=== PATIENT | male | born 1965 | race Caucasian/White ===

== ENCOUNTER 2018-09-28 21:33 | Emergency (ER) | payer SELFPAY ==
[~2018-09-28] VITALS: Ht 175.3 cm; Wt 65.9 kg
[~2018-09-28 21:33] MED LIST: ASPIRIN CHEWABL81 MG PO; ATORVASTATIN CA40 MG PO; BACTRIM DS1 TAB PO; FISH OIL1000 MG PO; GLIPIZIDE10 MG PO; LANTUS SC; LEVEMIR FLEXPEN SC; LISINOPRIL20 M1 PO; LOPID600 MG PO; LOVASTATIN20 MG PO; LOVASTATIN40 M1 PO; LYRICA50 MG PO; LYRICA75 MG PO; METFORMIN500 MG PO; NOVOLIN R IJ; NOVOLOG MIX; NOVOLOG MIX SC; TRICOR145 MG PO; VANCOMYCIN HCL1.5GM IV; [UNRECOGNIZED DRUG - OTHER] PO
[2018-09-28 22:40] LABS: IMMATURE GRANULOCYTES 0.4 % (0.0-5.0); MEAN CELL VOLUME 106.6 fL CALC (80.0-100.0); MEAN CORPUSCULAR HGB 34.6 pG CALC (26.0-32.0); MEAN CORPUSCULAR HGB CONC 32.5 g/L CALC (32.0-36.0); NEUT# 6.95 thou/uL (1.82-7.42); RED BLOOD COUNT 1.82 mill/uL (4.70-6.10); RED CELL DISTRI WIDTH 12.9 % (11.5-15.5)
[2018-09-28 22:47] LABS: HEMATOCRIT 19.4 % (39.0-50.0); HEMOGLOBIN 6.3 g/dl (14.0-18.0)
[2018-09-28 23:08] LABS: ALKALINE PHOSPHATASE 121 u/l (38-126); BUN 7 mg/dL (9-20); CHLORIDE 104 mmol/l (95-108); LIPASE 147 u/l (23-300); SGOT/AST 92 u/l (17-59)
[2018-09-28 23:18] LABS: ALBUMIN 2.6 g/dL (3.2-5.0); AMYLASE < 30 u/l (30-110); ANION GAP 16 (6-22 (CALC)); BILIRUBIN, TOTAL 0.3 mg/dL (0.0-1.4); BUN/CREATININE RATIO 6 (12-20 (CALC)); CARBON DIOXIDE 17 mmol/l (22-30); CREATININE 1.1 mg/dL (0.7-1.3); GFR > 60 ML/MIN (>=60 (CALC)); GFR FOR AFR.AMER. > 60 ML/MIN (>=60 (CALC)); POTASSIUM 3.3 mmol/l (3.5-5.1); SODIUM 134 mmol/l (137-146); TOTAL PROTEIN 5.3 g/dL (6.3-8.2)
[2018-09-28 23:21] LABS: MYOGLOBIN 67 ng/mL (0 - 121)
[2018-09-28 23:29] LABS: INTERNATIONAL NORMALIZED RATIO 1.1 RATIO (0.7-1.3); PROTHROMBIN TIME 11.6 SECONDS (9.0-12.5)
[2018-09-29 01:10] VITALS: BP 135/76
[2018-09-29 01:35] VITALS: BP 133/75
== END 2018-09-29 01:50 | disposition short-term general hospital (02) | DRG 379 ==
LOC: ED 21:33
PROVIDERS: Emergency Medicine
PROC: 30233N1 Transfusion of Nonautologous Red Blood Cells into Peripheral Vein, Percutaneous Approach (ICD-10-PCS; principal; 2018-09-29)
DX: K92.2 Gastrointestinal hemorrhage, unspecified (principal); R55 Syncope and collapse; R07.9 Chest pain, unspecified; D64.9 Anemia, unspecified; E87.6 Hypokalemia; F10.20 Alcohol dependence, uncomplicated; Y90.8 Blood alcohol level of 240 mg/100 ml or more; R51 Headache; Y92.009 Unspecified place in unspecified non-institutional (private) residence as the place of occurrence of the external cause
CPT/HCPCS: P9016; S0164

== ENCOUNTER 2019-03-11 09:10 | Emergency (ER) | payer MEDICAID ==
[~2019-03-11] VITALS: Ht 175.3 cm; Wt 80.0 kg
[2019-03-11] MEDS ORDERED: PAROXETINE10 MG PO (10:15)
[2019-03-11] MEDS ORDERED: TRESIBA100 UNIT/M SC (10:16)
[2019-03-11] MEDS ORDERED: ATORVASTATIN CA20 MG PO (10:16)
[2019-03-11 10:20] LABS: HEMATOCRIT 28.8 % (39.0-50.0); HEMOGLOBIN 9.6 g/dl (14.0-18.0); IMMATURE GRANULOCYTES 0.4 % (0.0-5.0); MEAN CELL VOLUME 95.4 fL CALC (80.0-100.0); MEAN CORPUSCULAR HGB 31.8 pG CALC (26.0-32.0); MEAN CORPUSCULAR HGB CONC 33.3 g/L CALC (32.0-36.0); NEUT# 5.84 thou/uL (1.82-7.42); RED BLOOD COUNT 3.02 mill/uL (4.70-6.10); RED CELL DISTRI WIDTH 13.9 % (11.5-15.5)
[2019-03-11 10:33] LABS: ALBUMIN 3.7 g/dL (3.2-5.0); BILIRUBIN, TOTAL 0.4 mg/dL (0.0-1.4); CREATININE 1.6 mg/dL (0.7-1.3); TOTAL PROTEIN 6.6 g/dL (6.3-8.2)
[2019-03-11] MEDS ORDERED: [UNRECOGNIZED DRUG - OTHER] PO (10:34)
[2019-03-11] MEDS ORDERED: NOVOLIN 70/30 SC (10:41)
[2019-03-11 10:42] LABS: POTASSIUM 5.4 mmol/l (3.5-5.1)
[2019-03-11] MEDS ORDERED: METOPROL TAR25 MG PO (10:46)
[2019-03-11] MEDS ORDERED: NIFEDIPINE ER60 M1 PO (10:48)
[2019-03-11] MEDS ORDERED: OMEGA 31000 MG PO (10:50)
[2019-03-11] MEDS ORDERED: VENLAFAXINE HCL75 M1 PO (10:52)
[2019-03-11] MEDS ORDERED: FERRAPLUS 90 PO (10:53)
[2019-03-11] MEDS ORDERED: GABAPENTIN100 MG PO (10:54)
[2019-03-11] MEDS ORDERED: FUROSEMIDE20 MG PO (10:54)
[2019-03-11] MEDS ORDERED: AUGMENTIN500TAB PO (10:55)
[2019-03-11] MEDS ORDERED: SANTYL250 UNIT/G TOP (10:56)
[2019-03-11] MEDS ORDERED: AMOXICILLIN/CL875 MG PO (11:25)
[2019-03-11 12:43] VITALS: BP 142/68
== END 2019-03-11 12:45 | disposition home or self-care (01) ==
LOC: ED 09:10
PROVIDERS: Family Medicine
DX: E11.65 Type 2 diabetes mellitus with hyperglycemia (principal); I10 Essential (primary) hypertension; F17.200 Nicotine dependence, unspecified, uncomplicated; T38.3X6A Underdosing of insulin and oral hypoglycemic [antidiabetic] drugs, initial encounter; Z79.4 Long term (current) use of insulin; Z91.128 Patient's intentional underdosing of medication regimen for other reason

== ENCOUNTER 2019-03-18 11:48 | Inpatient (IN) | payer MEDICAID ==
[~2019-03-18] VITALS: Ht 175.3 cm; Wt 85.0 kg
[2019-03-18] VITALS (7 sets, daily range): BP systolic 157–195; BP diastolic 73–94
[~2019-03-18 11:48] MED LIST changes: +AMOXICILLIN/CL875 MG PO; +ATORVASTATIN CA20 MG PO; +AUGMENTIN500TAB PO; +FERRAPLUS 90 PO; +FUROSEMIDE20 MG PO; +GABAPENTIN100 MG PO; +METOPROL TAR25 MG PO; +NIFEDIPINE ER60 M1 PO; +NOVOLIN 70/30 SC; +OMEGA 31000 MG PO; +PAROXETINE10 MG PO; +SANTYL250 UNIT/G TOP; +TRESIBA100 UNIT/M SC; +VENLAFAXINE HCL75 M1 PO; +[UNRECOGNIZED DRUG - OTHER] PO
--- NOTE | 2019-03-18 12:08 | NUR ---
PATIENT TO ROOM VIA WHEELCHAIR AND PHYSICIAN AT BEDSIDE FOR EVAL
--- NOTE | 2019-03-18 12:15 | NUR ---
EKG COMPLETED AND LABS COLLECTED. PT RESTING ON STRETCHER IN NAD. SA02 90% ON 3L NC AT THIS TIME. CALL FREEMAN WITHIN REACH.
[2019-03-18 12:31] LABS: HEMATOCRIT 29.7 % (39.0-50.0); HEMOGLOBIN 9.7 g/dl (14.0-18.0); IMMATURE GRANULOCYTES 0.6 % (0.0-5.0); MEAN CELL VOLUME 96.1 fL CALC (80.0-100.0); MEAN CORPUSCULAR HGB 31.4 pG CALC (26.0-32.0); MEAN CORPUSCULAR HGB CONC 32.7 g/L CALC (32.0-36.0); NEUT# 6.27 thou/uL (1.82-7.42); RED BLOOD COUNT 3.09 mill/uL (4.70-6.10)
[2019-03-18 12:44] LABS: ALBUMIN 3.9 g/dL (3.2-5.0); BILIRUBIN, TOTAL 0.3 mg/dL (0.0-1.4); CREATININE 1.8 mg/dL (0.7-1.3); TOTAL PROTEIN 7.6 g/dL (6.3-8.2)
--- NOTE | 2019-03-18 13:00 | NUR ---
PT RESTING IN STRETCHER IN NAD. PT REQUESTING SOMETHING TO EAT AND DRINK. SPO2 92% ON 3L, NC. PT AWARE OF NPO STATUS AND WAIT TIME. CALL FREEMAN WITHIN REACH.
--- NOTE | 2019-03-18 13:45 | NUR ---
IV FLUIDS INFUSING AT THIS TIME. PT AGGITATED STATING "NOTHING EVER GOES RIGHT IN MY LIFE" PT RESTING ON RIGHT SIDE IN STRETCHER AND WAS UPDATED ON PLAN OF CARE AND WAIT TIME. CALL FREEMAN WITHIN REACH.
--- NOTE | 2019-03-18 14:06 | NUR ---
PT YELLING OUT "I AM DONE WITH THIS, I AM OUT OF PATIENCE, I NEED TO LEAVE NOW". MD AT BEDSIDE TO TALK TO PT.
--- NOTE | 2019-03-18 14:10 | NUR ---
PER MD TO SIGN PT OUT AGAINST MEDICAL ADVISE. PT NOT COOPORATIVE AND IS REFUSING TO STAY.
--- NOTE | 2019-03-18 14:17 | NUR ---
DISCONNECTING PATIENTS EQUIPMENT BECAUSE HE WANTS TO GO AMA AND PT IS TALKING ON PHONOE WITH SCHEDULING AND STARTS TALKING ABOUT HOW HE CANNOT TAKE THIS ANYMORE GO HERE GO THERE, GO TO [place] GO TO BK, I CANNOT TAKE THIS ANYMORE I'M JUST GONNA PUT A BULLET IN MY HEAD TONIGHT. NURSE Deena MASSEY R.N. ALSO HEARD PT SAY THIS, WHEN I STATED YOU DON'T WANNA DO THAT PT STATES "WELL THATS WHATS GONNA HAPPEN, I CAN'T TAKE THIS ANYMORE" AND LEAVES UNIT, CHARGE NURSE, ENGINEERING CLERK AND MD NOTIFIED. POLICE DEPARTMENT NOTIFIED WELL.
--- NOTE | 2019-03-18 14:20 | NUR ---
MD AND WICK TENDER FOLLOWED PATIENT [facility] KEEPING CLOSE EYE ON PATIENT WHILE POLICE CONTACTED. CONTACT MADE WITH PATIENT BY MERLYN MURILLO AND PATIENT BROUGHT BACK TO THE ED. PATIENT STATED THAT HE WAS NOT GOING TO COOPERATE AND WOULD LEAVE THE FIRST CHANCE HE GOT. MD NOTIFIED AND POLICE AT BEDSIDE
--- NOTE | 2019-03-18 15:08 | NUR ---
MD AT BEDSIDE TO DISCUSS RESULTS AND PLAN OF CARE.
--- NOTE | 2019-03-18 15:17 | NUR ---
SBAR PRINTED TO FLOOR
--- NOTE | 2019-03-18 15:20 | NUR ---
PT YELLING FROM THE ROOM "I NEED TO SHIT AND YOU BETTER BRING ME SOMETHING OR I WILL SHIT ON THE FLOOR". BSC TO ROOM.
--- NOTE | 2019-03-18 15:34 | NUR ---
PATEINT REFUSING ALL MEDICAL CARE AT THIS TIME
--- NOTE | 2019-03-18 15:45 | NUR ---
TSQRD CONSULT PLACED FOR INFECTOUS DISEASE PATIENT REST QUIETLY STILL REFUSING ANY CARE AT THIS TIME
--- NOTE | 2019-03-18 16:40 | NUR ---
REPORT CALLED TO ICU FARHAN AWAITNG ADMISSION ORDERS
--- NOTE | 2019-03-18 16:55 | NUR ---
PT ARRIVED FROM ER VIA STRETCHER WITH SITTER AT BEDSIDE. AMBULATED TO THE BED. IV SITE INTACT.
--- NOTE | 2019-03-18 17:30 | NUR ---
ASSESSMENT IS COMPLTED: IV SITE IS FREE FROM REDNESS OR EDEMA. PT IS ALERT AND ORIENTED. BREATH SOUNDS ARE CLEAR,BILATERALLY, HR IS REG, PULSES ARE STRONG X4, ABD IS SOFT WITH ACTIVE BS,. CONTINUE TO OBSERVE AND MONITOR. DRESSING ON BILATERAL FEET CDI. PT WAS AT HYPERBARIC CHAMBER AND WAS SOB AND BROUGHT TO ER PER PT.
--- NOTE | 2019-03-18 18:00 | NUR ---
CALLED AND INQUIRED ABOUT PT. INFORMED OF THE BILAT FEET INFECTION THAT ARE BEING TAKEN CARE OF WITH WOUND CARE AND HYPERBARIC CHAMBER. IV VANCO BEING USED DAILY. THE MACHINE WOULD NOT CONNECT IN ICU.
--- NOTE | 2019-03-18 18:42 | NUR ---
BP MEDS PENDING BRACELET FROM REGISTRATION.
--- NOTE | 2019-03-18 19:22 | NUR ---
REPORT GIVEN BY FARHAN CARDONA. PATIENT ALERT AND ORIENTED. LAYING IN BED WITH SITTER PRESENT AT BEDSIDE. RESP EVEN AND UNLABORED. NO S/S OF DISTESS NOTED. PICC-VERA DRESSING INTACT. BILATERAL DRESSING ON FEET CDI. PLAN OF CARE DISCUSSED. PATIENT INFORMED TO CALL WITH ANY QUESTIONS OR CONCERNS. ASSESMENT COMPLETE AT THIS TIME.
--- NOTE | 2019-03-18 20:08 | NUR ---
PATIENT STATES THAT THE DRESSING ON BOTH FEET WERE CHANGED 03/18 IN THE MORNING BEFORE HE WAS ADMITTED. HE HAS DRESSING CHANGES PERFORMED THU-THU AT [facility]. HE HAS ALSO ASKED IF I COULD REMOVE THE BP CUFF AND PULSE OX. I TOLD HIM THAT I WILL STILL NEED TO GET HIS BP AND O2 SAT EVERY TWO HOURS, HE STATES THAT IT WAS FINE TO DUE SO. HE STATES THAT WTH BOTH ON HE FEEL TIED TO THE BED.
[2019-03-18] MEDS ORDERED: ASPIRIN81 MG PO (20:26)
[2019-03-18] MEDS ORDERED: GLIPIZIDE10 MG PO (20:26)
[2019-03-18] MEDS ORDERED: PAROXETINE10 MG PO (20:27)
[2019-03-18] MEDS ORDERED: TRESIBA100 UNIT/M SC (20:28)
[2019-03-18] MEDS ORDERED: [UNRECOGNIZED DRUG - OTHER] PO (20:29)
[2019-03-18] MEDS ORDERED: NOVOLIN 70/30 SC (20:30)
[2019-03-18] MEDS ORDERED: METOPROL TAR25 MG PO (20:31)
[2019-03-18] MEDS ORDERED: NIFEDIPINE60 MG PO (20:32)
[2019-03-18] MEDS ORDERED: OMEGA 31000 MG PO (20:32)
[2019-03-18] MEDS ORDERED: VENLAFAXINE HCL75 M1 PO (20:33)
[2019-03-18] MEDS ORDERED: FERRAPLUS 90 PO (20:34)
[2019-03-18] MEDS ORDERED: FUROSEMIDE20 MG PO (20:34)
[2019-03-18] MEDS ORDERED: GABAPENTIN100 MG PO (20:35)
--- NOTE | 2019-03-18 21:30 | NUR ---
PATIENT MED REC PERFORMED. DOCTOR INFORMED. SOME MEDICATION REORDERD PER MD ORDERS.
--- NOTE | 2019-03-18 22:50 | NUR ---
PATIENT IS EXPERIENCING SOB AND O2 SAT 80-85%. PATIENT WAS PLACED ON 2L VIA NC. O2 SAT IS NOW 92-96%.
--- NOTE | 2019-03-18 23:36 | NUR ---
PATIENT BP IS ELEVATED. PATIENT MEDICATED PER MD ORDER.
[2019-03-19] VITALS (10 sets, daily range): BP systolic 145–190; BP diastolic 70–99
--- NOTE | 2019-03-19 02:00 | NUR ---
PATIENT REFUSED 0200 VITALS
--- NOTE | 2019-03-19 04:10 | NUR ---
PATIENT AWAKE AND USING URINAL. RESP EVEN AND UNLABORED. NO S/S OF DISTRESS NOTED.
--- NOTE | 2019-03-19 04:49 | NUR ---
PATIENT MEDICATED FOR ELEVATED BP PER MD ORDERS
--- NOTE | 2019-03-19 06:13 | NUR ---
PATIENT RESTING WITH EYES CLOSED. RESP EVEN AND UNLABORED. NO S/S OF DISTRESS NOTED.
--- NOTE | 2019-03-19 07:30 | NUR ---
pt resting in bed with eyes closed; no apparent distress noted; easily aroused; pt offers complaints of "splitting headache" and left foot pain; will medicate; no n/v noted; no sob; resp even and unlabored; lungs clear; skin color wnl; ra at this time; hr reg; doppler pedal pulses; no edema noted; sr-st on monitor; abd soft with bs present; no bm noted per comic book writer; pt voiding without complication; bsc/ urinal; VERA picc intact with no redness or edema noted at site; dressing cdi to bilat feet; pt with sitter at bedside/ gracia act; plan of care/ am meds explained; call light within reach; will continue to monitor
--- NOTE | 2019-03-19 08:19 | NUR ---
restless in bed; no apparent distress noted; sr on monitor; sitter at bedside; iv intact; call light within reach; will continue to monitor
--- NOTE | 2019-03-19 09:00 | NUR ---
CISCO Terrell present at bedside to assess pt and discuss plan of care
--- NOTE | 2019-03-19 09:08 | NUR ---
am meds explained and administered; picc flushed with good blood aspirate noted; abt infusing without complication; will continue to monitor
--- NOTE | 2019-03-19 10:15 | NUR ---
awake in bed; pt offers no complaints at this time; iv patent; vanco infusing without complication; sr on monitor; sitter present at bedside; call light within reach; will continue to monitor
--- NOTE | 2019-03-19 12:06 | NUR ---
awake in bed; no apparent distress noted; pt offers no complaints; self bathe/ linen changed per staff; sr on monitor; iv intact; sitter present at bedside; call light within reach; will continue to monitor
--- NOTE | 2019-03-19 13:00 | NUR ---
Dr Rodriguez and CISCO Terrell present at bedside to assess pt and discuss plan of care; dressings removed per MD; serosang drainage noted to bilat feet wounds; photo obtained; orders received to apply simple dressing; wounds conver with nonadhesive pad and gauze; secured with kerlix and tape; bp reassessed; call light within reach; will continue to monitor
--- NOTE | 2019-03-19 14:07 | NUR ---
resting in bed with eye closed; no apparent distress noted; resp even and unlabored; sr on monitor; iv intact; sitter present at bedside; call light within reach; will continue to monitor
--- NOTE | 2019-03-19 15:25 | NUR ---
returned to unit in stable condition; hair washed as per request
--- NOTE | 2019-03-19 16:20 | NUR ---
resting on left side with eyes closed; frequent shaking of legs noted; no apparent distress noted; iv intact; dressing cdi to bilat feet; ra; no sob; sr on monitor; call light within reach; will continue to monitor
--- NOTE | 2019-03-19 17:26 | NUR ---
accucheck obtained; pt sitting on side of bed for dinner
--- NOTE | 2019-03-19 18:06 | NUR ---
pt awake in bed; no apparent distress noted; pt offers no complaints; iv intact; ra; calm and cooperative; sitter remains at pt bedside; call light within reach
--- NOTE | 2019-03-19 19:15 | NUR ---
PATIENT LAYS WITH HOB 30 DEGREES. NO COMPLAINTS OF SOB OR NO SOB OBSERVED. ON ROOM AIR. WATCHES TV. ALERT AND ORIENTED X4. HEAD TO TOE NURSING ASSESSMENT COMPLETED, SEE CHARTING. POC FOR TONIGHT DISCUSSED. VERA 1 LUMEN PICC FLUSHES AND RETURNS BLOOD PROPERLY. DRESSING ON BILATERAL FEET ARE CDI. DENIES PAIN. PATIENT IS ABLE TO SIT UP ON SIDE OF BED TO EAT AND DRINK. HE REQUESTED COFFEE AND SALTINE CRACKERS. SR ON TELEMETRY. AFEBRILE. WILL CONTINUE TO MONITOR. CALL LIGHT WITHIN REACH.
--- NOTE | 2019-03-19 20:40 | NUR ---
BLOOD WITHDRAWN FROM VERA PICC FOR VANCO TROUGH. VERA PICC FLUSHES AND RETURNS BLOOD PROPERLY, DRESSING CDI.
--- NOTE | 2019-03-19 20:58 | NUR ---
PATIENT REQUESTED CUPS OF COFFEE AND SNACKS. I OFFERED HIM LOW SUGAR PUDDING. HE AGREES, I ALSO INSTRUCTED HIM THAT I WILL BE CHECKING HIS BLOOD SUGAR FIRST.
--- NOTE | 2019-03-19 21:35 | NUR ---
ANTIBIOTIC INFUSING NOW AFTER VANCO TROUGH RESULT. THE IV MACHINE STARTED TO BEEP AND THE PATIENT EXCLAIMED, "I AIN'T GONNA BE PUTTING UP WITH THIS." I INSTRCTED HIM THAT THE ANTIBIOTIC TIME TO BE INFUSED IS TWO HOURS AND HE CONTINUED TO EXCLAIM, "I AIN'T GONNA PUT UP WITH THAT." I UNSTRUCTED HIM THAT THE IV MACHINES STARTS TO BEEP IF IT HAS AIR IN THE LINE OR WHEN IT IS FINISHED INFUSING, AND AIR IN THE LINE WAS THE REASON IT WAS BEEPING AT THAT MOMENT, WHICH I FIXED RIGHT AWAY. NO MORE COMPLAINTS RECEIVED.
--- NOTE | 2019-03-19 22:25 | NUR ---
PATIENT ABLE TO SAFELY TRANSFER TO AND BSC, HAD MODERATE SIZED FORMED BROWN STOOL. NOW LAYS WITH HOB 30 DEGREES. BP 190/99 RIGHT AFTER LAYING BACK IN BED. INSTRUCTED PATIENT I WILL RECHECK AGAIN AFTER HE HAS NOT DONE ANY ACTIVITY.
--- NOTE | 2019-03-19 22:35 | NUR ---
PATIENT C/O MONITOR MACHINE BEEPING, I HAVE EXPLAINED TO HIM IT IS BECAUSE HIS BLOOD PRESSURE IS RENZO HIGH WHICH I HAD ALREADY INFORMED HIM OF HIS HIGH BP, HE STATES, "WHEN MY BLOOD PRESSURE IS HIGH THEY GIVE ME A SHOT OF MEDICINE." I HAVE EDUCATED ON PARAMETERS FOR MEDICATION. BP WAS RECHECKED AND NOW READS 159/83.
[2019-03-20] VITALS (10 sets, daily range): BP systolic 134–189; BP diastolic 70–87
--- NOTE | 2019-03-20 00:15 | NUR ---
PATIENT LAYS ON HIS R-SIDE, COOPERATES TO HAVE BLOOD PRESSURE, PULSE OX, AND TEMP DONE. NO COMPLAINTS OF PAIN. WATCHES TV. SITTER PRESENT. CALL LIGHT WITHIN REACH. WILL CONTINUE TO MONITOR. HAS ALSO HAD A CUP OF COFFEE AND SALTINE CRACKERS.
--- NOTE | 2019-03-20 02:50 | NUR ---
PATIENT AWAKE AND ALERT, REQUESTED CRACKERS AND COFFEE. SITS UP ON SIDE OF BED. NO ACUTE DISTRES SHOWN. CALL LIGHT WITHIN REACH.
--- NOTE | 2019-03-20 04:20 | NUR ---
PATIENT LAYS ON HID RIGHT SIDE, AROUSES WITH PAINFUL STIMULI. NO COMPLAINTS. NO NEEDS AT THIS TIME. CALL LIGHT WITHIN REACH. WILL CONTINUE TO MONITOR.
[2019-03-20 04:39] LABS: HEMATOCRIT 27.4 % (39.0-50.0); HEMOGLOBIN 9.1 g/dl (14.0-18.0); MEAN CELL VOLUME 94.5 fL CALC (80.0-100.0); MEAN CORPUSCULAR HGB 31.4 pG CALC (26.0-32.0); MEAN CORPUSCULAR HGB CONC 33.2 g/L CALC (32.0-36.0); RED BLOOD COUNT 2.9 mill/uL (4.70-6.10); RED CELL DISTRI WIDTH 13.8 % (11.5-15.5)
[2019-03-20 05:01] LABS: ANION GAP 10 (6-22 (CALC)); BUN 22 mg/dL (9-20); BUN/CREATININE RATIO 16 (12-20 (CALC)); CARBON DIOXIDE 25 mmol/l (22-30); CHLORIDE 105 mmol/l (95-108); CREATININE 1.3 mg/dL (0.7-1.3); GFR 58 ML/MIN (>=60 (CALC)); GFR FOR AFR.AMER. > 60 ML/MIN (>=60 (CALC)); POTASSIUM 4.9 mmol/l (3.5-5.1); SODIUM 135 mmol/l (137-146)
--- NOTE | 2019-03-20 06:01 | NUR ---
PATIENT AWAKENS AND COMPLAINS OF HEADACHE, TYLENOL OFFERED AND GIVEN. AFEBRILE. REQUESTS A CUP OF COFFEE. SR ON TELEMETRY. SITTER PRESENT. CALL LIGHT WITHIN REACH. BSC WAS ALSO EMPTIED.
--- NOTE | 2019-03-20 07:15 | NUR ---
pt resting in bed with eyes closed; easily aroused; offers complaints of headache; prev medicated; no n/v/ noted; assessment completed at thist jessica; pt alert and oriented; resp even and unlabored; lungs clear; skin color wnl; ra; hr reg; doppler pedal pulses; no edema noted; sr on monitor; abd soft with bs present; pt reports bm last pm; no urine to inspect at this time; urinal/ bsc present; SL picc intact to maurice; no redness or edema noted at site; dressings cdi to bilat feet; pt remains under Avelar Act; sitter present at bedside; call light within reach; will continue to monitor; calm and cooperative with care at present
--- NOTE | 2019-03-20 08:05 | NUR ---
resting with eyes closed; no apparent distress noted; sr on monitor; sitter at bedside; will continue to monitor
--- NOTE | 2019-03-20 09:00 | NUR ---
am meds explained and administered; CISCO Terrell present at bedside; will continue to monitor
--- NOTE | 2019-03-20 10:12 | NUR ---
resting with eyes closed; occasional restlessness noted; sr on monitor; sitter present at bedside; call light within reach; will continue to monitor
--- NOTE | 2019-03-20 11:30 | NUR ---
accucheck of 346; freq snacks/diabetic diet explained; pt admtis to being a prev smoker and wanting a cigarette; nicotine patch to be ordered; dressings to bilat feet changed as per orders; sr on monitor; pt requesting pitcher of coffee; decaf provided; picc flushed and patent with good blood aspirate; will continue to monitor
--- NOTE | 2019-03-20 12:05 | NUR ---
awake in bed; offers no complaints; no apparent distress noted; sr on monitor; iv intact; call light within reach; will continue to monitor
--- NOTE | 2019-03-20 13:27 | NUR ---
Dr Rodriguez and CISCO Terrell present at bedside to assess pt and discuss plan of care
--- NOTE | 2019-03-20 14:10 | NUR ---
pt awake in bed; pt requesting to use phone to call mom; [place] protocol explained; pt provided portable phone to call mother and now declines; sr on monitor; iv intact; pt offers no complaints; sitter present at bedside; will continue to monitor
--- NOTE | 2019-03-20 16:13 | NUR ---
resting in bed on left side with eyes closed; no apparent distress noted; iv intact; sr on monitor; sitter at bedside; call light within reach; will continue to monitor
--- NOTE | 2019-03-20 17:49 | NUR ---
awake in bed; no apparent distress noted; pt offers no complaints; iv intact; sr on monitor; pt requesting coffee/ provided; calm and cooperative; sitter at bedside; call light within reach
--- NOTE | 2019-03-20 19:39 | NUR ---
PT AWAKE RESTING IN BED WATCHING T.V. TEMP 98.1. MONITOR SR HR 80'S. PT IS ALERT AND ORIENTED X3. PLEASANT AND COOPERATIVE. RESP EVEN AND UNLABORED. LUNGS CLEAR BILAT. ABD SOFT AND NONDISTENDED WITH BOWEL SOUNDS PRESENT. RT UPPER ARM SINGLE LUMEN PICC IS PATENT WITH DRESSING CLEAN AND DRY. NO LOWER EXT EDEMA NOTED. PEDAL PULSES PALPATED BILAT. BILAT FOOT DRESSINGS CLEAN AND DRY WITH NO DRAINAGE PRESENT. PER SHIFT REPORT BILAT LOWER EXT DRESSINGS CHANGED TODAY ON DAYSHI. PT DENIES ANY DISCOMFORT AT THIS TIME. MONITOR READING SR. SITTER AT BEDSIDE. WILL CONTINUE TO CLOSELY MONITOR. FREQUENT ROUNDS MADE. CALL FREEMAN WITHIN REACH.
--- NOTE | 2019-03-20 21:04 | NUR ---
PT EATING EVENING SNACK. VSS. B/P 145/74, HR 80. PICC PATENT. RESP EVEN AND UNLABORED. OFFERS NO COMPLAINTS. SITTER AT BEDSIDE. CALL FREEMAN WITHIN REACH.
--- NOTE | 2019-03-20 22:00 | NUR ---
RESTING IN BED WATCHING T.V. VOIDED 500CC OF CLEAR YELLOW URINE. MONITOR SR HR 80'S. OFFERS NO COMPLAINTS. SITTER AT BEDSIDE. FREQUENT ROUNDS MADE. CALL FREEMAN WITHIN REACH.
--- NOTE | 2019-03-21 00:15 | NUR ---
PT RESTING IN BED WATCHING T.V. VSS. RESP EVEN AND UNLABORED. NO DISTRESS NOTED. PT FREQUENTLY ASKING FOR SNACKS AND COFFEE. OFFERS NO COMPLAINTS. MONITOR READING SR. SITTER AT BEDSIDE. FREQUENT ROUNDS MADE. CALL FREEMAN WITHIN REACH.
--- NOTE | 2019-03-21 01:33 | NUR ---
MEDICATED WITH TYLENOL 1000MG PO FOR DISCOMFORT IN BILAT FEET. CALL FREEMAN WITHIN REACH. SITTER AT BEDSIDE.
--- NOTE | 2019-03-21 03:52 | NUR ---
PT RESTING IN BED WITH EYES CLOSED. RESP EVEN AND UNLABORED. NO DISTRESS NOTED. PICC PATENT. SITTER AT BEDSIDE. FREQUENT ROUNDS MADE. CALL FREEMAN WITHIN REACH.
--- NOTE | 2019-03-21 04:30 | NUR ---
PT AWAKE RESTING IN BED. B/P 164/82. SR HR 80'S. PICC PATENT. RESP EVEN AND UNLABORED. PT FREQUENTLY WANTING COFFEE. OFFERS NO COMPLAINTS. SITTER AT BEDSIDE. ASSESSMENT UNCHANGED. FREQUENT ROUNDS MADE. CALL FREEMAN WITHIN REACH.
[2019-03-21 04:33] VITALS: BP 164/82
--- NOTE | 2019-03-21 06:05 | NUR ---
PT REFUSES TO LEAVE B/P CUFF ON FOR HOURLY VITALS. B/P WAS TAKEN WHEN PT AGREED TO HAVE B/P TAKEN.
[2019-03-21 07:00] VITALS: BP 156/90
--- NOTE | 2019-03-21 07:07 | NUR ---
STANDING UP ON SIDE OF BED TO USE URINAL.
--- NOTE | 2019-03-21 07:19 | NUR ---
PT SITTING UP ON SIDE OF BED, EATING BREAKFAST. PT DEMANDING COFFEE PRIOR TO TRAY DELIVERY; PT ADVISED COFFEE WILL BE ON TRAY, PT STATES HE WANTED COFFEE "NOW!" PT VERBALLY SELF UP, STATING HE "WANTS TO KNOW HIS RIGHTS UNDER THIS ACT BC HE CANT EVEN TAKE A PISS OR SHIT WITHOUT SOMEONE WATCHING HIM IN THIS [facility] ROOM." SITTER AT BEDSIDE. WILL CONTINUE TO MONIOR.
--- NOTE | 2019-03-21 07:26 | NUR ---
PT RETURNED TO BED, CLINICAL MENTAL HEALTH COUNSELOR ASSISTED PT WITH COVERS TO WHICH PT REPLIED "OH COME ON, IM NOT A CHILD". WILL LIMIT INTERACTIONS WITH PT UNTIL MD ROUNDS.
--- NOTE | 2019-03-21 08:29 | NUR ---
GEREMIAS SALOMON @BEDSIDE TO ASSESS PT.
--- NOTE | 2019-03-21 08:32 | NUR ---
PT BEING VERBALLY AGRESSIVE WITH DECKHAND FISHING VESSEL, CUSSING, MAKING JERKY MOVEMENTS. SECURITY CALLED TO UNIT.
--- NOTE | 2019-03-21 08:39 | NUR ---
LAB @BEDSIDE FOR DRAW. BLOOD DRAWN FROM PICC LINE BY ICU STAFF.
[2019-03-21 08:48] LABS: HEMATOCRIT 29.5 % (39.0-50.0); HEMOGLOBIN 9.9 g/dl (14.0-18.0); IMMATURE GRANULOCYTES 0.3 % (0.0-5.0); MEAN CELL VOLUME 93.4 fL CALC (80.0-100.0); MEAN CORPUSCULAR HGB 31.3 pG CALC (26.0-32.0); MEAN CORPUSCULAR HGB CONC 33.6 g/L CALC (32.0-36.0); NEUT# 4.84 thou/uL (1.82-7.42); RED BLOOD COUNT 3.16 mill/uL (4.70-6.10); RED CELL DISTRI WIDTH 13.5 % (11.5-15.5)
[2019-03-21 09:00] VITALS: BP 178/87
--- NOTE | 2019-03-21 09:16 | NUR ---
DR GUTIERREZ @BEDSIDE FOR WOUND CONSULT. REDRESSEED BILATERAL FEET. PT CONTINUES TO BE ANGRY & VERBALLY AGGRESSIVE. PT STATES "THE LONGER HE STAYS HERE THE WORST HE'LL GET". WHEN EXPLAINING THE BEARDEN ACT, PT STATES HE "DOESNT WANT TO HURT HIMSELF BUT HE MIGHT HURT US". PT NOTIFIED IT IS A FEDERAL OFFENSE TO BE PHYSICALLY AGGRESSIVE TOWARDS MEDICAL PERSONEL. PT STATES HE "WILL TAKE THE 5TH". SITTER REMAINS AT BEDSIDE.
[2019-03-21 09:20] LABS: ANION GAP 12 (6-22 (CALC)); BUN 19 mg/dL (9-20); BUN/CREATININE RATIO 14 (12-20 (CALC)); CARBON DIOXIDE 25 mmol/l (22-30); CHLORIDE 106 mmol/l (95-108); CREATININE 1.3 mg/dL (0.7-1.3); GFR 58 ML/MIN (>=60 (CALC)); GFR FOR AFR.AMER. > 60 ML/MIN (>=60 (CALC)); POTASSIUM 5.1 mmol/l (3.5-5.1); SODIUM 138 mmol/l (137-146)
--- NOTE | 2019-03-21 09:39 | NUR ---
CONSULT FOR I&D PLACED ON TSRD FOR URGENT APPOINTMENT AT 1600. SITTER REMAINS AT BEDSIDE. WILL CONTINUE TO MONITOR.
--- NOTE | 2019-03-21 10:40 | NUR ---
PT BECOMING AGGITATED, ASKING FOR WATER. PT EDUCATED ON NPO STATUS. PT CUSSING & PULLING ON BILATERAL SOFT WRIST RESTRAINTS. PT DOES NOT HAVE AN ACCENT AT THIS TIME, STATING "THIS IS BULLSHIT, HE DIDN'T TELL THE OFFICERS ANYTHING. FUCK".
[2019-03-21 10:50] LABS: CALCULATED LDLCHOLESTEROL 74 mg/dL (62-129 (CALC)); CHOLESTEROL HDL RATIO 6.7 (<4.4 (CALC)); HDL CHOLESTEROL 24 mg/dL (>=40); MAGNESIUM 1.8 mg/dL (1.6-2.3); TOTAL TRIGLYCERIDES 309 mg/dl (30-149); VLDL CHOLESTROL 62 mg/dl (8-62 (CALC))
[2019-03-21 10:56] LABS: TOTAL CHOLESTEROL 160 mg/dl (0-199)
--- NOTE | 2019-03-21 11:28 | NUR ---
DR KIDD & GEREMIAS SALOMON @BEDSIDE FOR ASSESSMENT.
[2019-03-21 12:00] VITALS: BP 180/93
--- NOTE | 2019-03-21 12:47 | NUR ---
PT LAYING IN BED, WATCHING TV. NO S/S OF DISTRESS AT THIS TIME. SITTER REMAINS @BEDSIDE. WILL CONTINUE TO MONITOR.
--- NOTE | 2019-03-21 13:41 | NUR ---
FARHAN QUINTANA @BEDSIDE INFORMING PT THAT THERE WAS NO MEDICAL HOLD ON HIM SO HIS BEARDEN ACT WILL AT 1510 TODAY AND HE MAY SIGN OUT AMA AFTER THAT.
[2019-03-21 14:00] VITALS: BP 169/82
--- NOTE | 2019-03-21 14:38 | NUR ---
DR KIDD AWARE PT WISHES TO LEAVE AMA AT 1510. PER MD, PT SHOULD F/UP WITH WOUND CARE.
--- NOTE | 2019-03-21 15:20 | NUR ---
PT SIGNED AMA CONSENT; ADVISED TO F/UP WITH WOUND CARE. PICC CARE FLUSHED WITH HEPARIN PER PROTOCOL. PT DRESSED HIMSELF, USED UNIT PORTABLE PHONE TO CALL FOR A RIDE HOME. PT REQUESTED COPY OF AMA PAPERWORK.
--- NOTE | 2019-03-21 15:26 | NUR ---
PT AMBULATED OUT THE DOOR WITH STEADY GAIT IN STABLE CONDITION.
== END 2019-03-21 15:26 | disposition left against medical advice (07) | DRG 880 ==
LOC: ED 11:48 → ED-I 15:32 → ED 15:48 → ICU 15:49
PROVIDERS: Family Medicine; Nurse Practitioner Family; ADMIT Internal Medicine; ATTEND Internal Medicine
DX: R45.851 Suicidal ideations (principal); L97.528 Non-pressure chronic ulcer of other part of left foot with other specified severity; L97.518 Non-pressure chronic ulcer of other part of right foot with other specified severity; R09.02 Hypoxemia; E11.621 Type 2 diabetes mellitus with foot ulcer; E11.51 Type 2 diabetes mellitus with diabetic peripheral angiopathy without gangrene; I70.245 Atherosclerosis of native arteries of left leg with ulceration of other part of foot; I70.235 Atherosclerosis of native arteries of right leg with ulceration of other part of foot; E11.65 Type 2 diabetes mellitus with hyperglycemia; I10 Essential (primary) hypertension; E78.5 Hyperlipidemia, unspecified; I44.7 Left bundle-branch block, unspecified; E11.40 Type 2 diabetes mellitus with diabetic neuropathy, unspecified; F32.9 Major depressive disorder, single episode, unspecified; I25.10 Atherosclerotic heart disease of native coronary artery without angina pectoris; F17.200 Nicotine dependence, unspecified, uncomplicated; I25.2 Old myocardial infarction; Z89.412 Acquired absence of left great toe; Z79.4 Long term (current) use of insulin; Z89.422 Acquired absence of other left toe(s); T38.3X6A Underdosing of insulin and oral hypoglycemic [antidiabetic] drugs, initial encounter; Z91.128 Patient's intentional underdosing of medication regimen for other reason; Z91.11 Patient's noncompliance with dietary regimen
CPT/HCPCS: Q9967

== ENCOUNTER 2019-04-11 08:51 | Inpatient (IN) | payer MEDICAID ==
[~2019-04-11] VITALS: Ht 175.3 cm; Wt 97.8 kg
[~2019-04-11 08:51] MED LIST changes: +ASPIRIN81 MG PO; +GABAPENTIN400 M2 PO; +LASIX 40 MG TAB40 MG PO; +NIFEDIPINE60 MG PO; +TOPROL XL PO
[2019-04-11 10:00] LABS: HEMATOCRIT 24.6 % (39.0-50.0); HEMOGLOBIN 8.1 g/dl (14.0-18.0); IMMATURE GRANULOCYTES 0.4 % (0.0-5.0); MEAN CELL VOLUME 95.3 fL CALC (80.0-100.0); MEAN CORPUSCULAR HGB 31.4 pG CALC (26.0-32.0); MEAN CORPUSCULAR HGB CONC 32.9 g/L CALC (32.0-36.0); NEUT# 7.87 thou/uL (1.82-7.42); RED BLOOD COUNT 2.58 mill/uL (4.70-6.10); RED CELL DISTRI WIDTH 14.1 % (11.5-15.5)
[2019-04-11 10:26] LABS: BILIRUBIN, TOTAL 0.4 mg/dL (0.0-1.4); POTASSIUM 4.5 mmol/l (3.5-5.1); TOTAL PROTEIN 7.9 g/dL (6.3-8.2)
[2019-04-11 10:28] LABS: CREATININE 2.3 mg/dL (0.7-1.3)
[2019-04-11] MEDS ORDERED: LIPITOR20 M1 PO (10:30)
[2019-04-11] MEDS ORDERED: TRIGLIDE160 MG PO (10:32)
[2019-04-11] MEDS ORDERED: ACCOLATE10 MG PO (10:33)
[2019-04-11 13:47] VITALS: BP 139/69
[2019-04-11 16:23] VITALS: BP 134/64
[2019-04-11 20:03] VITALS: BP 156/77
[2019-04-12] VITALS (12 sets, daily range): BP systolic 135–162; BP diastolic 52–80
[2019-04-12 05:29] LABS: HEMATOCRIT 23.8 % (39.0-50.0); HEMOGLOBIN 7.7 g/dl (14.0-18.0); IMMATURE GRANULOCYTES 0.6 % (0.0-5.0); MEAN CELL VOLUME 96.7 fL CALC (80.0-100.0); MEAN CORPUSCULAR HGB 31.3 pG CALC (26.0-32.0); MEAN CORPUSCULAR HGB CONC 32.4 g/L CALC (32.0-36.0); NEUT# 6.56 thou/uL (1.82-7.42); RED BLOOD COUNT 2.46 mill/uL (4.70-6.10); RED CELL DISTRI WIDTH 14.2 % (11.5-15.5)
[2019-04-12 05:46] LABS: CREATININE 1.9 mg/dL (0.7-1.3); MAGNESIUM 2.1 mg/dL (1.6-2.3); POTASSIUM 4.6 mmol/l (3.5-5.1)
[2019-04-13] VITALS (7 sets, daily range): BP systolic 178–185; BP diastolic 85–93
[2019-04-13 06:00] LABS: URINE CLARITY CLOUDY; URINE COLOR YELLOW
[2019-04-13 06:01] LABS: URINE BILIRUBIN - DIPSTICK NEGATIVE (NEGATIVE); URINE BLOOD DIPSTICK SMALL (NEGATIVE); URINE GLUCOSE - DIPSTICK >=1000 mg/dL (NEGATIVE); URINE KETONE Negative (NEGATIVE); URINE LEUK ESTERASE NEGATIVE (Negative); URINE NITRITE - DIPSTICK NEGATIVE (Negative); URINE PH 5.5 (4.5-8.0); URINE PROTEIN - DIPSTICK 100 mg/dL (NEG-TRACE); URINE RBC 0-2 RBC/hpf (0-5); URINE SPECIFIC GRAVITY 1.025; URINE UROBILINOGEN - DIPSTICK 0.2 E.U./dL (0.2); URINE WBC 0-2 WBC/hpf (0-5)
[2019-04-13 07:51] LABS: HEMATOCRIT 27.4 % (39.0-50.0); HEMOGLOBIN 9.1 g/dl (14.0-18.0); IMMATURE GRANULOCYTES 0.5 % (0.0-5.0); MEAN CELL VOLUME 93.5 fL CALC (80.0-100.0); MEAN CORPUSCULAR HGB 31.1 pG CALC (26.0-32.0); MEAN CORPUSCULAR HGB CONC 33.2 g/L CALC (32.0-36.0); NEUT# 7.68 thou/uL (1.82-7.42); RED BLOOD COUNT 2.93 mill/uL (4.70-6.10); RED CELL DISTRI WIDTH 14.8 % (11.5-15.5)
[2019-04-13 08:15] LABS: ALBUMIN 3.4 g/dL (3.2-5.0); ALKALINE PHOSPHATASE 83 u/l (38-126); ANION GAP 17 (6-22 (CALC)); BILIRUBIN, TOTAL 0.3 mg/dL (0.0-1.4); BUN 29 mg/dL (9-20); BUN/CREATININE RATIO 20 (12-20 (CALC)); CARBON DIOXIDE 17 mmol/l (22-30); CHLORIDE 107 mmol/l (95-108); CREATININE 1.4 mg/dL (0.7-1.3); GFR 53 ML/MIN (>=60 (CALC)); GFR FOR AFR.AMER. > 60 ML/MIN (>=60 (CALC)); POTASSIUM 5.1 mmol/l (3.5-5.1); SGOT/AST 20 u/l (17-59); SODIUM 137 mmol/l (137-146); TOTAL PROTEIN 6.6 g/dL (6.3-8.2)
[2019-04-14] VITALS (7 sets, daily range): BP systolic 119–179; BP diastolic 65–88
[2019-04-14 05:00] LABS: HEMATOCRIT 27.8 % (39.0-50.0); IMMATURE GRANULOCYTES 0.5 % (0.0-5.0); MEAN CELL VOLUME 95.5 fL CALC (80.0-100.0); MEAN CORPUSCULAR HGB 30.9 pG CALC (26.0-32.0); MEAN CORPUSCULAR HGB CONC 32.4 g/L CALC (32.0-36.0); NEUT# 8.94 thou/uL (1.82-7.42); RED BLOOD COUNT 2.91 mill/uL (4.70-6.10); RED CELL DISTRI WIDTH 14.8 % (11.5-15.5)
[2019-04-14 05:28] LABS: ANION GAP 14 (6-22 (CALC)); BUN 37 mg/dL (9-20); BUN/CREATININE RATIO 25 (12-20 (CALC)); CARBON DIOXIDE 20 mmol/l (22-30); CHLORIDE 108 mmol/l (95-108); CREATININE 1.4 mg/dL (0.7-1.3); GFR 53 ML/MIN (>=60 (CALC)); GFR FOR AFR.AMER. > 60 ML/MIN (>=60 (CALC)); MAGNESIUM 2.1 mg/dL (1.6-2.3); SODIUM 137 mmol/l (137-146)
[2019-04-15] VITALS (13 sets, daily range): BP systolic 144–184; BP diastolic 56–92
[2019-04-15 05:36] LABS: HEMATOCRIT 26.8 % (39.0-50.0); HEMOGLOBIN 8.5 g/dl (14.0-18.0); IMMATURE GRANULOCYTES 0.5 % (0.0-5.0); MEAN CELL VOLUME 95.7 fL CALC (80.0-100.0); MEAN CORPUSCULAR HGB 30.4 pG CALC (26.0-32.0); MEAN CORPUSCULAR HGB CONC 31.7 g/L CALC (32.0-36.0); NEUT# 6.04 thou/uL (1.82-7.42); RED BLOOD COUNT 2.8 mill/uL (4.70-6.10); RED CELL DISTRI WIDTH 14.6 % (11.5-15.5)
[2019-04-15 06:07] LABS: ANION GAP 13 (6-22 (CALC)); BUN 34 mg/dL (9-20); BUN/CREATININE RATIO 24 (12-20 (CALC)); CARBON DIOXIDE 22 mmol/l (22-30); CHLORIDE 109 mmol/l (95-108); CREATININE 1.4 mg/dL (0.7-1.3); GFR 53 ML/MIN (>=60 (CALC)); GFR FOR AFR.AMER. > 60 ML/MIN (>=60 (CALC)); MAGNESIUM 2.1 mg/dL (1.6-2.3); POTASSIUM 4.7 mmol/l (3.5-5.1); SODIUM 138 mmol/l (137-146)
[2019-04-16 04:35] VITALS: BP 154/80
[2019-04-16 05:45] LABS: HEMATOCRIT 26.5 % (39.0-50.0); HEMOGLOBIN 8.7 g/dl (14.0-18.0); IMMATURE GRANULOCYTES 0.5 % (0.0-5.0); MEAN CELL VOLUME 96.4 fL CALC (80.0-100.0); MEAN CORPUSCULAR HGB 31.6 pG CALC (26.0-32.0); MEAN CORPUSCULAR HGB CONC 32.8 g/L CALC (32.0-36.0); NEUT# 8.54 thou/uL (1.82-7.42); RED BLOOD COUNT 2.75 mill/uL (4.70-6.10); RED CELL DISTRI WIDTH 14.5 % (11.5-15.5)
[2019-04-16 06:12] LABS: CREATININE 1.5 mg/dL (0.7-1.3)
[2019-04-16 09:00] VITALS: BP 155/77
[2019-04-16 10:52] VITALS: BP 155/77
[2019-04-16 15:05] VITALS: BP 177/85
[2019-04-16 19:36] VITALS: BP 183/85
[2019-04-16 22:10] VITALS: BP 150/72
[2019-04-17 04:52] VITALS: BP 171/84
[2019-04-17 07:50] VITALS: BP 139/64
[2019-04-17 10:00] VITALS: BP 119/78; BP 169/78
[2019-04-17 15:55] VITALS: BP 144/77
[2019-04-17 19:30] VITALS: BP 166/76
[2019-04-17 23:23] VITALS: BP 189/90
[2019-04-18 00:10] VITALS: BP 157/80
[2019-04-18 00:47] VITALS: BP 157/80
[2019-04-18 03:40] VITALS: BP 159/85
[2019-04-18 08:45] VITALS: BP 141/77
[2019-04-18 14:23] LABS: HEMATOCRIT 26.7 % (39.0-50.0); HEMOGLOBIN 8.5 g/dl (14.0-18.0); IMMATURE GRANULOCYTES 0.5 % (0.0-5.0); MEAN CORPUSCULAR HGB 30.2 pG CALC (26.0-32.0); MEAN CORPUSCULAR HGB CONC 31.8 g/L CALC (32.0-36.0); NEUT# 7.11 thou/uL (1.82-7.42); RED BLOOD COUNT 2.81 mill/uL (4.70-6.10)
[2019-04-18 15:24] VITALS: BP 188/88
[2019-04-18 19:28] VITALS: BP 194/92
[2019-04-19 04:24] VITALS: BP 156/76
[2019-04-19 05:49] LABS: CREATININE 1.6 mg/dL (0.7-1.3); HEMATOCRIT 26.2 % (39.0-50.0); HEMOGLOBIN 8.4 g/dl (14.0-18.0); IMMATURE GRANULOCYTES 0.4 % (0.0-5.0); MAGNESIUM 1.9 mg/dL (1.6-2.3); MEAN CELL VOLUME 94.9 fL CALC (80.0-100.0); MEAN CORPUSCULAR HGB 30.4 pG CALC (26.0-32.0); MEAN CORPUSCULAR HGB CONC 32.1 g/L CALC (32.0-36.0); NEUT# 7.47 thou/uL (1.82-7.42); POTASSIUM 4.8 mmol/l (3.5-5.1); RED BLOOD COUNT 2.76 mill/uL (4.70-6.10)
[2019-04-19 08:00] VITALS: BP 173/77
[2019-04-19 15:41] VITALS: BP 187/84
[2019-04-19 21:20] VITALS: BP 151/75
[2019-04-20 04:48] VITALS: BP 129/70
[2019-04-20 05:18] LABS: HEMATOCRIT 25.3 % (39.0-50.0); HEMOGLOBIN 8.2 g/dl (14.0-18.0); IMMATURE GRANULOCYTES 0.4 % (0.0-5.0); MEAN CELL VOLUME 94.1 fL CALC (80.0-100.0); MEAN CORPUSCULAR HGB 30.5 pG CALC (26.0-32.0); MEAN CORPUSCULAR HGB CONC 32.4 g/L CALC (32.0-36.0); NEUT# 6.73 thou/uL (1.82-7.42); RED BLOOD COUNT 2.69 mill/uL (4.70-6.10); RED CELL DISTRI WIDTH 14.1 % (11.5-15.5)
[2019-04-20 05:46] LABS: CREATININE 1.5 mg/dL (0.7-1.3); MAGNESIUM 1.8 mg/dL (1.6-2.3); POTASSIUM 4.9 mmol/l (3.5-5.1)
[2019-04-20 08:00] VITALS: BP 146/61
[2019-04-20] MEDS ORDERED: OXYCONTIN10 MG PO (14:21)
[2019-04-20 14:50] VITALS: BP 158/79
[2019-04-20] MEDS ORDERED: LINEZOLID600 MG PO (17:11)
[2019-06-14] MEDS ORDERED: PAROXETINE20 MG PO (12:08)
== END 2019-04-20 18:00 | disposition home or self-care (01) | DRG 616 ==
LOC: ED 08:51 → ED-I 09:37 → ED 10:59 → MS2 11:00
PROVIDERS: Family Medicine; Internal Medicine Infectious Disease; Nurse Practitioner Family; ADMIT Internal Medicine; ATTEND Internal Medicine
PROC: 02HV33Z Insertion of Infusion Device into Superior Vena Cava, Percutaneous Approach (ICD-10-PCS; principal; 2019-04-11)
PROC: B518ZZA Fluoroscopy of Superior Vena Cava, Guidance (ICD-10-PCS; 2019-04-11)
PROC: 0Y6M0ZF Detachment at Right Foot, Partial 5th Ray, Open Approach (ICD-10-PCS; 2019-04-12)
PROC: 30233N1 Transfusion of Nonautologous Red Blood Cells into Peripheral Vein, Percutaneous Approach (ICD-10-PCS; 2019-04-12)
PROC: 30233N1 Transfusion of Nonautologous Red Blood Cells into Peripheral Vein, Percutaneous Approach (ICD-10-PCS; 2019-04-13)
PROC: 0HXMXZZ Transfer Right Foot Skin, External Approach (ICD-10-PCS; 2019-04-15)
DX: E11.69 Type 2 diabetes mellitus with other specified complication (principal); J18.9 Pneumonia, unspecified organism; M86.171 Other acute osteomyelitis, right ankle and foot; L03.115 Cellulitis of right lower limb; L97.516 Non-pressure chronic ulcer of other part of right foot with bone involvement without evidence of necrosis; I13.0 Hypertensive heart and chronic kidney disease with heart failure and stage 1 through stage 4 chronic kidney disease, or unspecified chronic kidney disease; I50.32 Chronic diastolic (congestive) heart failure; N18.3 Chronic kidney disease, stage 3 (moderate); E11.22 Type 2 diabetes mellitus with diabetic chronic kidney disease; E11.621 Type 2 diabetes mellitus with foot ulcer; N17.9 Acute kidney failure, unspecified; I25.10 Atherosclerotic heart disease of native coronary artery without angina pectoris; E11.42 Type 2 diabetes mellitus with diabetic polyneuropathy; E11.51 Type 2 diabetes mellitus with diabetic peripheral angiopathy without gangrene; E11.65 Type 2 diabetes mellitus with hyperglycemia; E78.5 Hyperlipidemia, unspecified; D64.9 Anemia, unspecified; I44.7 Left bundle-branch block, unspecified; S91.331A Puncture wound without foreign body, right foot, initial encounter; F17.200 Nicotine dependence, unspecified, uncomplicated; T80.89XA Other complications following infusion, transfusion and therapeutic injection, initial encounter; Y84.8 Other medical procedures as the cause of abnormal reaction of the patient, or of later complication, without mention of misadventure at the time of the procedure; I25.2 Old myocardial infarction; B95.62 Methicillin resistant Staphylococcus aureus infection as the cause of diseases classified elsewhere; W26.9XXA Contact with unspecified sharp object(s), initial encounter; Y95 Nosocomial condition; Z79.4 Long term (current) use of insulin; Z88.2 Allergy status to sulfonamides; Z89.422 Acquired absence of other left toe(s); D50.9 Iron deficiency anemia, unspecified
CPT/HCPCS: J2060; J3370; P9016

== ENCOUNTER 2019-05-19 09:29 | Observation (INO) | payer MEDICAID ==
[~2019-05-19] VITALS: Ht 175.3 cm; Wt 97.1 kg
[~2019-05-19 09:29] MED LIST changes: +ACCOLATE10 MG PO; +LINEZOLID600 MG PO; +LIPITOR20 M1 PO; +OXYCONTIN10 MG PO; +TRIGLIDE160 MG PO
--- NOTE | 2019-05-19 09:58 | NUR ---
TO ROOM 9 VIA WHEELCHAIR FOR BEDSIDE TRIAGE
[2019-05-19] MEDS ORDERED: LEVEMIR100 UNIT/M SC (10:25)
--- NOTE | 2019-05-19 10:30 | NUR ---
PT RESTING ON STRETCHER, DENIES ANY NEEDS AT THIS MOMENT. WILL CONTINUE TO MONITOR.
[2019-05-19 10:33] LABS: HEMATOCRIT 29.3 % (39.0-50.0); HEMOGLOBIN 9.3 g/dl (14.0-18.0); IMMATURE GRANULOCYTES 0.6 % (0.0-5.0); MEAN CORPUSCULAR HGB 31.4 pG CALC (26.0-32.0); MEAN CORPUSCULAR HGB CONC 31.7 g/L CALC (32.0-36.0); NEUT# 6.96 thou/uL (1.82-7.42); RED BLOOD COUNT 2.96 mill/uL (4.70-6.10); RED CELL DISTRI WIDTH 16.4 % (11.5-15.5)
[2019-05-19 11:03] LABS: ALBUMIN 3.7 g/dL (3.2-5.0); BILIRUBIN, TOTAL 0.4 mg/dL (0.0-1.4); CREATININE 2.4 mg/dL (0.7-1.3)
[2019-05-19 11:07] LABS: POTASSIUM 5.7 mmol/l (3.5-5.1)
--- NOTE | 2019-05-19 11:30 | NUR ---
PT PRESENTS WITH A WOUND ON THE RIGHT LATERAL FOOT. THE FIFTH DIGIT WAS AMPUTATED AND THE WOUND BECAME INFECTED CREATING AN ULCER. PT STATES TUNNELING REACHED TO THE MID LATERAL FOOT AND AFTER MANY DEBRIDING THAT OCCURED SINCE THREE MONTHS AGO. THERE IS REDNESS AROUND WOUND, WOUND APPEARS DEEP, DRY AND CRUSTED. NO DRAINAGE NOTED. DARK YELLOW AND BROWN TONES. HOT TO THE TOUCH. BRISK CAP REFILL. LUNGS SOUNDS DIMINSHED BILATERALLY IN THE LOWER LOBES AND CLEAR IN THE APEX OF LUNGS. ABDOMEN NON TENDER. PT STATES A PAIN 9/10 IN RIGHT FOOT.
--- NOTE | 2019-05-19 12:20 | NUR ---
REASSESSED AFTER MORPHINE ADMINISTRATION 01/01. PT STATES SHOOTING PAIN THAT IS BEING FELT INTERM,
--- NOTE | 2019-05-19 13:30 | NUR ---
CALLED FOR REPORT TO MED SURG, NO ANSWER
--- NOTE | 2019-05-19 13:40 | NUR ---
CALL ATTEMPTED FOR MED SURG NO ANSWER
--- NOTE | 2019-05-19 14:24 | NUR ---
CALL ATTEMPTED TO MED SURG NO ANSWER
--- NOTE | 2019-05-19 14:45 | NUR ---
PT TRANSPORTED TO MED SURG. NO DISTRESS AND IN STABLE CONDITION. CARE ASSUMED TO IDRIS
[2019-05-19 14:55] VITALS: BP 143/78
--- NOTE | 2019-05-19 16:07 | NUR ---
S: GAMA VELAZCO is a 53 M who presents with foot osteomyelitis, acute worsening of stage 3 CKD, T2DM with foot ulcer. He has a history of DM, arthritis, kidney disease, HTN, PVD, CHF, depression, PA. All medications in patient's chart were reviewed. O: VS: BP 143/78, P 68, RR 20,T 97 W 97.125 kg, HT 69 in, Scr=2.4, CrCl= 40.9 ml/min A: Blood culture is pending. P: Patient is on Cefepime 2 g IV q12h. Vancomycin ordered for pharmacy to dose. Start Vancomycin 1250 mg IV Q24H. Vancomycin trough is drawn before the 4th dose on 05/22/19 at 09:30. Vancomycin goal trough is between 15-20 mcg/ml. Pharmacy will follow and or advise on antibiotics use as needed.
--- NOTE | 2019-05-19 16:35 | NUR ---
ASSESSMENT DONE. PT IS A&O X3. MEDICATED PT WITH OXYCODONE FOR PAIN IN RIGHT FOOT. PICTURES TAKEN OF CHRISTELLE FOOT WOUNDS. RESPS EVEN AND UNLABORED. PO FLUIDS PROVIDED. CALL LIGHT IN REACH.
[2019-05-19 18:30] VITALS: BP 138/85
[2019-05-20 05:04] VITALS: BP 141/79
[2019-05-20 05:14] LABS: HEMATOCRIT 30.6 % (39.0-50.0); HEMOGLOBIN 9.4 g/dl (14.0-18.0); IMMATURE GRANULOCYTES 0.5 % (0.0-5.0); MEAN CORPUSCULAR HGB CONC 30.7 g/L CALC (32.0-36.0); NEUT# 5.4 thou/uL (1.82-7.42); RED BLOOD COUNT 3.03 mill/uL (4.70-6.10); RED CELL DISTRI WIDTH 16.8 % (11.5-15.5)
[2019-05-20 05:41] LABS: CREATININE 2.3 mg/dL (0.7-1.3)
[2019-05-20 05:57] LABS: POTASSIUM 5.7 mmol/l (3.5-5.1)
[2019-05-20 08:00] VITALS: BP 142/77
--- NOTE | 2019-05-20 08:00 | NUR ---
PT IS AWAKE, ALERT, ORIENTED X 3. LUNGS CLEAR, RA. PT IS UP IN ROOM, AMBULATORY. DRESSINGS TO BILATERAL FEET. BM TODAY. NAD.
[2019-05-20 09:13] VITALS: BP 142/77
[2019-05-20] MEDS ORDERED: LINEZOLID600 MG PO (14:07)
[2019-05-20] MEDS ORDERED: VANTIN100 MG PO (14:10)
--- NOTE | 2019-05-20 15:19 | NUR ---
PT HAS BEEN DISCHARGED TO HOME. DR RODRIGUEZ CAME IN, LOOKED AT WOUND, STATED THAT IT DID NOT NEED DEBRIDEMENT. DR KIDD CAME IN LATER, WROTE DISCHARGE PAPERS. PT VERBALIZES UNDERSTANDING OF DC INSTRUCTIONS, TAKEN BY WHEELCHAIR TO LOBBY. PT LEAVES [facility] IN STABLE CONDITION.
--- NOTE | 2019-05-20 15:21 | NUR ---
WOUND CULTURE COLLECTED FROM RIGHT FOOT WOUND PRIOR TO DEPARTURE.
[2019-06-14] MEDS ORDERED: PAROXETINE20 MG PO (12:08)
== END 2019-05-20 15:10 | disposition home or self-care (01) ==
LOC: ED 09:29 → ED-I 11:18 → ED 11:53 → MS2 11:54
PROVIDERS: Family Medicine; Nurse Practitioner Family; ADMIT Internal Medicine; ATTEND Internal Medicine
DX: T87.43 Infection of amputation stump, right lower extremity (principal); T87.81 Dehiscence of amputation stump; E11.22 Type 2 diabetes mellitus with diabetic chronic kidney disease; I13.0 Hypertensive heart and chronic kidney disease with heart failure and stage 1 through stage 4 chronic kidney disease, or unspecified chronic kidney disease; N18.3 Chronic kidney disease, stage 3 (moderate); I50.32 Chronic diastolic (congestive) heart failure; E11.42 Type 2 diabetes mellitus with diabetic polyneuropathy; E11.51 Type 2 diabetes mellitus with diabetic peripheral angiopathy without gangrene; F32.9 Major depressive disorder, single episode, unspecified; I25.2 Old myocardial infarction; F17.200 Nicotine dependence, unspecified, uncomplicated; Y83.6 Removal of other organ (partial) (total) as the cause of abnormal reaction of the patient, or of later complication, without mention of misadventure at the time of the procedure; Z79.4 Long term (current) use of insulin; Z86.14 Personal history of Methicillin resistant Staphylococcus aureus infection; Z89.422 Acquired absence of other left toe(s)
CPT/HCPCS: G0378; J0692; J3370

== ENCOUNTER 2019-06-11 | Emergency (ER) | payer MEDICAID ==
[~2019-06-11] MED LIST changes: +LEVEMIR100 UNIT/M SC; +VANTIN100 MG PO
[2019-06-11 13:43] LABS: HEMATOCRIT 29.6 % (39.0-50.0); HEMOGLOBIN 9.4 g/dl (14.0-18.0); IMMATURE GRANULOCYTES 0.4 % (0.0-5.0); MEAN CELL VOLUME 97.4 fL CALC (80.0-100.0); MEAN CORPUSCULAR HGB 30.9 pG CALC (26.0-32.0); MEAN CORPUSCULAR HGB CONC 31.8 g/L CALC (32.0-36.0); NEUT# 5.24 thou/uL (1.82-7.42); RED BLOOD COUNT 3.04 mill/uL (4.70-6.10); RED CELL DISTRI WIDTH 16.4 % (11.5-15.5)
[2019-06-11] MEDS ORDERED: CLONAZEPAM1 MG PO (14:23)
[2019-06-11] MEDS ORDERED: METOLAZONE5 MG PO (14:24)
[2019-06-11 14:38] LABS: ALBUMIN 3.8 g/dL (3.2-5.0); BILIRUBIN, TOTAL 0.3 mg/dL (0.0-1.4); CREATININE 2.2 mg/dL (0.7-1.3); TOTAL PROTEIN 6.9 g/dL (6.3-8.2)
[2019-06-11 14:52] LABS: POTASSIUM 4.2 mmol/l (3.5-5.1)
[2019-06-11] MEDS ORDERED: LORTAB 1010 MG PO (16:35)
[2019-06-14] MEDS ORDERED: PAROXETINE20 MG PO (12:08)
== END 2019-06-11 16:51 | disposition home or self-care (01) ==
PROVIDERS: Emergency Medicine
DX: N50.89 Other specified disorders of the male genital organs (principal); E11.51 Type 2 diabetes mellitus with diabetic peripheral angiopathy without gangrene; E11.42 Type 2 diabetes mellitus with diabetic polyneuropathy; I11.0 Hypertensive heart disease with heart failure; I50.9 Heart failure, unspecified; F17.200 Nicotine dependence, unspecified, uncomplicated; Z79.4 Long term (current) use of insulin

== ENCOUNTER 2019-06-15 | Inpatient (IN) | payer MEDICAID ==
[2019-06-14 11:21] LABS: HEMATOCRIT 31.6 % (39.0-50.0); HEMOGLOBIN 9.7 g/dl (14.0-18.0); IMMATURE GRANULOCYTES 0.4 % (0.0-5.0); MEAN CELL VOLUME 99.7 fL CALC (80.0-100.0); MEAN CORPUSCULAR HGB 30.6 pG CALC (26.0-32.0); MEAN CORPUSCULAR HGB CONC 30.7 g/L CALC (32.0-36.0); RED BLOOD COUNT 3.17 mill/uL (4.70-6.10); RED CELL DISTRI WIDTH 16.6 % (11.5-15.5)
[2019-06-14 11:46] LABS: D-DIMER 0.7 mg/L (0.19-0.60); INTERNATIONAL NORMALIZED RATIO 1.2 RATIO (0.7-1.3); PROTHROMBIN TIME 12.2 SECONDS (9.0-12.5)
[2019-06-14 12:33] LABS: ALBUMIN 4.1 g/dL (3.2-5.0); BILIRUBIN, TOTAL 0.4 mg/dL (0.0-1.4); CREATININE 2.7 mg/dL (0.7-1.3); POTASSIUM 4.9 mmol/l (3.5-5.1); TOTAL PROTEIN 7.8 g/dL (6.3-8.2)
[2019-06-14 15:00] VITALS: BP 122/67
[2019-06-14 18:40] VITALS: BP 142/65
[2019-06-14 21:25] LABS: URINE BILIRUBIN - DIPSTICK NEGATIVE (NEGATIVE); URINE BLOOD DIPSTICK TRACE-INTACT (NEGATIVE); URINE COLOR YELLOW; URINE GLUCOSE - DIPSTICK NEGATIVE (NEGATIVE); URINE KETONE NEGATIVE (NEGATIVE); URINE LEUK ESTERASE NEGATIVE (NEGATIVE); URINE NITRITE - DIPSTICK NEGATIVE (Negative); URINE PROTEIN - DIPSTICK 100 mg/dL (NEG-TRACE); URINE SPECIFIC GRAVITY >=1.030; URINE UROBILINOGEN - DIPSTICK 0.2 E.U./dL (0.2)
[2019-06-14 21:26] LABS: URINE EPITHELIAL CELLS MODERATE EPI/hpf (0-FEW); URINE RBC 0-2 RBC/hpf (0-5)
[2019-06-14 23:45] VITALS: BP 142/67
[2019-06-15] VITALS (12 sets, daily range): BP systolic 119–186; BP diastolic 53–93
[~2019-06-15] MED LIST changes: +CLONAZEPAM1 MG PO; +LORTAB 1010 MG PO; +METOLAZONE5 MG PO; +PAROXETINE20 MG PO
[2019-06-15 05:24] LABS: HEMATOCRIT 28.4 % (39.0-50.0); HEMOGLOBIN 8.9 g/dl (14.0-18.0); MEAN CELL VOLUME 101.4 fL CALC (80.0-100.0); MEAN CORPUSCULAR HGB 31.8 pG CALC (26.0-32.0); MEAN CORPUSCULAR HGB CONC 31.3 g/L CALC (32.0-36.0); RED BLOOD COUNT 2.8 mill/uL (4.70-6.10); RED CELL DISTRI WIDTH 16.5 % (11.5-15.5)
[2019-06-15 06:02] LABS: CREATININE 2.8 mg/dL (0.7-1.3); POTASSIUM 4.7 mmol/l (3.5-5.1)
== END 2019-06-15 21:40 | DRG 291 ==
PROVIDERS: ADMIT Internal Medicine
PROC: 5A09357 Assistance with Respiratory Ventilation, Less than 24 Consecutive Hours, Continuous Positive Airway Pressure (ICD-10-PCS; principal; 2019-06-15)
DX: I13.0 Hypertensive heart and chronic kidney disease with heart failure and stage 1 through stage 4 chronic kidney disease, or unspecified chronic kidney disease (principal); J96.91 Respiratory failure, unspecified with hypoxia; N17.9 Acute kidney failure, unspecified; J44.1 Chronic obstructive pulmonary disease with (acute) exacerbation; J10.1 Influenza due to other identified influenza virus with other respiratory manifestations; I50.9 Heart failure, unspecified; E11.22 Type 2 diabetes mellitus with diabetic chronic kidney disease; N18.3 Chronic kidney disease, stage 3 (moderate); E11.51 Type 2 diabetes mellitus with diabetic peripheral angiopathy without gangrene; E11.621 Type 2 diabetes mellitus with foot ulcer; L97.529 Non-pressure chronic ulcer of other part of left foot with unspecified severity; L97.519 Non-pressure chronic ulcer of other part of right foot with unspecified severity; E11.65 Type 2 diabetes mellitus with hyperglycemia; E11.40 Type 2 diabetes mellitus with diabetic neuropathy, unspecified; E78.5 Hyperlipidemia, unspecified; E87.5 Hyperkalemia; F17.200 Nicotine dependence, unspecified, uncomplicated; I25.10 Atherosclerotic heart disease of native coronary artery without angina pectoris; I25.2 Old myocardial infarction; Z79.4 Long term (current) use of insulin; Z89.422 Acquired absence of other left toe(s)

== ENCOUNTER 2019-08-14 09:40 | Inpatient (IN) | payer MEDICAID ==
[~2019-08-14] VITALS: Ht 175.3 cm; Wt 89.4 kg
[2019-08-14 10:10] VITALS: BP 126/76
--- NOTE | 2019-08-14 10:10 | NUR ---
PT ARRIVED TO ID AMBULATORY WITH STEADY GAIT OBSERVED. PT ORIENTED TO ROOM. COPY OF MED LIST TAKEN. DRESSINGS IN PLACE BILAT, PER PT HE IS ATTENDING OUTPT WOUND CARE WITH DR. GUTIERREZ. DRESSINGS CDI, PHOTO OF WOUNDS TO BE OBTAINED. PER PT HE HAS HAD 2 TOES AMPUTATED IN THE LT FOOT AND 1 TO AMPUTATED IN THE RT FOOT. PAST HX OF MRSA. DISCUSSED POC. ASSESSMENT COMPLETED. CALL LIGHT IN REACH. CONTINUE TO MONITOR.
[2019-08-14 10:54] LABS: IMMATURE GRANULOCYTES 0.2 % (0.0-5.0); MEAN CORPUSCULAR HGB 30.1 pG CALC (26.0-32.0); MEAN CORPUSCULAR HGB CONC 32.7 g/dL CAL (32.0-36.0); NEUT# 4.75 thou/uL (1.82-7.42); RED BLOOD COUNT 3.75 mill/uL (4.70-6.10); RED CELL DISTRI WIDTH 14.4 % (11.5-15.5)
[2019-08-14 10:58] LABS: HEMATOCRIT 34.6 % (39.0-50.0); HEMOGLOBIN 11.3 g/dl (14.0-18.0); MEAN CELL VOLUME 92.3 fL CALC (80.0-100.0)
[2019-08-14 11:13] LABS: POTASSIUM 3.8 mmol/l (3.5-5.1)
[2019-08-14 11:16] LABS: CREATININE 1.8 mg/dL (0.7-1.3)
--- NOTE | 2019-08-14 13:48 | NUR ---
IV CHIKA INITIATED. PT IN BED SLEEPING. CALL LIGHT IN REACH. CONTINUE TO MONITOR.
--- NOTE | 2019-08-14 14:11 | NUR ---
S: GAMA VELAZCO is a 54 M who presents with OSTEOMYELITIS. He has a history of DM2. All medications in patient's chart were reviewed. O: VS: BP 126/76, P 82, RR 16,T 97.3 W 87kg , HT 69 IN, Scr=1.8 ,CrCl= 55ml/min A: Blood culture is pending Urine culture is pending P: Patient is on ZOSYN 3.375GM Q6H. Vancomycin ordered for pharmacy to dose. Start Vancomycin 1GM IV Q12H. Vancomycin trough is drawn before the 4th dose on .08/16/19 0100 Vancomycin goal trough is between <15-20 mcg/ml>. Pharmacy will follow and or advise on antibiotics use as needed. ANAM BRADEN PHARMD
--- NOTE | 2019-08-14 16:02 | NUR ---
PT VOICED THE NEED OF A NICOTINE PATCH. EXPLAINED TO PT THAT MD WOULD BE NOTIFIED. PT VERBALIZED UNDERSTANDING.
--- NOTE | 2019-08-14 16:05 | NUR ---
ORDERS REC FOR NICOTINE PATCH
[2019-08-14 16:41] VITALS: BP 157/74
--- NOTE | 2019-08-14 19:02 | NUR ---
REPORT FROM NEIL CARDONA. PT NOTED SITTING UP IN BED WATCHING TV. ALERT AND ORIENTED. NO APPARENT DISTRESS NOTED. PT DENIES ANY PAIN OR DISCOMFORT. IV SITE APPEARS HEALTHY. ASSISTANT PARALEGAL IN PLACE. DISCUSSED POC. PT VERBALIZED UNDERSTANDING. SNACK PROVIDED UPON REQUEST. CALL LIGHT WITHIN REACH. WILL CONTINUE TO MONITOR.
[2019-08-14 19:36] VITALS: BP 169/77
--- NOTE | 2019-08-14 21:03 | NUR ---
DRESSINGS REMOVED AND WOUND DOCUMENTATION COMPLETED. DRY DRESSING APPLIED AT THIS TIME. PT TOLERATED WELL. COFFEE PROVIDED UPON REQUEST. CALL LIGHT WITHIN REACH. WILL CONTINUE TO MONITOR.
[2019-08-15] VITALS (7 sets, daily range): BP systolic 126–153; BP diastolic 66–78
--- NOTE | 2019-08-15 00:23 | NUR ---
IV FLUSHED AT THIS TIME. IV ABT INITIATED. PT TOLERATING WELL. DENIES ANY PAIN OR DISCOMFORT. CALL LIGHT WITHIN REACH. WILL CONTINUE TO MONITOR.
--- NOTE | 2019-08-15 04:49 | NUR ---
PT RESTING IN BED WITH EYES CLOSED. NO APPARENT DISTRESS NOTED. CALL LIGHT WITHIN REACH. WILL CONTINUE TO MONITOR.
--- NOTE | 2019-08-15 07:15 | NUR ---
REPORT RECEIVED FROM BRENDAN REILLY;PT RESTING IN SEMI FOWLERS POSITION;INTRODUCED SELF TO PT AND POC DISCUSSED;RESPIRATIONS EVEN AND UNLABORED ON RA;PT DENIES ANY CURRENT PAIN OR NEEDS;TELE MONITORING IN PLACE;ACCUCHECK 71;PT DENIES ANY CURRENT ADDITIONAL NEEDS AT THIS TIME;ENCOURAGED TO CALL FOR ASSISTANCE IF NEEDED;FALL PRECAUTIONS IN PLACE WITH BED IN THE LOWEST POSITION AND CALL LIGHT IN REACH;WILL CONTINUE TO MONITOR
--- NOTE | 2019-08-15 07:50 | NUR ---
OR NOTIFIED OF POSSIBLE SX TOMORROW. SPOKE WITH ORTIZ.
[2019-08-15 08:44] LABS: HEMATOCRIT 31.4 % (39.0-50.0); HEMOGLOBIN 10.4 g/dl (14.0-18.0); MEAN CORPUSCULAR HGB 30.1 pG CALC (26.0-32.0); MEAN CORPUSCULAR HGB CONC 33.1 g/dL CAL (32.0-36.0); RED BLOOD COUNT 3.45 mill/uL (4.70-6.10); RED CELL DISTRI WIDTH 14.3 % (11.5-15.5)
--- NOTE | 2019-08-15 09:00 | NUR ---
PT RESTING AT BEDSIDE,A&O X3;VS OBTAINED AND ASSESSMENT COMPLETED;PT DENIES ANY CURRENT PAIN OR DISCOMFORTS,PAIN SCALE AND REPORTING EDUCATED;RESPIRATIONS EVEN AND UNLABORED ON RA,CLEAR LUNG SOUNDS;ABDOMEN DISTENDED/SOFT ON PALPATION AND ACTIVE IN ALL 4 QUADRANTS;STRONG PEDAL PULSES;DRY DRESSINGS CDI TO BLE;TELE MONITORING IN PLACE;#20G TO RFA FLUSHED AND PATENT,SITE APPEARS HEALTHY;ACCUCHECK 147;PT DENIES ANY ADDITIONAL NEEDS AT THIS TIME AND IS ENCOURAGED TO CALL FOR ASSISTANCE IF NEEDED;FALL PRECAUTIONS IN PLACE WITH CALL LIGHT IN REACH;WILL CONTINUE TO MONITOR
[2019-08-15 09:11] LABS: CREATININE 1.6 mg/dL (0.7-1.3); MAGNESIUM 1.8 mg/dL (1.6-2.3); POTASSIUM 4.1 mmol/l (3.5-5.1)
--- NOTE | 2019-08-15 10:15 | NUR ---
ORTIZOR NOTIFIED THIS WRITTER OF OR PICKUP AT APPROX 0800 TOMORROW 08/16/19 FOR RT FOOT I&D AND RESECTION OF 5TH METATARSAL WITH POSSIBLE WOUND VAC PLACEMENT. AWAITING MD OFFICAL ORDERS.
--- NOTE | 2019-08-15 10:22 | NUR ---
PT TRANSPORTED TO MRI IN STABLE CONDITION VIA WHEELCHAIR ACCOMPANIED BY GENESIS BEAR.
--- NOTE | 2019-08-15 11:05 | NUR ---
PT RETURNED TO MED/SURG ROOM 269 IN STABLE CONDITION VIA WHEELCHAIR ACCOMPANIED BY GENESIS BEAR
--- NOTE | 2019-08-15 11:50 | NUR ---
PT RESTING AT BEDSIDE;RESPIRATIONS REMAIN EVEN AND UNLABORED ON RA;PT DENIES ANY CURRENT PAIN OR NEEDS;TELE MONITORING IN PLACE;IV SITE PATENT AND IV ABX HUNG AT THIS TIME;ACCUCHECK 282;PT DENIES ANY ADDITIONAL NEEDS AND IS ENCOURAGED TO CALL FOR ASSISTANCE IF NEEDED;CALL LIGHT IN REACH;WILL CONTINUE TO MONITOR
--- NOTE | 2019-08-15 12:00 | NUR ---
AT BEDSIDE DISCUSSING POC.
--- NOTE | 2019-08-15 13:25 | NUR ---
PT TRANSPORTED TO [facility] IN STABLE CONDITION VIA WHEELCHAIR ACCOMPANIED BY GENESIS SIERRA
--- NOTE | 2019-08-15 13:34 | NUR ---
PT TRANSPORTED TO [facility] EMERGENCY DEPARTMENT IN STABLE CONDITION VIA WHEELCHAIR ACCOMPANIED BY GENESIS SIERRA.
--- NOTE | 2019-08-15 13:34 | NUR ---
PT RETURNED TO MED/SURG ROOM 269 IN STABLE CONDITION
--- NOTE | 2019-08-15 14:10 | NUR ---
PT RETURNED BACK TO MED/SURG ROOM 269 IN STABLE CONDITION VIA WHEELCHAIR.
--- NOTE | 2019-08-15 15:29 | NUR ---
PT APPEARS TO BE SLEEPING IN SUPINE POSITION;NO S/S OF DISTRESS NOTED;RESPIRATIONS APPEAR EVEN AND UNLABORED ON RA;IV ABX INFUSING WITH EASE PER ORDER AND TELE MONITORING IN PLACE;ALL SAFETY PRECAUTIONS REMAIN IN PLACE WITH BED IN THE LOWEST POSITION AND CALL LIGHT IN REACH;WILL CONTINUE TO MONITOR
[2019-08-15] MEDS ORDERED: FERR SULFATE325 MG PO (16:26)
[2019-08-15] MEDS ORDERED: KLONOPIN0.5 MG PO (16:29)
[2019-08-15] MEDS ORDERED: TOPROL XL50 MG PO (16:30)
[2019-08-15] MEDS ORDERED: TRESIBA FL100 UNIT/M SC (16:34)
--- NOTE | 2019-08-15 19:00 | NUR ---
RECEIEVED REPORT FROM DAY NURSE PATIENT RESTING IN BED WATCHING TV CALL LIGHT AT REACH.
--- NOTE | 2019-08-15 21:00 | NUR ---
PATIENT ALERT ORIENTED, ABLE TO MAKE NEEDS KNOWN, WITH SALINE LOCK ON RFA PATENT FLUSHES WELL, REMAINS ON TELE, LBM 08/14 REINFORCED ON NPO POST MIDNIGHT.
[2019-08-16] VITALS (13 sets, daily range): BP systolic 109–165; BP diastolic 50–79
--- NOTE | 2019-08-16 | NUR ---
REINFORCED NPO AT THIS TIME.
--- NOTE | 2019-08-16 02:14 | NUR ---
VANCO TROUGH DRAWN RESULTED 15, DUE VANCOMYCIN GIVEN AT THIS TIME.
--- NOTE | 2019-08-16 05:16 | NUR ---
DUE ANTIBIOTIC GIVEN AT THIS TIME, DENIES PAIN, CALL LIGHT AT REACH.
[2019-08-16 05:31] LABS: HEMOGLOBIN 10.5 g/dl (14.0-18.0); MEAN CELL VOLUME 92.8 fL CALC (80.0-100.0); MEAN CORPUSCULAR HGB 30.4 pG CALC (26.0-32.0); MEAN CORPUSCULAR HGB CONC 32.8 g/dL CAL (32.0-36.0); RED BLOOD COUNT 3.45 mill/uL (4.70-6.10); RED CELL DISTRI WIDTH 14.5 % (11.5-15.5)
[2019-08-16 05:48] LABS: CREATININE 1.9 mg/dL (0.7-1.3); MAGNESIUM 1.9 mg/dL (1.6-2.3); POTASSIUM 4.2 mmol/l (3.5-5.1)
--- NOTE | 2019-08-16 07:20 | NUR ---
SHIFT CHANGE REPORT, PT SLEEPING BUT AWAKENED TO VERBAL STIMULI, AMBULATED TO BR, OR STAFF HERE TO RECEIVE, TRANSPORTED OFF UNIT VIA STRETCHER TO OR.
--- NOTE | 2019-08-16 11:16 | NUR ---
RETURNED FROM PACU @ 1116 TRANSPORTED VIA STRETCHER BY STAFF AND ASSISTED TO BED, DRESSING TO RIGHT LOWER LEG CDI, DRESSING TO RIGHT FOOT CDI ALSO, NO C/O PAIN AT THIS TIME, IVF INFUSING. BEDSIDE REPORT RECEIVED FROM MAZIN HARPER BEING MONITORED AT THIS TIME.
--- NOTE | 2019-08-16 16:00 | NUR ---
RESTING IN BED, INQUIRED ABOUT MEAL AND STATED THE QUANTITY HE IS BEING GIVEN IS JUST FOR A 2YR CHILD, SNACKS OFFERED, WILL CONTINUE TO MONITOR.
--- NOTE | 2019-08-16 19:00 | NUR ---
RECEIVED REPORT FROM DAY NURSE PATIENT AWAKE AT THIS TIME, C /O PAIN ON SX SITE PS 8/ WILL MEDICATE.
--- NOTE | 2019-08-16 22:00 | NUR ---
PATIENT ALERT ORIENTE ABLE TO MAKE NEEDS KNOWN, WITH SALINE LOCK ON LFA PATENT FLUSHES WELL,REMAINS ON TELE,STATED PAIN RELIEF FROM PAIN MEDICATION GIVEN EARLIER, ON SCD, DRESSING ON BILATERAL FOOT CDI,CALLLIGHT AT REACH.
--- NOTE | 2019-08-17 00:15 | NUR ---
DUE ABX GIVEN AT THIS TIME, PRN PERCOCET GIVEN PS 8/10
[2019-08-17 04:00] VITALS: BP 123/73
--- NOTE | 2019-08-17 04:44 | NUR ---
PATIENT C/O PAIN ON SURGICAL SITE, PRN PERCOCET GIVEN WILL REEVALUATE.
[2019-08-17 05:27] LABS: HEMATOCRIT 28.4 % (39.0-50.0); HEMOGLOBIN 9.1 g/dl (14.0-18.0); MEAN CELL VOLUME 93.7 fL CALC (80.0-100.0); RED BLOOD COUNT 3.03 mill/uL (4.70-6.10); RED CELL DISTRI WIDTH 14.8 % (11.5-15.5)
[2019-08-17 05:42] LABS: CREATININE 2.1 mg/dL (0.7-1.3); MAGNESIUM 1.8 mg/dL (1.6-2.3); POTASSIUM 4.3 mmol/l (3.5-5.1)
[2019-08-17 08:03] VITALS: BP 151/80
--- NOTE | 2019-08-17 08:03 | NUR ---
PT LAYING IN BED. A&O X3. PT COMPLAINS OF SOME LEG PAIN, PER PT " IT FEELS TOO TIGHT" CIRCULATION CHECKED, CAPILLARY REFILL LESS THAN 3 SECS AND PT ABLE TO MOVE TOES WITHOUT A PROBLEM. EXPLAINED TO PT THAT I WAS NOT ABLE TO REMOVE BANDAGES BUT THAT GASTROENTEROLOGY PHYSICIAN WOULD BE NOTIFIED. SCD APPLIED TO LT LEG. PER PT "NO ONE EXPLAINED ANY POST OP THINGS THAT I WAS SUPPOSED TO DO" TOLD PT THAT HE WAS TO BE NWB WITH RT LEG, TO USE BSC, AND URINAL AT BEDSIDE. PT VERBALIZED UNDERSTANDING. NO OTHER NEEDS AT THIS TIME. ASSESSMENT COMPLETED. DISCUSSED POC. CALL LIGHT IN REACH. CONTINUE TO MONITOR.
--- NOTE | 2019-08-17 08:15 | NUR ---
CLERK TELEVISION PRODUCTION AT BEDSIDE. PT VERBALIZED CONCERN ABOUT TIGHTNESS OF DRESSING. CLERK TELEVISION PRODUCTION TO NOTIFY [employer] TO SEE IF NINI BANDAGE COULD BE LOOSENED UP. PT SHOWING SOME AGITATION BUT VERBALIZED UNDERSTANDING.
--- NOTE | 2019-08-17 08:50 | NUR ---
PER PT HE DOES NOT WANT TO REC LEVEMIR AT THIS TIME DUE TO HIM HARDLY EATING BREAKFAST THIS MORNING.
--- NOTE | 2019-08-17 10:20 | NUR ---
PER GEREMIAS PECK, [facility] APPROVED FOR NINI BANDAGE TO BE REMOVED AND LOOSENED UP BEFORE PLACING BACK ON BUT THE DRESSINGS WERE NOT TO BE REMOVED. NINI BANDAGES REMOVED AND PLACED BACK ON LOOSER. PT VERBALIZED THAT HARDLY ANY RELIEF WAS OBTAINED.
[2019-08-17 10:40] VITALS: BP 128/73
--- NOTE | 2019-08-17 12:09 | NUR ---
PT 08/17/19 The patient is provided a stationary walker for use postop. I reviewed NWB principles and he understands no weight bearing on the RLE. He does have diabetic ulcers on the LLE and I encouraged him to stand but limit ambulation as this would put undo pressure on the LLE. Otherwise he is independent with bed mobility, transfers and in room ambulation. His Am Pac score is 18 indicating he would do well going home with home health or even outpatient wound care follow up.
--- NOTE | 2019-08-17 13:26 | NUR ---
TELECONSULT WITH DR RIBEIRO IN PROGRESS
--- NOTE | 2019-08-17 15:12 | NUR ---
IS GIVEN TO PT. INSTRUCTIONS GIVEN ON ITS USED. PT DEMONSTRATED PROPER USE OF DEVICE. IS GOAL SET AT 2000. PT USED DEVICE X10. INSTRUCTIONS GIVEN TO USE DEVICE EVERY HOUR X 10. PT VERBALIZED UNDERSTANDING.
[2019-08-17 15:25] VITALS: BP 160/79
--- NOTE | 2019-08-17 16:19 | NUR ---
PT C/O OF SOB. O2 VIA NC @4L IN PLACE. O2 85% PRIOR TO APPLICATION OF O2. 91% WITH O2 IN PLACE. OPTICAL SALES ASSOCIATE NOTIFIED. PER OPTICAL SALES ASSOCIATE STAT CXR TO BE OBTAINED AND TO CONTINUE MONITORING O2. O2 NC TO STAY IN PLACE.
--- NOTE | 2019-08-17 16:34 | NUR ---
BLOOD SUGAR 81, COKE GIVEN. WILL RECHECK
--- NOTE | 2019-08-17 16:59 | NUR ---
RADIOLOGY AT BEDSIDE TO COMPLETE CXR
[2019-08-17 17:09] VITALS: BP 174/81
--- NOTE | 2019-08-17 17:43 | NUR ---
PER GEREMIAS PECK, HOLD [employer] TONIGHT AND PLACE ORDER FOR PICC LINE FOR TOMORROW DUE TO DR RIBEIRO'S RECCOMENDATIONS
[2019-08-17 18:24] VITALS: BP 141/71
--- NOTE | 2019-08-17 18:25 | NUR ---
BP : 141/71 , HR 81. O2 VIA NC DOWN TO 2L.
--- NOTE | 2019-08-17 18:52 | NUR ---
REPORT RECEIVED FROM BRENDAN TREJO. PT RESTING IN BED, ONE TO ONE SITTER AT BEDSIDE. WILL CONTINUE TO MONITOR.
--- NOTE | 2019-08-17 19:50 | NUR ---
PT RESTING IN BED, ALERT AND ORIENTED. RESPIRATIONS EVEN AND UNLABORED ON RA. LUNGS SOUND CLEAR. DRESSINGS TO LOWER EXTREMITIES CDI. PT REPORTS HAVING PAIN OF A 8/10, PT TO BE MEDICATED PER EMAR ORDERS. PT PROVIDED WITH 2 CUPS OF COFFEE PER REQUEST. SAFETY PRECAUTIONS IN PLACE. WILL CONTINUE TO MONITOR.
[2019-08-18 00:26] VITALS: BP 134/72
--- NOTE | 2019-08-18 01:05 | NUR ---
PT RESTING IN BED. RESPIRATIONS EVEN AND UNLABORED ON AR. NO S/S OF DISTRESS AT THIS TIME. WILL CONTINUE TO MONITOR.
--- NOTE | 2019-08-18 04:13 | NUR ---
PT RESTING IN BED. RESPIRATIONS EVEN AND UNLABORED ON RA. NO S/S OF DISTRESS AT THIS TIME. WILL CONTINUE TO MONITOR.
[2019-08-18 04:57] LABS: HEMOGLOBIN 9.8 g/dl (14.0-18.0); MEAN CELL VOLUME 93.2 fL CALC (80.0-100.0); MEAN CORPUSCULAR HGB 30.4 pG CALC (26.0-32.0); MEAN CORPUSCULAR HGB CONC 32.7 g/dL CAL (32.0-36.0); RED BLOOD COUNT 3.22 mill/uL (4.70-6.10); RED CELL DISTRI WIDTH 14.9 % (11.5-15.5)
[2019-08-18 05:00] VITALS: BP 137/65
[2019-08-18 05:19] LABS: CREATININE 1.9 mg/dL (0.7-1.3); MAGNESIUM 1.6 mg/dL (1.6-2.3); POTASSIUM 3.8 mmol/l (3.5-5.1)
[2019-08-18 05:56] VITALS: BP 138/69
--- NOTE | 2019-08-18 07:34 | NUR ---
SHIFT CHANGE REPORT, PT SLEEPING, DOES NOT SEEM TO BE IN ANY DISTRESS, RIGHT LEG ELEVATED, CALL FREEMAN IN REACH.
[2019-08-18 07:43] VITALS: BP 111/63
[2019-08-18 11:08] VITALS: BP 132/72
[2019-08-18] MEDS ORDERED: PERCOCET 10/31 COMBO PO (11:31)
[2019-08-18] MEDS ORDERED: CEFEPIME1 G2 IV (11:31)
[2019-08-18] MEDS ORDERED: DAPTOMYCIN500 MG IV (11:31)
--- NOTE | 2019-08-18 14:57 | NUR ---
PT WENT OFF UNIT FOR PROCEDURE VIA W/C AND RETURNED WITH PICC IN PLACE TO [facility].
--- NOTE | 2019-08-18 15:14 | NUR ---
Discharge instructions given. Patient verbalizes understanding of same. Discharged in stable condition via Wheelchair to Home with family. All belongings sent with pt.
== END 2019-08-18 15:15 | DRG 623 ==
LOC: MS2 09:40
PROVIDERS: Nurse Practitioner Family; ADMIT Internal Medicine; ATTEND Internal Medicine
PROC: 0QBN0ZZ Excision of Right Metatarsal, Open Approach (ICD-10-PCS; principal; 2019-08-16)
PROC: 0HXMXZZ Transfer Right Foot Skin, External Approach (ICD-10-PCS; 2019-08-16)
PROC: 0L8N3ZZ Division of Right Lower Leg Tendon, Percutaneous Approach (ICD-10-PCS; 2019-08-16)
PROC: 0JBQ0ZZ Excision of Right Foot Subcutaneous Tissue and Fascia, Open Approach (ICD-10-PCS; 2019-08-16)
PROC: 02HV33Z Insertion of Infusion Device into Superior Vena Cava, Percutaneous Approach (ICD-10-PCS; 2019-08-18)
PROC: B518ZZA Fluoroscopy of Superior Vena Cava, Guidance (ICD-10-PCS; 2019-08-18)
DX: E11.69 Type 2 diabetes mellitus with other specified complication (principal); M86.171 Other acute osteomyelitis, right ankle and foot; L97.419 Non-pressure chronic ulcer of right heel and midfoot with unspecified severity; L97.429 Non-pressure chronic ulcer of left heel and midfoot with unspecified severity; I13.0 Hypertensive heart and chronic kidney disease with heart failure and stage 1 through stage 4 chronic kidney disease, or unspecified chronic kidney disease; I50.32 Chronic diastolic (congestive) heart failure; L03.115 Cellulitis of right lower limb; E11.22 Type 2 diabetes mellitus with diabetic chronic kidney disease; E11.51 Type 2 diabetes mellitus with diabetic peripheral angiopathy without gangrene; N18.3 Chronic kidney disease, stage 3 (moderate); E11.621 Type 2 diabetes mellitus with foot ulcer; E11.42 Type 2 diabetes mellitus with diabetic polyneuropathy; E11.65 Type 2 diabetes mellitus with hyperglycemia; E78.5 Hyperlipidemia, unspecified; D63.8 Anemia in other chronic diseases classified elsewhere; I45.10 Unspecified right bundle-branch block; I25.2 Old myocardial infarction; F17.210 Nicotine dependence, cigarettes, uncomplicated; Z79.4 Long term (current) use of insulin; Z89.432 Acquired absence of left foot; Z86.14 Personal history of Methicillin resistant Staphylococcus aureus infection; Z95.820 Peripheral vascular angioplasty status with implants and grafts; Z89.431 Acquired absence of right foot
CPT/HCPCS: J0692; J3370; Q3014

== ENCOUNTER 2019-09-01 | Emergency (ER) | payer MEDICAID ==
[~2019-09-01] MED LIST changes: +CEFEPIME1 G2 IV; +DAPTOMYCIN500 MG IV; +FERR SULFATE325 MG PO; +KLONOPIN0.5 MG PO; +PERCOCET 10/31 COMBO PO; +TOPROL XL50 MG PO; +TRESIBA FL100 UNIT/M SC
[2019-09-01 14:13] LABS: IMMATURE GRANULOCYTES 0.4 % (0.0-5.0); MEAN CELL VOLUME 90.9 fL CALC (80.0-100.0); MEAN CORPUSCULAR HGB 30.4 pG CALC (26.0-32.0); MEAN CORPUSCULAR HGB CONC 33.4 g/dL CAL (32.0-36.0); NEUT# 5.65 thou/uL (1.82-7.42); RED BLOOD COUNT 3.39 mill/uL (4.70-6.10); RED CELL DISTRI WIDTH 15.4 % (11.5-15.5)
[2019-09-01 14:18] LABS: HEMATOCRIT 30.8 % (39.0-50.0)
[2019-09-01 14:22] LABS: HEMOGLOBIN 10.3 g/dl (14.0-18.0)
== END 2019-09-01 14:54 | disposition home or self-care (01) ==
DX: D64.9 Anemia, unspecified (principal); I25.10 Atherosclerotic heart disease of native coronary artery without angina pectoris; I11.0 Hypertensive heart disease with heart failure; I50.9 Heart failure, unspecified; E11.42 Type 2 diabetes mellitus with diabetic polyneuropathy; F17.210 Nicotine dependence, cigarettes, uncomplicated; I25.2 Old myocardial infarction; Z79.4 Long term (current) use of insulin; Z89.431 Acquired absence of right foot; M86.9 Osteomyelitis, unspecified

== ENCOUNTER 2020-02-28 08:17 | Inpatient (IN) | payer MEDICAID ==
[~2020-02-28] VITALS: Ht 175.3 cm; Wt 97.3 kg
[2020-02-28] VITALS (15 sets, daily range): BP systolic 166–209; BP diastolic 69–113
[2020-02-28 08:45] LABS: IMMATURE GRANULOCYTES 0.3 % (0.0-5.0); MEAN CORPUSCULAR HGB CONC 34.5 g/dL CAL (32.0-36.0); NEUT# 9.22 thou/uL (1.82-7.42); RED BLOOD COUNT 3.18 mill/uL (4.70-6.10); RED CELL DISTRI WIDTH 13.9 % (11.5-15.5)
[2020-02-28 08:47] LABS: HEMATOCRIT 30.4 % (39.0-50.0); HEMOGLOBIN 10.5 g/dl (14.0-18.0); MEAN CELL VOLUME 95.6 fL CALC (80.0-100.0)
[2020-02-28 08:57] LABS: ALBUMIN 4.1 g/dL (3.2-5.0); BILIRUBIN, TOTAL 0.4 mg/dL (0.0-1.4)
[2020-02-28 08:58] LABS: POTASSIUM 5.3 mmol/l (3.5-5.1)
[2020-02-28 09:06] LABS: PROTHROMBIN TIME 10.4 SECONDS (9.0-12.5)
[2020-02-28] MEDS ORDERED: LYRICA150 MG PO (09:17)
[2020-02-28] MEDS ORDERED: LASIX 80 MG TAB80 MG PO (09:20)
[2020-02-28] MEDS ORDERED: LISINOPRIL20 M1 PO (09:21)
[2020-02-28] MEDS ORDERED: ATORVASTATIN CA40 MG PO (09:24)
[2020-02-28] MEDS ORDERED: CLOPIDOGREL75 MG PO (09:25)
[2020-02-28] MEDS ORDERED: COQ1030 MG PO (09:27)
[2020-02-28 11:08] LABS: C-REACTIVE PROTEIN 2.3 mg/dL (0-0.9)
[2020-02-28 11:08] LABS: URINE BILIRUBIN - DIPSTICK NEGATIVE (NEGATIVE); URINE BLOOD DIPSTICK SMALL (NEGATIVE); URINE COLOR YELLOW; URINE GLUCOSE - DIPSTICK NEGATIVE (NEGATIVE); URINE KETONE NEGATIVE (NEGATIVE); URINE LEUK ESTERASE NEGATIVE (NEGATIVE); URINE NITRITE - DIPSTICK NEGATIVE (Negative); URINE PH 5.5 (4.5-8.0); URINE PROTEIN - DIPSTICK 100 mg/dL (NEG-TRACE); URINE UROBILINOGEN - DIPSTICK 0.2 E.U./dL (0.2)
[2020-02-28 11:10] LABS: URINE EPITHELIAL CELLS FEW EPI/hpf (0-FEW); URINE MUCUS MODERATE hpf (NONE-FEW); URINE RBC 0-2 RBC/hpf (0-5)
[2020-02-29] VITALS (17 sets, daily range): BP systolic 108–232; BP diastolic 23–103
[2020-02-29 05:09] LABS: HEMOGLOBIN 10.6 g/dl (14.0-18.0); IMMATURE GRANULOCYTES 0.5 % (0.0-5.0); MEAN CELL VOLUME 95.4 fL CALC (80.0-100.0); MEAN CORPUSCULAR HGB 32.6 pG CALC (26.0-32.0); MEAN CORPUSCULAR HGB CONC 34.2 g/dL CAL (32.0-36.0); NEUT# 14.78 thou/uL (1.82-7.42); RED BLOOD COUNT 3.25 mill/uL (4.70-6.10); RED CELL DISTRI WIDTH 14.1 % (11.5-15.5)
[2020-02-29 05:35] LABS: ALBUMIN 3.9 g/dL (3.2-5.0); BILIRUBIN, TOTAL 0.4 mg/dL (0.0-1.4); C-REACTIVE PROTEIN 6.3 mg/dL (0-0.9); CHOLESTEROL HDL RATIO 6.5 (<4.4 (CALC)); CREATININE 1.5 mg/dL (0.7-1.3); TOTAL PROTEIN 6.9 g/dL (6.3-8.2)
[2020-02-29 05:55] LABS: POTASSIUM 5.3 mmol/l (3.5-5.1)
[2020-02-29 05:56] LABS: MAGNESIUM 2.2 mg/dL (1.6-2.3)
[2020-03-01] VITALS (23 sets, daily range): BP systolic 132–205; BP diastolic 62–85
[2020-03-01 06:42] LABS: HEMATOCRIT 26.1 % (39.0-50.0); HEMOGLOBIN 8.7 g/dl (14.0-18.0); IMMATURE GRANULOCYTES 0.6 % (0.0-5.0); MEAN CELL VOLUME 99.2 fL CALC (80.0-100.0); MEAN CORPUSCULAR HGB 33.1 pG CALC (26.0-32.0); MEAN CORPUSCULAR HGB CONC 33.3 g/dL CAL (32.0-36.0); NEUT# 10.9 thou/uL (1.82-7.42); RED BLOOD COUNT 2.63 mill/uL (4.70-6.10); RED CELL DISTRI WIDTH 14.6 % (11.5-15.5)
[2020-03-01 06:53] LABS: ALBUMIN 3.2 g/dL (3.2-5.0); CREATININE 1.5 mg/dL (0.7-1.3); POTASSIUM 4.8 mmol/l (3.5-5.1); TOTAL PROTEIN 5.8 g/dL (6.3-8.2)
[2020-03-01 07:11] LABS: BILIRUBIN, TOTAL 0.7 mg/dL (0.0-1.4); C-REACTIVE PROTEIN 19.4 mg/dL (0-0.9)
[2020-03-02] VITALS (62 sets, daily range): BP systolic 107–206; BP diastolic 60–98
[2020-03-02 05:16] LABS: HEMATOCRIT 26.6 % (39.0-50.0); HEMOGLOBIN 8.8 g/dl (14.0-18.0); IMMATURE GRANULOCYTES 1.1 % (0.0-5.0); MEAN CELL VOLUME 97.8 fL CALC (80.0-100.0); MEAN CORPUSCULAR HGB 32.4 pG CALC (26.0-32.0); MEAN CORPUSCULAR HGB CONC 33.1 g/dL CAL (32.0-36.0); NEUT# 19.04 thou/uL (1.82-7.42); RED BLOOD COUNT 2.72 mill/uL (4.70-6.10); RED CELL DISTRI WIDTH 14.2 % (11.5-15.5)
[2020-03-02 05:42] LABS: ALBUMIN 3.5 g/dL (3.2-5.0); BILIRUBIN, TOTAL 0.5 mg/dL (0.0-1.4); CREATININE 1.8 mg/dL (0.7-1.3); TOTAL PROTEIN 6.3 g/dL (6.3-8.2)
[2020-03-02 06:20] LABS: C-REACTIVE PROTEIN 22.5 mg/dL (0-0.9); POTASSIUM 5.2 mmol/l (3.5-5.1)
[2020-03-03] VITALS (54 sets, daily range): BP systolic 69–202; BP diastolic 48–86
[2020-03-03 06:02] LABS: ALBUMIN 3.1 g/dL (3.2-5.0); CREATININE 1.7 mg/dL (0.7-1.3); POTASSIUM 4.6 mmol/l (3.5-5.1)
[2020-03-03 11:29] LABS: HEMATOCRIT 23.3 % (39.0-50.0); HEMOGLOBIN 7.7 g/dl (14.0-18.0); IMMATURE GRANULOCYTES 0.8 % (0.0-5.0); MEAN CELL VOLUME 98.7 fL CALC (80.0-100.0); MEAN CORPUSCULAR HGB 32.6 pG CALC (26.0-32.0); NEUT# 14.25 thou/uL (1.82-7.42); RED BLOOD COUNT 2.36 mill/uL (4.70-6.10); RED CELL DISTRI WIDTH 14.5 % (11.5-15.5)
[2020-03-03 11:58] LABS: POTASSIUM 4.6 mmol/l (3.5-5.1)
== END 2020-03-03 14:22 | disposition short-term general hospital (02) | DRG 193 ==
LOC: ED 08:17 → ED-I 10:45 → ED 10:57 → ICU 10:58
PROVIDERS: Internal Medicine; Internal Medicine Nephrology; Nurse Practitioner; Student in an Organized Health Care Education/Training Program; ADMIT Internal Medicine; ATTEND Internal Medicine
PROC: 5A09357 Assistance with Respiratory Ventilation, Less than 24 Consecutive Hours, Continuous Positive Airway Pressure (ICD-10-PCS; 2020-03-02)
PROC: 30233N1 Transfusion of Nonautologous Red Blood Cells into Peripheral Vein, Percutaneous Approach (ICD-10-PCS; principal; 2020-03-03)
PROC: 0T9B70Z Drainage of Bladder with Drainage Device, Via Natural or Artificial Opening (ICD-10-PCS; 2020-03-03)
PROC: 05H533Z Insertion of Infusion Device into Right Subclavian Vein, Percutaneous Approach (ICD-10-PCS; 2020-03-03)
DX: J15.9 Unspecified bacterial pneumonia (principal); J96.01 Acute respiratory failure with hypoxia; I13.0 Hypertensive heart and chronic kidney disease with heart failure and stage 1 through stage 4 chronic kidney disease, or unspecified chronic kidney disease; I50.32 Chronic diastolic (congestive) heart failure; N17.9 Acute kidney failure, unspecified; E87.1 Hypo-osmolality and hyponatremia; E87.2 Acidosis; E11.22 Type 2 diabetes mellitus with diabetic chronic kidney disease; N18.30 Chronic kidney disease, stage 3 unspecified; E11.42 Type 2 diabetes mellitus with diabetic polyneuropathy; E11.51 Type 2 diabetes mellitus with diabetic peripheral angiopathy without gangrene; E11.65 Type 2 diabetes mellitus with hyperglycemia; E78.5 Hyperlipidemia, unspecified; R91.1 Solitary pulmonary nodule; E86.9 Volume depletion, unspecified; D63.1 Anemia in chronic kidney disease; E87.5 Hyperkalemia; R19.5 Other fecal abnormalities; I25.2 Old myocardial infarction; F17.210 Nicotine dependence, cigarettes, uncomplicated; Z79.4 Long term (current) use of insulin; Z20.828 Contact with and (suspected) exposure to other viral communicable diseases
CPT/HCPCS: J0692; J1756; P9016

== ENCOUNTER 2020-03-19 15:51 | Inpatient (IN) | payer MEDICAID ==
[2020-03-19] VITALS (7 sets, daily range): BP systolic 129–156; BP diastolic 62–72
[~2020-03-19] VITALS: Ht 175.3 cm; Wt 97.3 kg
[~2020-03-19 15:51] MED LIST changes: +CLOPIDOGREL75 MG PO; +COQ1030 MG PO; +LASIX 80 MG TAB80 MG PO; +LYRICA150 MG PO
--- NOTE | 2020-03-19 15:51 | NUR ---
pt to room 9 via wheelchair for increased sob and swelling. bedside triage completed.
[2020-03-19 16:36] LABS: HEMATOCRIT 27.3 % (39.0-50.0); HEMOGLOBIN 8.6 g/dl (14.0-18.0); IMMATURE GRANULOCYTES 0.4 % (0.0-5.0); MEAN CELL VOLUME 101.5 fL CALC (80.0-100.0); MEAN CORPUSCULAR HGB CONC 31.5 g/dL CAL (32.0-36.0); NEUT# 7.76 thou/uL (1.82-7.42); RED BLOOD COUNT 2.69 mill/uL (4.70-6.10); RED CELL DISTRI WIDTH 16.4 % (11.5-15.5)
[2020-03-19] MEDS ORDERED: LASIX 40 MG TAB40 MG PO (16:39)
[2020-03-19] MEDS ORDERED: PANTOPRAZOLE SO40 M1 PO (16:40)
[2020-03-19] MEDS ORDERED: PAROXETINE20 MG PO (16:42)
[2020-03-19] MEDS ORDERED: NIFEDIPINE30 MG PO (16:43)
[2020-03-19 16:48] LABS: ALBUMIN 3.6 g/dL (3.2-5.0); BILIRUBIN, TOTAL 0.5 mg/dL (0.0-1.4); CREATININE 2.4 mg/dL (0.7-1.3); TOTAL PROTEIN 6.4 g/dL (6.3-8.2)
--- NOTE | 2020-03-19 17:00 | NUR ---
PT RESTING COMFORTABLY ON STRETCHER. PLACED ON O2 2L NC FOR DECREASED O2 SATS. OTHERWISE VSS. NO DISTRESS. CALL LIGHT IN REACH. WILL CONTINUE TO MONITOR.
[2020-03-19 17:03] LABS: POTASSIUM 6.3 mmol/l (3.5-5.1)
--- NOTE | 2020-03-19 17:54 | NUR ---
PT RESTING ON STRETCHER. RESP ARE EVEN AND UNLABORED. NO DISTRESS NOTED. CALL LIGHT IN REACH. WILL CONTINUE TO MONITOR.
--- NOTE | 2020-03-19 18:15 | NUR ---
O2 INCREASED TO 4L NASAL CANNULA FOR O2 SAT 89%
--- NOTE | 2020-03-19 18:40 | NUR ---
PT SATTING 85% ON 4L NASAL CANNULA. PT STATES THAT HE IS SOB. NO DISTRESS NOTED. RESP REMAIN EVEN AND UNLABORED. DR KIDD NOTIFIED ORDERS FOR PT TO TRANSFER TO ICU. DR TAM NOTIFIED ORDERS RECEIVED FOR BIPAP. RT NOTIFIED.
--- NOTE | 2020-03-19 18:58 | NUR ---
RECEIVED REPORT FROM STEFANIE CHADWICK PT BEING PLACED ON BIPAP FOR SAT LOW 84 ON 4L 02
--- NOTE | 2020-03-19 19:11 | NUR ---
DR KIDD UPDATED ON PT STATUS. AWAITING ORDERS.
--- NOTE | 2020-03-19 19:45 | NUR ---
PT TRANSPORTED TO ICU BY STEFANIE MOREIRA ROLLER LEVELER OPERATOR AND RT GERRY
--- NOTE | 2020-03-19 19:50 | NUR ---
PATIENT ARRIVES VIA STRETCHER ON 6 L.MIN NC, ACCOMPANIED BY WEB UI DESIGNER HARISH. PATIENT WAS PLACED ON 8 L/MIN HIGH FLOW NC H. PATIENT'S O2 SATS WERE BETWEEN 93%-94%. PATIENT DOES BECOME SOB WITH EXERTION. PATIENT WAS ABLE TO WALK TO BED WITHOUT DIFFICULTY. PATIENT COMPLAINS OF SOB AND PRESSURE ON HIS CHEST WHICH HE HAS HAD SINCE HE CAME IN THROUGH THE ER, PT REPORTS HE SAW HIS DOCTOR AND SHE TOLD HIM TO COME IN TO ER BECAUSE HIS LEGS WERE SWOLLEN AND HE WAS "BLOATED." NURSE ASSESSMENT PERFORMED. PT REQUESTED SOMETHING TO EAT AND DRINK, WAS PROVIDED. PT ABLE TO ANSWER ADMISSION QUESTIONS. PATIENT HAS A BAG OF MEDICATIONS WHICH WILL BE VERIFIED. AFEBRILE. SR ON TELEMETRY. REPORTS HE DOES WANT THE PNA VACCINE, REPORTS HE WAS JUST AT [facility] FOR PNA, WAS BEING SEEN BY HOME HEALTH NURSES, DOES NOT REMEMBER NAME OF AGENCY. REPORTS HE FALLS FREQUENTLY BECAUSE HE LOSES HIS BALANCE AND HAS TOE AMPUTATIONS. SMOKES 1 PACK PER DAY, REQUESTS NICOTINE PATCH. RAC IV INTACT, FLUSHES PROPERLY, SALINE LOCKED. POC DISCUSSED WITH PATIENT. ALSO NOTIFIED HIM HE NEEDS TO WATCH HIS WATER INTAKE. CALL LIGHT WITHIN REACH. SELF REPOSITIONS. WILL CONTINUE TO MONITOR.
--- NOTE | 2020-03-19 20:21 | NUR ---
PT SITS UP ON SIDE OF BED TO EAT HIS TURKEY DINNER. LAB AT BEDSIDE TO DRAW BLOOD. PT DESATS TO 88% AT TIMES WHEN HE IS EATING. OTHER JUAREZ HE IS 93%-94% ON 8 L/MIN HIGH FLOW NC.
--- NOTE | 2020-03-19 21:00 | NUR ---
PATIENT ABLE TO SWALLOW BEDTIME MEDICAIONS AND TOLERATED INSULIN INJECTIONS ON BACK OF ALESSIA. MILD SOB NOTED WITH EXERTION. PT WAS ALSO NOTIFIED I HAVE NOTIFIED DR KIDD FOR PT REQUEST FOR NICOTINE PATCH.
[2020-03-19 21:10] LABS: CREATININE 2.5 mg/dL (0.7-1.3)
[2020-03-19 21:11] LABS: POTASSIUM 5.8 mmol/l (3.5-5.1)
--- NOTE | 2020-03-19 21:41 | NUR ---
PATIENT'S 02 NOW 87%, PATIENT WAS ASKED IF HE WOULD LIKE TO BE PLACED ON BIPAP, HE STATES, "NO, I FEEL GOOD." RT WAS NOTIFIED.
--- NOTE | 2020-03-19 21:50 | NUR ---
PATIENT ON BIPAP NOW.
--- NOTE | 2020-03-19 21:54 | NUR ---
02 SAT IS 92% ON BIPAP. PT IN NO ACUTE DISTRESS.
--- NOTE | 2020-03-19 23:56 | NUR ---
PATIENT REQUESTS TO HAVE BIPAP TAKEN OFF, HE REPORTS HE NEEDS A BREAK FROM IT. PATIENT PLACED BACK ON 9 L/MIN N HIGH FLOW NC. NO SOB NOTED. PT WAS ALSO BLADDER SCANNED, SCANNER READ 568 ML OF URINE. I ASKED PATIENT IF HE COULD GET UP TO VOID, HE REPORTS HE DOES "NOT HAVE THE URGE TO PEE." I EXPLAINED ABOUT PLACING A CATHETER FOR ACCURATE URINE MEASUREMENTS ESPECIALLY IF HE IS ON LASIX IV. PATIENT AGREES.
[2020-03-20] VITALS (22 sets, daily range): BP systolic 135–193; BP diastolic 58–87
--- NOTE | 2020-03-20 00:21 | NUR ---
PT ABLE TO TOLERATE GALVEZ CATHETER INSERTION. DARK YELLOW, CLOUDY URINE NOTED.
--- NOTE | 2020-03-20 00:25 | NUR ---
PATIENT REQUESTED A SNACK AND RICHARD NAY. PROVIDED.
--- NOTE | 2020-03-20 06:50 | NUR ---
REPORT RECEIVED FROM STEFANIE PAUL. PT RESTING IN BED. NO S/S OD DISTRESS AT THIS TIME. SAFETY PRECAUTIONS IN PLACE. WILL CONTINUE TO MONITOR.
--- NOTE | 2020-03-20 08:30 | NUR ---
PT UP TO THE BSC, PT DENIES NEEDING ANY ASSISTANCE AT THIS TIME.
--- NOTE | 2020-03-20 09:10 | NUR ---
PT RESTING IN BED, ALERT AND ORIENTED. RESPIRATIONS ARE EVEN AND UNLABORED ON O2 @ 8L VIA HIGH FLOW NC. PEDAL PULSES ARE WEAK. PT DENIES ANY PAIN OR DISCOMFORT AT THIS TIME. GALVEZ IN PLACE, DRAINING TO GRAVITY. #20 RAC APPEARS HEALTHY. SAFETY PRECAUTIONS IN PLACE. WILL CONTINUE TO MONITOR.
--- NOTE | 2020-03-20 11:30 | NUR ---
DR. MCINTOSH NOTIFIED OF CONSULT.
--- NOTE | 2020-03-20 13:42 | NUR ---
URINE SPECIMEN COLLECTED PER ORDERS FROM DR. MCINTOSH AND SENT TO LAB. SPO2 100% ON 8L VIA NC; TITRATED OXYGEN DOWN TO 5L. PT AWAKE AND ALERT, BUT DOES C/O TIREDNESS; ALSO REQUETS A SNACK. VSS. WARM WASH CLOTH PROVIDED AND PT PERFORMED GALVEZ CARE INDEPENDENTLY. CALL LIGHT WITHIN REACH.
[2020-03-20 13:57] LABS: URINE BILIRUBIN - DIPSTICK NEGATIVE (NEGATIVE); URINE BLOOD DIPSTICK SMALL (NEGATIVE); URINE COLOR YELLOW; URINE GLUCOSE - DIPSTICK NEGATIVE (NEGATIVE); URINE KETONE NEGATIVE (NEGATIVE); URINE LEUK ESTERASE NEGATIVE (Negative); URINE NITRITE - DIPSTICK NEGATIVE (Negative); URINE PROTEIN - DIPSTICK 30 mg/dL (NEG-TRACE); URINE SPECIFIC GRAVITY 1.025; URINE UROBILINOGEN - DIPSTICK 0.2 E.U./dL (0.2)
[2020-03-20 14:05] LABS: URINE CLARITY SL CLOUDY; URINE EPITHELIAL CELLS FEW EPI/hpf (0-FEW); URINE RBC 0-2 RBC/hpf (0-5)
--- NOTE | 2020-03-20 14:12 | NUR ---
OXYGEN AGAIN TITRATED DOWN TO 3L AND THEN TO 2L; HIGH FLOW REPLACED WITH NORMAL NASAL CANNULA. PT BREATHING WELL; DENIES SOB; RESPIRATIONS EVEN AND UNLABORED. SPO2 97-99% ON 2L; WILL CONTINUE TO MONITOR. LUNG BASES ARE DIMINISHED IN BASES WITH RHONCHI TO UPPER LOBES; CLEAR ANTERIORLY. ABDOMEN DISTENDED AND BLOATED WIT TENDERNESS; PT HAD SMALL HARD DARK BROWN BM. LOWER EXTREMITIES REMAIN SWOLLEN; ELEVATED ON PILLOWS. MULTIPLE SCRAPES TO RLE AND RLE IS LARGER THAN LEFT WITH 4+ PITTING EDEMA; LLE ALSO WITH 4+ PITTING EDEMA WITH LESS SCRAPES AND SMALLER THAN RIGHT. HARD CALLUSED HEELS. NO OPEN AREAS TO FEET. PT REQUESTING SOMETHING TO DRINK; EDUCUATED ON FLUID RESTRICTION. SAFETY MEASURES IN PLACE. CALL LIGHT WITHIN REACH.
--- NOTE | 2020-03-20 17:00 | NUR ---
OXYGEN REMOVED AND PT NOW ON ROOM AIR AND TOLERATING WELL; SPO2 94-96%. ACCU CHECK 343 AND 4 UNITS GIVEN. UP TO BEDSIDE CHAIR AND LINENS CHANGED. GALVEZ CATHETER DRAINING YELLOW SLIGHTLY CLOUDY URINE WITH LARGE AMOUNTS. IV SITE APPEARS HEALTHY AND FLUSHES. CALL LIGHT WITHIN REACH.
--- NOTE | 2020-03-20 17:56 | NUR ---
PT REMAINS UP IN CHAIR FOR DINNER. TALKING ON PHONE TO GIRLFRIEND. ONLY REQUEST AT THIS TIME IS COFFEE WITH HIS DINNER.
--- NOTE | 2020-03-20 19:13 | NUR ---
PATIENT LAYS IN MORAN'S POSITION. NO ACUTE DISTRESS SHOWN. O2 SAT 93% ON ROOM AIR, NO SOB NOTED RESTING. CALL LIGHT WITHIN REACH.
--- NOTE | 2020-03-20 19:25 | NUR ---
NURSE ASSESSMENT PERFORMED. PATIENT SITS IN MORAN'S POSITION, NO ACUTE DISTRESS SHOWN. WHEN I WALK IN THE ROOM HE REQUESTS A SNACK. I EXPLAINED POC FOR TONIGHT, EXPLAINED WE WILL BE CHECKING HIS BLOOD SUGAR AND PROVIDING INSULIN TONIGHT, PT BECOMES UPSET AND STATES," JUST GIVE ME MY INSULIN, THE HOSPITAL INSULIN DOES NOT WORK." I NOTIFIED PATIENT IT IS A CONCERN HE CAN TALK TO THE DOCTOR ABOUT, PT REPORTS HE TALKED TO THE DOCTOR ABOUT IT TODAY ALREADY. PT DEMANDS FOR ME TO CHECK HIS BLOOD SUGAR SO HE CAN HAVE A SNACK, I EXPLAINED IT WILL BE CHECKED SOON IT IS POSSIBLE. PT IS ON RA, O2 SAT 93%, NO SOB NOTED. RAC 20 G IV INTACT, FLUSHES PROPERLY, SALINE LOCKED. GALVEZ CATHETER INTACT. SELF REPOSITIONS. CALL LIGHT WITHIN REACH.
--- NOTE | 2020-03-20 20:23 | NUR ---
PATIENT ABLE TO SWALLOW HIS BEDTIME MEDICATIONS, ABLE TO TOLERATE HIS INSULIN INJECTIONS. SNACK AND DIET DRINK PROVIDED. PATIENT ASKS WHY HE IS ONLY GETTING TWO OF HIS BEDTIME MEDICATIONS, HE ALSO EXCLAIMS THAT IS WHY HE BROUGHT HIS MEDICATIONS IN, I EXPLAINED TO PATIENT THE DOCTOR HAS STARTED SOME OF HIS MEDICATIONS AND THEY ARE ALSO WATCHING HIS KIDNEY FUNCTION WELL, SOME MEDICATIONS CAN AFFECT HIS KIDNEY FUNCTION. NO OTHER NEEDS OR COMPLAINTS AT THIS TIME. CALL LIGHT WITHIN REACH.
[2020-03-21] VITALS (14 sets, daily range): BP systolic 106–187; BP diastolic 59–85
--- NOTE | 2020-03-21 00:04 | NUR ---
PATIENT RESTS WITH EYES CLOSED. NO ACUTE DISTRESS SHOWN. CONTINUES TO BE ON RA, O2 SATS 94%. CALL LIGHT WITHIN REACH.
--- NOTE | 2020-03-21 04:50 | NUR ---
HYDRAULIC JACK OPERATOR IN ROOM FOR AM BLOOD WORK. PT IN NO ACUTE DISTRESS.
[2020-03-21 05:08] LABS: HEMATOCRIT 27.9 % (39.0-50.0); HEMOGLOBIN 8.8 g/dl (14.0-18.0); IMMATURE GRANULOCYTES 0.3 % (0.0-5.0); MEAN CELL VOLUME 101.5 fL CALC (80.0-100.0); MEAN CORPUSCULAR HGB CONC 31.5 g/dL CAL (32.0-36.0); NEUT# 4.24 thou/uL (1.82-7.42); RED BLOOD COUNT 2.75 mill/uL (4.70-6.10); RED CELL DISTRI WIDTH 15.9 % (11.5-15.5)
[2020-03-21 05:29] LABS: ALBUMIN 3.5 g/dL (3.2-5.0); CREATININE 1.6 mg/dL (0.7-1.3); MAGNESIUM 1.8 mg/dL (1.6-2.3); POTASSIUM 4.9 mmol/l (3.5-5.1)
--- NOTE | 2020-03-21 09:00 | NUR ---
PT SEEN AWAKE, ALERT, ORIENTED X 3. BILATERAL LEGS ARE 3-4+ EDEMATOUS, PALPABLE PULSES. NO COMPLAINTS OF SHORTNESS OF BREATH, NO BiPAP USE THROUGH THE NIGHT, USING RA. PT DID HAVE BM THIS MORNING. DR HAAS HAS BEEN IN TO SEE PT, NEW MEDS ADDED.
--- NOTE | 2020-03-21 13:06 | NUR ---
DR MCINTOSH IN TO SEE PT, NO CHANGES MADE. PT RESTS IN THE BED WITH EYES CLOSED.
--- NOTE | 2020-03-21 16:10 | NUR ---
PT CONTINUES BEFORE, NO CHANGE IN STATUS. PT HAS BEEN AT REST IN THE BED WITHOUT COMPLAINT OR EVIDENCE OF DISTRESS.
--- NOTE | 2020-03-21 19:30 | NUR ---
awake. denies distress. cardiac nurse specialist shows sinus rhythm ivcd hr 69. #20 rac saline lock. fluid restriction cont. good cath in place. urine clear yellow. fall precautions cont.
--- NOTE | 2020-03-21 21:00 | NUR ---
sonata 5mg po given per request for sleep.
--- NOTE | 2020-03-22 00:01 | NUR ---
eyes closed. no distress. air sampling and monitoring shows sinus rhythm hr 64.
[2020-03-22 00:13] VITALS: BP 139/64
--- NOTE | 2020-03-22 02:00 | NUR ---
resting quietly. resps een & unlabored. nad. color television console monitor shows sinus rhythm hr 64.
--- NOTE | 2020-03-22 03:30 | NUR ---
medicated for siddiqui as requested.
--- NOTE | 2020-03-22 05:05 | NUR ---
lab here. blood drawn.
[2020-03-22 05:28] LABS: HEMATOCRIT 26.4 % (39.0-50.0); HEMOGLOBIN 8.5 g/dl (14.0-18.0); IMMATURE GRANULOCYTES 0.2 % (0.0-5.0); MEAN CELL VOLUME 100.8 fL CALC (80.0-100.0); MEAN CORPUSCULAR HGB 32.4 pG CALC (26.0-32.0); MEAN CORPUSCULAR HGB CONC 32.2 g/dL CAL (32.0-36.0); NEUT# 3.92 thou/uL (1.82-7.42); RED BLOOD COUNT 2.62 mill/uL (4.70-6.10); RED CELL DISTRI WIDTH 15.8 % (11.5-15.5)
[2020-03-22 05:57] LABS: ALBUMIN 3.2 g/dL (3.2-5.0); ANION GAP 9 (6-22 (CALC)); BUN 34 mg/dL (9-20); BUN/CREATININE RATIO 27 (12-20 (CALC)); CARBON DIOXIDE 26 mmol/l (22-30); CHLORIDE 110 mmol/l (95-108); CREATININE 1.3 mg/dL (0.7-1.3); GFR 58 ML/MIN (>=60 (CALC)); GFR FOR AFR.AMER. > 60 ML/MIN (>=60 (CALC)); MAGNESIUM 1.7 mg/dL (1.6-2.3); POTASSIUM 4.6 mmol/l (3.5-5.1); SODIUM 141 mmol/l (137-146)
[2020-03-22 07:00] VITALS: BP 176/76
--- NOTE | 2020-03-22 07:10 | NUR ---
REPORT RECEIVED FROM BRENDAN MANRIQUE. PT RESTING IN BED SEMI FOWLERS WITH EYES CLOSED AND NO SIGNS OF DISTRESS. RESPIRATIONS EVEN AND UNLABORED ON ROOM AIR. AWAKENS TO VERBAL STIMULI. ACCU CHECK 80. PT REQUESTS TO LEAVE THE LIGHT OFF AND LET HIM REST. IV SITE APPERS HEALTHY AND FLUSHES. SR WITH IVCD ON SIGNAL MANAGER. SAFETY MEASURES IN PLACE. CALL LIGHT WITHIN REACH.
--- NOTE | 2020-03-22 08:15 | NUR ---
DR. HAAS AT BEDSIDE TO DISCUSS POC AND DISCHARGE PLANS.
--- NOTE | 2020-03-22 10:45 | NUR ---
IV site discontinued, cath intact. No edema , no redness, voices no discomfort. Conteh catheter removed as well; 1425 ml emptied prior to removal; pt tolerated well.
[2020-03-22 11:00] VITALS: BP 143/66
--- NOTE | 2020-03-22 11:23 | NUR ---
PT DRESSED AND SITTING UP IN CHAIR. DECLINES LUNCH AND ACCU CHECK STATING THAT HE WANTS TO GO HOME QUICKLY POSSIBLE. [facility] CALLED.
--- NOTE | 2020-03-22 11:25 | NUR ---
DR. MCINTOSH AT BEDSIDE TO SEE PT IMMEDIATELY PRIOR TO DC. INSTRUCTED PT TO FOLLOW UP WITH HIM IN THE OFFICE WITHIN ONE WEEK. PT STATES UNDERSTANDING.
--- NOTE | 2020-03-22 11:30 | NUR ---
Discharge instructions given. Patient verbalizes understanding of same. Discharged in stable condition via Taxi to Home with staff. All belongings sent with pt including meds from pharmacy.
--- NOTE | 2020-03-26 14:46 | NUR ---
pNEUMONIA POST DISCHARGE FOLLOW UP CALL COMPLETED TODAY. pT. STATES EVERYTHING IS GOING WELL. nO FEVER, CHILLS, sob, FATIGUE. pT SAW M[employer] SERVICES MANAGER TODAY, HAS APPT. WITH pcp TOMORROW, AND WILL SEE UROLOGIST ON thursday. pT. ALSO HAS A nm STRESS TEST SCHEDULED FOR NEXT WEEK. nO NEW MEDICATIONS WERE PRESCRIBED UPON DISCHARGE. nO NEEDS OR QUESTIONS BY PATIENT.
== END 2020-03-22 11:30 | disposition home or self-care (01) | DRG 291 ==
LOC: ED 15:51 → ED-I 17:30 → ED 17:55 → ICU 17:56
PROVIDERS: Family Medicine; Internal Medicine; Internal Medicine Nephrology; ADMIT Internal Medicine; ATTEND Internal Medicine
PROC: 0T9B70Z Drainage of Bladder with Drainage Device, Via Natural or Artificial Opening (ICD-10-PCS; 2020-03-20)
PROC: 3E0234Z Introduction of Serum, Toxoid and Vaccine into Muscle, Percutaneous Approach (ICD-10-PCS; principal; 2020-03-22)
DX: I13.0 Hypertensive heart and chronic kidney disease with heart failure and stage 1 through stage 4 chronic kidney disease, or unspecified chronic kidney disease (principal); I50.23 Acute on chronic systolic (congestive) heart failure; J96.01 Acute respiratory failure with hypoxia; N17.9 Acute kidney failure, unspecified; E11.22 Type 2 diabetes mellitus with diabetic chronic kidney disease; N18.30 Chronic kidney disease, stage 3 unspecified; E87.5 Hyperkalemia; E11.42 Type 2 diabetes mellitus with diabetic polyneuropathy; E11.51 Type 2 diabetes mellitus with diabetic peripheral angiopathy without gangrene; D63.1 Anemia in chronic kidney disease; E78.5 Hyperlipidemia, unspecified; I25.2 Old myocardial infarction; Z87.01 Personal history of pneumonia (recurrent); Z79.4 Long term (current) use of insulin; Z89.422 Acquired absence of other left toe(s); Z23 Encounter for immunization; Z20.828 Contact with and (suspected) exposure to other viral communicable diseases

== ENCOUNTER 2020-04-23 09:54 | Observation (INO) | payer MEDICAID ==
[~2020-04-23] VITALS: Ht 175.3 cm; Wt 110.0 kg
[~2020-04-23 09:54] MED LIST changes: +NIFEDIPINE30 MG PO; +PANTOPRAZOLE SO40 M1 PO
--- NOTE | 2020-04-23 10:02 | NUR ---
PT TO ROOM WITH A STEADY GAIT FOR BEDSIDE TRIAGE.
[2020-04-23 10:29] LABS: IMMATURE GRANULOCYTES 0.3 % (0.0-5.0); MEAN CELL VOLUME 98.2 fL CALC (80.0-100.0); MEAN CORPUSCULAR HGB 32.2 pG CALC (26.0-32.0); MEAN CORPUSCULAR HGB CONC 32.8 g/dL CAL (32.0-36.0); NEUT# 7.29 thou/uL (1.82-7.42); RED BLOOD COUNT 3.26 mill/uL (4.70-6.10); RED CELL DISTRI WIDTH 15.4 % (11.5-15.5)
[2020-04-23 10:31] LABS: HEMOGLOBIN 10.5 g/dl (14.0-18.0)
[2020-04-23 11:07] LABS: ALBUMIN 3.6 g/dL (3.2-5.0); ALKALINE PHOSPHATASE 77 u/l (38-126); BILIRUBIN, TOTAL 0.4 mg/dL (0.0-1.4); BUN 38 mg/dL (9-20); BUN/CREATININE RATIO 17 (12-20 (CALC)); CARBON DIOXIDE 23 mmol/l (22-30); CHLORIDE 109 mmol/l (95-108); CREATININE 2.2 mg/dL (0.7-1.3); GFR 31 ML/MIN (>=60 (CALC)); GFR FOR AFR.AMER. 38 ML/MIN (>=60 (CALC)); SGOT/AST 21 u/l (17-59); SODIUM 138 mmol/l (137-146); TOTAL PROTEIN 6.3 g/dL (6.3-8.2)
[2020-04-23 11:25] LABS: ANION GAP 12 (6-22 (CALC)); POTASSIUM 5.9 mmol/l (3.5-5.1)
--- NOTE | 2020-04-23 11:46 | NUR ---
MEDICATIONS ADMINSTERED PT EDUCATED ON USE AND SIDE EFFECTS-
--- NOTE | 2020-04-23 12:15 | NUR ---
GALVEZ INSERTED PT TOLERATED WELL WITHOUT DISTRESS. PRIOR TO INSERTION FRANCISCO SIGNED AND BLADDER SCAN PERFORMED WITH OVER 350 URINE IN THE BLADER. CURRENTLY 300 OF URINE FLOWING WITH MORE CONTINUING-
--- NOTE | 2020-04-23 13:23 | NUR ---
REPORT RECEIVED FROM STEFANIE MATTA.
[2020-04-23 13:40] VITALS: BP 161/75
--- NOTE | 2020-04-23 13:40 | NUR ---
PT ARRIVED TO MED/SURG ROOM 273 IN STABLE CONDITION VIA WHEELCHAIR ACCOMPANIED BY STEFANIE MATTA;PT AMBULATED TO BEDSIDE WITH A STEADY GAIT;PT A&O X3, ORIENTED TO ROOM AND CALL LIGHT SYSTEM;WT AND VS OBTAINED;PT REPORTS SWITCHING OVER DIURETICS AND THE PHARMACY BEING OUT OF LASIX AND UNABLE TO FILL HIS RX FOR 1 WEEK;PT DENIES ANY CURRENT PAIN OR DISCOMFORTS,PAIN SCALE AND REPORTING EDUCATED;RESPIRATIONS SHALLOW ON RA,CLEAR/DIMINISHED LUNG SOUNDS NOTED;ABDOMEN DISTENDED/SOFT ON PALPATION AND ACTIVE IN ALL 4 QUADRANTS,LAST BM 04/23/20;WEAK PEDAL PULSES WITH 2+ EDEMA NOTED TO BLE,ENCOURAGED ELEVATION;GALVEZ CATHETER PATENT DRAINING CLEAR/YELLOW URINE TO GRAVITY WITH EASE, STAT LOCK TO RIGHT THIGH;MULTIPLE HEALING ABRASIONS NOTED THROUGHOUT;#20G TO LAC FLUSHED AND PATENT,SITE APPEARS HEALTHY;TELE MONITORING IN PLACE;ACCUCHECK OBTAINED RESULTING IN 129;ALLERGY BAND APPLIED TO RIGHT HAND;PT DENIES ANY ADDITIONAL NEEDS AND IS ENCOURAGED TO CALL FOR ASSISTANCE IF NEEDED;FALL PRECAUTIONS IN PLACE WITH BED IN THE LOWEST POSITION AND CALL LIGHT IN REACH;WILL CONTINUE TO MONITOR
--- NOTE | 2020-04-23 13:47 | NUR ---
REPORT CALLED AND GIVEN TO CHELSEA WATTS ON [facility]. PRIOR TO TRANSFER PT STABLE WITHOUT COMPLAINTS.
[2020-04-23 14:00] VITALS: BP 153/68
--- NOTE | 2020-04-23 16:00 | NUR ---
PT RESTING IN SEMI FOWLERS POSITION;RESPIRATIONS EVEN AND UNLABORED ON RA;PT DENIES ANY CURRENT PAIN OR DISCOMFORTS;TELE MONITORING IN PLACE;IV SITE PATENT TO LAC AND NS STARTED @ 50ML/HR,SITE APPEARS HEALTHY;GALVEZ CATHETER REMAINS PATENT DRAINING CLEAR/YELLOW URINE TO GRAVITY WITH EASE;ACCUCHECK 180;NICOTINE PATCH APPLIED TO RIGHT SHOULDER;PT DENIES ANY ADDITIONAL NEEDS AND IS ENCOURAGED TO CALL FOR ASSISTANCE IF NEEDED;CALL LIGHT IN REACH;WILL CONTINUE TO MONITOR
[2020-04-23 19:00] VITALS: BP 157/72
--- NOTE | 2020-04-23 21:00 | NUR ---
PT RESTING IN BED WATCHING TV. PHYSICAL ASSESSMENT COMPLETE. SCHEDULED MEDICATIONS ADMINISTIRED, SEE E-MAR. PLAN OF CARE REVIEWED. PT VERBALIZES UNDERSTANDING AND DENIES QUESTIONS. CUP OF COFFEE PROVIDED PER PTS REQUEST. PT DENIES FURTHER NEEDS AT THIS TIME. CALL FREEMAN WITHIN REACH, AGREES TO CALL PRN.
[2020-04-24] VITALS: BP 168/74
--- NOTE | 2020-04-24 01:00 | NUR ---
PT LAYING IN BED WITH EYES CLOSED, APPEARS TO BE SLEEPING COMFORTABLY. RESPIRATIONS REGULAR AND UNLABORED. NO APPARENT DISTRESS. CALL FREEMAN REMAINS WITHIN REACH.
[2020-04-24 04:00] VITALS: BP 152/68
--- NOTE | 2020-04-24 06:11 | NUR ---
PT RESTING IN BED, DENIES NEEDS AT THIS TIME. CALL FREEMAN WITHIN REACH, AGREES TO CALL PRN.
[2020-04-24 06:36] LABS: HEMATOCRIT 32.4 % (39.0-50.0); HEMOGLOBIN 10.4 g/dl (14.0-18.0); IMMATURE GRANULOCYTES 0.4 % (0.0-5.0); MEAN CELL VOLUME 97.9 fL CALC (80.0-100.0); MEAN CORPUSCULAR HGB 31.4 pG CALC (26.0-32.0); MEAN CORPUSCULAR HGB CONC 32.1 g/dL CAL (32.0-36.0); NEUT# 5.37 thou/uL (1.82-7.42); RED BLOOD COUNT 3.31 mill/uL (4.70-6.10); RED CELL DISTRI WIDTH 15.3 % (11.5-15.5)
--- NOTE | 2020-04-24 07:00 | NUR ---
REPORT RECEIVED FROM STEFANIE GARRETT.
[2020-04-24 07:35] LABS: ALBUMIN 3.4 g/dL (3.2-5.0); BILIRUBIN, TOTAL 0.3 mg/dL (0.0-1.4); CHOLESTEROL HDL RATIO 8.2 (<4.4 (CALC)); CREATININE 1.9 mg/dL (0.7-1.3); MAGNESIUM 2.1 mg/dL (1.6-2.3); TOTAL PROTEIN 5.9 g/dL (6.3-8.2)
[2020-04-24 07:44] LABS: POTASSIUM 5.8 mmol/l (3.5-5.1)
--- NOTE | 2020-04-24 07:55 | NUR ---
PT RESTING IN SEMI FOWLERS POSITION,A&O X3;VS OBTAINED AND ASSESSMENT, PT CURRENT BP 193/78 HR 78 AND ALL MORNING MEDICATIONS GIVEN AT THIS TIME;PT DENIES ANY CURRENT PAIN OR DISCOMFORTS,PAIN SCALE AND REPORTING EDUCATED;RESPIRATIONS SHALLOW ON RA,CLEAR/DIMINISHED LUNG SOUNDS NOTED;ABDOMEN DISTENDED/SOFT ON PALPATION AND ACTIVE IN ALL 4 QUADRANTS;GALVEZ CATHETER PATENT DRAINING CLEAR/YELLOW URINE TO GRAVITY WITH EASE,STAT LOCK IN PLACE;WEAK PEDAL PULSES WITH +2 EDEMA NOTED TO BLE;GENERALIZED EDEMA NOTED THROUGHOUT;#20G TO LAC INFUSING NS WITH EASE PER ORDER;TELE MONITORING IN PLACE;ACCUCHECK 205, PT COVERED WITH SLIDING SCALE PER ORDER;PT DENIES ANY ADDITIONAL NEEDS AND IS ENCOURAGED TO CALL FOR ASSISTANCE IF NEEDED;FALL PRECAUTIONS IN PLACE WITH BED IN THE LOWEST POSITION AND CALL LIGHT IN REACH;WILL CONTINUE TO MONITOR
[2020-04-24 07:56] VITALS: BP 193/78
--- NOTE | 2020-04-24 09:21 | NUR ---
AT BEDSIDE DISCUSSING POC
--- NOTE | 2020-04-24 09:30 | NUR ---
BP RE-CHECK 163/72 HR 77
[2020-04-24 09:31] VITALS: BP 163/72
[2020-04-24 11:17] VITALS: BP 134/67
--- NOTE | 2020-04-24 11:26 | NUR ---
PT RESTING IN SEMI FOWLERS POSITION;RESPIRATIONS EVEN AND UNLABORED ON RA;PT DENIES ANY CURRENT PAIN OR DISCOMFORTS;TELE MONITORING IN PLACE;IV SITE PATENT INFUSING NS PER ORDER;ACCUCHECK 123, NO COVERAGE NEEDED;GALVEZ CATHETER REMOVED AT THIS TIME PER ORDER AND PT TOLERATED WELL;PT ENCOURAGED TO CALL FOR ASSISTANCE IF NEEDED;CALL LIGHT IN REACH;WILL CONTINUE TO MONITOR
--- NOTE | 2020-04-24 12:00 | NUR ---
PT CALLED USING CALL LIGHT SYSTEM TO NOTIFY WRITTER THAT HE FELT HIS BLOOD SUGAR WAS LOW;ACCUCHECK OBTAINED RESULTING IN 54; MEAL TRAY, SNACKS AND SODA PROVIDED;PT DIAPHORETIC BUT DENIES ANY ADDITIONAL SYMPTOMS;WILL CONTINUE TO MONITOR
--- NOTE | 2020-04-24 12:15 | NUR ---
ACCUCHECK RE-CHECKED RESULTING IN 70.
--- NOTE | 2020-04-24 13:02 | NUR ---
PT ACCUERADHA 180
--- NOTE | 2020-04-24 14:05 | NUR ---
ALL DISCHARGE INSTRUCTIONS PROVIDED AT THIS TIME;PT ENCOURAGED TO F/U WITH PCP, MONITOR WEIGHT AND BLOOD SUGARS,CONTINUE TO TAKE LASIXS PRESCRIBED;PT VERBALIZES UNDERSTANDING AND DENIES ANY ADDITIONAL QUESTIONS OR NEEDS;IV SITE REMOVED WITH CATHETER INTACT AND TELE MONITORING D/C;PT REFUSES HOME HEALTH FOR D/C AND WHEELCHAIR FOR D/C HOME;PT MOTHER TO TRANSPORT PT HOME;WILL CONTINUE TO MONITOR
--- NOTE | 2020-04-24 14:13 | NUR ---
Discharge instructions given. Patient verbalizes understanding of same. Discharged in stable condition via Ambulatory to Home with family. All belongings sent with pt. PT AMBULATED TO LOBBY WITH A STEADY GAIT,REFUSED WHEELCHAIR FOR D/C HOME;ALL BELONGINGS LEFT WITH PT.MOTHER TO TRANSPORT PT HOME.
== END 2020-04-24 14:12 | disposition home or self-care (01) ==
LOC: ED 09:54 → ED-I 12:11 → ED 12:29 → MS2 12:30
PROVIDERS: Family Medicine; Nurse Practitioner; ADMIT Internal Medicine; ATTEND Internal Medicine
DX: I13.0 Hypertensive heart and chronic kidney disease with heart failure and stage 1 through stage 4 chronic kidney disease, or unspecified chronic kidney disease (principal); I50.9 Heart failure, unspecified; E11.22 Type 2 diabetes mellitus with diabetic chronic kidney disease; N18.30 Chronic kidney disease, stage 3 unspecified; E11.42 Type 2 diabetes mellitus with diabetic polyneuropathy; E11.51 Type 2 diabetes mellitus with diabetic peripheral angiopathy without gangrene; E11.65 Type 2 diabetes mellitus with hyperglycemia; E87.5 Hyperkalemia; N17.9 Acute kidney failure, unspecified; F32.9 Major depressive disorder, single episode, unspecified; E78.5 Hyperlipidemia, unspecified; F17.210 Nicotine dependence, cigarettes, uncomplicated; I25.2 Old myocardial infarction; T50.1X6A Underdosing of loop [high-ceiling] diuretics, initial encounter; Z91.128 Patient's intentional underdosing of medication regimen for other reason; Z79.4 Long term (current) use of insulin; Z20.828 Contact with and (suspected) exposure to other viral communicable diseases
CPT/HCPCS: G0378

== ENCOUNTER 2020-05-18 20:16 | Inpatient (IN) | payer MEDICAID ==
[~2020-05-18] VITALS: Ht 175.3 cm; Wt 108.6 kg
--- NOTE | 2020-05-18 20:20 | NUR ---
TO ROOM VIA W/C WITH DRESSING...BLEEDING.
--- NOTE | 2020-05-18 20:22 | NUR ---
AREA CLEANSED AND PRESSURE DRESSING APPLIED BY Keren RIVERA.
[2020-05-18] MEDS ORDERED: LOSARTAN POTASS25 MG PO (21:12)
[2020-05-18 21:35] LABS: HEMATOCRIT 34.4 % (39.0-50.0); HEMOGLOBIN 10.9 g/dl (14.0-18.0); IMMATURE GRANULOCYTES 0.8 % (0.0-5.0); MEAN CELL VOLUME 98.6 fL CALC (80.0-100.0); MEAN CORPUSCULAR HGB 31.2 pG CALC (26.0-32.0); MEAN CORPUSCULAR HGB CONC 31.7 g/dL CAL (32.0-36.0); NEUT# 6.54 thou/uL (1.82-7.42); RED BLOOD COUNT 3.49 mill/uL (4.70-6.10); RED CELL DISTRI WIDTH 14.6 % (11.5-15.5)
[2020-05-18 21:40] LABS: ALKALINE PHOSPHATASE 85 u/l (38-126); BILIRUBIN, TOTAL 0.4 mg/dL (0.0-1.4); BUN 46 mg/dL (9-20); BUN/CREATININE RATIO 27 (12-20 (CALC)); CARBON DIOXIDE 19 mmol/l (22-30); CHLORIDE 115 mmol/l (95-108); CREATININE 1.7 mg/dL (0.7-1.3); GFR 42 ML/MIN (>=60 (CALC)); GFR FOR AFR.AMER. 51 ML/MIN (>=60 (CALC)); SODIUM 141 mmol/l (137-146)
[2020-05-18 21:49] LABS: ALBUMIN 4.1 g/dL (3.2-5.0); ANION GAP 12 (6-22 (CALC)); POTASSIUM 5.4 mmol/l (3.5-5.1); SGOT/AST 44 u/l (17-59); TOTAL PROTEIN 7.3 g/dL (6.3-8.2)
[2020-05-18 21:52] LABS: MYOGLOBIN 203 ng/mL (0 - 121)
--- NOTE | 2020-05-18 22:03 | NUR ---
PT VOIDED APPROX 1000 ML YELLOW URINE IN URINAL.
--- NOTE | 2020-05-18 22:08 | NUR ---
HAND OFF REPORT RECEIVED, ABT TREATMENT STARTED.
--- NOTE | 2020-05-18 22:17 | NUR ---
REPORT PROVIDED TO MIKAL WATTS.
[2020-05-18 22:47] LABS: URINE BILIRUBIN - DIPSTICK NEGATIVE (NEGATIVE); URINE BLOOD DIPSTICK SMALL (NEGATIVE); URINE COLOR YELLOW; URINE GLUCOSE - DIPSTICK NEGATIVE (NEGATIVE); URINE KETONE NEGATIVE (NEGATIVE); URINE NITRITE - DIPSTICK NEGATIVE (Negative); URINE PH 5.5 (4.5-8.0); URINE PROTEIN - DIPSTICK 100 mg/dL (NEG-TRACE); URINE UROBILINOGEN - DIPSTICK 0.2 E.U./dL (0.2)
[2020-05-18 22:49] LABS: URINE LEUK ESTERASE NEGATIVE (NEGATIVE)
[2020-05-18 22:56] LABS: URINE EPITHELIAL CELLS FEW EPI/hpf (0-FEW); URINE WBC 0-2 WBC/hpf (0-5)
[2020-05-18 22:57] LABS: URINE BACTERIA FEW hpf
--- NOTE | 2020-05-18 23:23 | NUR ---
PATIENT RESTING QUIETLY AT [facility], LIGHTS DIMMED FOR COMFORT, NO C/O PAIN OR DISCOMFORT, NO S/S OF DISTRESS NOTED, RESPIRATIONS EVEN AN DUNLABORED, AWAITING DIAGNOSTIC RESULTS.
--- NOTE | 2020-05-19 00:08 | NUR ---
AWAITING INPATIENT ROOM ASSIGNMENT
--- NOTE | 2020-05-19 00:24 | NUR ---
ATTEMPTED TO CALL REPORT TO INPATIENT FLOOR, NURSE UNAVAILABLE.
--- NOTE | 2020-05-19 00:29 | NUR ---
HAND OFF REPORT GIVEN TO GERRY
--- NOTE | 2020-05-19 00:34 | NUR ---
PT ARRIVES TO UNIT AT 0034 VIA STRETCHER ACCOMPANIED BY Emily GONZALES RN, ADMITTED TO ROOM 281. AMBULATORY TO BATHROOM, THEN BED. PT ORIENTED TO UNIT. PT HAS QUESTIONS REGARDING PUI CV-19 STATUS. QUESTIONS ANSWERED TO PTS SATISFACTION. ADMISSION AND PHYSICAL ASSESMENT COMPLETED. PT IS ON ROOM AIR, RESPIRATIONS REGULAR AND UNLABORED, LUNGS CLEAR WITH DIMINISHED BASES. DENIES COUGH. REPORTS SOB WITH EXERTION. ABD SOFT AND DISTENDED. BOWEL SOUNDS PRESENT. LAST BM 05/18, DESCRIBES "NORMAL", ONLY TRACE EDMA REMAINS TO BLE. REPORTED "WOUNDS" PRESENT CLOSED, RESURFACED, PINK AREAS WITH DRY FLAKY SKIN SCATTERED TO BLE. R-ANKLE WITH DRESSING APPLIED IN ED IS C/D/I. PT REPORTS INJURY CAUSED BY ATTEMPTING TO REMOVE DRESSING WITH A POCKET KNIFE AND ACCIDENTALLY CUTTING HIS ANKLE. PLAN OF CARE REVIEWED. PT SEEMS DISINTERESTED. INTERUPPTS TEACHING TO ASK FOR COFFEE AND FOOD. ASSURED PT FOOD AND BEVERAGE TO BE PROVIDED AFTER ADMISSION COMPLETE. PT VERBALIZES UNDERSTANDING OF PROVIDED EDUCATION AND PLAN OF CARE AND DENIES QUESTIONS. PT DENIES FURTHER NEEDS. CALL FREEMAN WITHIN REACH, AGREES TO CALL PRN.
--- NOTE | 2020-05-19 00:45 | NUR ---
WATER, COFFEE, AND WARMED FROZEN MEAL TRAY PROVIDED.
[2020-05-19 00:53] VITALS: BP 105/58
[2020-05-19 04:00] VITALS: BP 141/71
[2020-05-19 04:40] LABS: ALBUMIN 3.5 g/dL (3.2-5.0); BILIRUBIN, TOTAL 0.3 mg/dL (0.0-1.4); CREATININE 1.7 mg/dL (0.7-1.3); TOTAL PROTEIN 6.1 g/dL (6.3-8.2)
[2020-05-19 04:44] LABS: POTASSIUM 5.4 mmol/l (3.5-5.1)
--- NOTE | 2020-05-19 04:45 | NUR ---
PT LAYING IN BED WITH EYES CLOSED, NO APPARENT DISTRESS, APPEARS TO BE SLEEPING COMFORTABLY. RESPIRATIONS REGULAR AND UNLABORED. CALL FREEMAN REMAINS WITHIN REACH.
[2020-05-19 04:47] LABS: HEMATOCRIT 32.1 % (39.0-50.0); IMMATURE GRANULOCYTES 0.2 % (0.0-5.0); MEAN CELL VOLUME 99.1 fL CALC (80.0-100.0); MEAN CORPUSCULAR HGB 30.9 pG CALC (26.0-32.0); MEAN CORPUSCULAR HGB CONC 31.2 g/dL CAL (32.0-36.0); NEUT# 6.17 thou/uL (1.82-7.42); RED BLOOD COUNT 3.24 mill/uL (4.70-6.10); RED CELL DISTRI WIDTH 14.6 % (11.5-15.5)
[2020-05-19 07:55] VITALS: BP 157/84
[2020-05-19 11:13] VITALS: BP 133/79
--- NOTE | 2020-05-19 11:44 | NUR ---
PT SEEN BY DR KIDD THIS AM. NICOTINE PATCH ORDERED AND PLACED. PT ALERT AND ORIENTED X 3. LUNGS CLEAR, RA. NO DISTRESS, NO COMPLAINTS.
--- NOTE | 2020-05-19 13:35 | NUR ---
PT AMBULATORY IN ROOM, TIPPED OVER POLE, IVF ON FLOOR. HOUSEKEEPING CLEANED UP, PT BACK IN BED UNDER COVERS PER COLDNESS TO ROOM.
[2020-05-19 15:28] VITALS: BP 182/85
--- NOTE | 2020-05-19 17:59 | NUR ---
PT PROVIDED IVP FOR ELEVATED BLOOD PRESSURE, ASYMPTOMATIC. PT RESTS IN THE BED IN NO ACUTE DISTRESS, NO CHEST PAIN.
[2020-05-19 19:10] VITALS: BP 160/65
[2020-05-20 00:20] VITALS: BP 165/67
[2020-05-20 04:05] VITALS: BP 164/69
[2020-05-20 07:38] VITALS: BP 179/81
--- NOTE | 2020-05-20 09:00 | NUR ---
PT IS AWAKE, ALERT, ORIENTED X 3. LUNGS CLEAR, RA. ABDOMEN SOFT, NONTENDER, BM TODAY. NO COMPLAINT OF CHEST PAIN OR OTHERWISE.
[2020-05-20 09:40] LABS: HEMATOCRIT 32.7 % (39.0-50.0); HEMOGLOBIN 10.5 g/dl (14.0-18.0); IMMATURE GRANULOCYTES 0.2 % (0.0-5.0); MEAN CELL VOLUME 99.1 fL CALC (80.0-100.0); MEAN CORPUSCULAR HGB 31.8 pG CALC (26.0-32.0); MEAN CORPUSCULAR HGB CONC 32.1 g/dL CAL (32.0-36.0); NEUT# 4.63 thou/uL (1.82-7.42); RED BLOOD COUNT 3.3 mill/uL (4.70-6.10); RED CELL DISTRI WIDTH 14.4 % (11.5-15.5)
[2020-05-20 10:23] LABS: ALBUMIN 3.7 g/dL (3.2-5.0); ALKALINE PHOSPHATASE 82 u/l (38-126); BILIRUBIN, TOTAL 0.4 mg/dL (0.0-1.4); BUN 37 mg/dL (9-20); BUN/CREATININE RATIO 27 (12-20 (CALC)); CARBON DIOXIDE 22 mmol/l (22-30); CHLORIDE 115 mmol/l (95-108); CREATININE 1.4 mg/dL (0.7-1.3); GFR 53 ML/MIN (>=60 (CALC)); GFR FOR AFR.AMER. > 60 ML/MIN (>=60 (CALC)); SGOT/AST 26 u/l (17-59); SODIUM 142 mmol/l (137-146); TOTAL PROTEIN 6.6 g/dL (6.3-8.2)
[2020-05-20 10:25] LABS: ANION GAP 10 (6-22 (CALC))
[2020-05-20 10:40] VITALS: BP 187/87
[2020-05-20 15:41] VITALS: BP 184/85
--- NOTE | 2020-05-20 16:48 | NUR ---
PT TESTED AGAIN FOR COVID-19 USING PCR SWAB. THIS WAS NEGATIVE. PT WILL NOW MOVE INTO ROOM 279, WARMER HALLWAY.
[2020-05-20 19:08] VITALS: BP 163/62
[2020-05-21 00:17] VITALS: BP 177/73
[2020-05-21 00:40] VITALS: BP 136/62
--- NOTE | 2020-05-21 00:41 | NUR ---
Blood pressure 177/73, prn Labetalol 10mg given IVP over 2 minutes. Medication effective blood pressure now 136/62.
[2020-05-21 04:37] VITALS: BP 156/75
[2020-05-21 06:03] LABS: HEMOGLOBIN 10.2 g/dl (14.0-18.0); IMMATURE GRANULOCYTES 0.3 % (0.0-5.0); MEAN CELL VOLUME 97.9 fL CALC (80.0-100.0); MEAN CORPUSCULAR HGB 31.2 pG CALC (26.0-32.0); MEAN CORPUSCULAR HGB CONC 31.9 g/dL CAL (32.0-36.0); NEUT# 5.33 thou/uL (1.82-7.42); RED BLOOD COUNT 3.27 mill/uL (4.70-6.10); RED CELL DISTRI WIDTH 14.1 % (11.5-15.5)
[2020-05-21 06:31] LABS: ALBUMIN 3.4 g/dL (3.2-5.0); BILIRUBIN, TOTAL 0.3 mg/dL (0.0-1.4); CREATININE 1.5 mg/dL (0.7-1.3); POTASSIUM 4.7 mmol/l (3.5-5.1)
[2020-05-21 08:00] VITALS: BP 144/75
--- NOTE | 2020-05-21 09:00 | NUR ---
PT AWAKE, ALERT, ORIENTED X 3. LUNGS CLEAR, RA. ABDOMEN SOFT,NONTENDER, BM YESTERDAY. RIGHT ANKLE WOUND SEEN WITH DRY, HEALING SCAB. LEGS CONTINUE EDEMATOUS AT 1+, SCABS NOTED SCATTERED BLE. NO DISTRESS NOTED.
[2020-05-21 10:30] VITALS: BP 146/75
[2020-05-21] MEDS ORDERED: BUMETANIDE2 MG IN (11:52)
[2020-05-21] MEDS ORDERED: DOXYCYCL HYC100 MG PO (11:54)
--- NOTE | 2020-05-21 13:26 | NUR ---
PT HAS BEEN DISCHARGED TO HOME. PT VERBALIZES UNDERSTANDING OF DC INSTRUCTIONS, SIGNS FORM. PT PROVIDED SCRUB BOTTOMS. PT LEAVES [facility] IN STABLE CONDITION, NO DISTRESS.
== END 2020-05-21 13:35 | disposition home or self-care (01) | DRG 291 ==
LOC: ED 20:16 → ED-I 23:22 → ED 23:38 → MS2 23:39
PROVIDERS: Emergency Medicine; Nurse Practitioner Family; ADMIT Internal Medicine; ATTEND Internal Medicine
DX: I13.0 Hypertensive heart and chronic kidney disease with heart failure and stage 1 through stage 4 chronic kidney disease, or unspecified chronic kidney disease (principal); I50.33 Acute on chronic diastolic (congestive) heart failure; J18.9 Pneumonia, unspecified organism; E11.22 Type 2 diabetes mellitus with diabetic chronic kidney disease; N18.30 Chronic kidney disease, stage 3 unspecified; I25.10 Atherosclerotic heart disease of native coronary artery without angina pectoris; E11.42 Type 2 diabetes mellitus with diabetic polyneuropathy; E11.51 Type 2 diabetes mellitus with diabetic peripheral angiopathy without gangrene; E11.65 Type 2 diabetes mellitus with hyperglycemia; E78.5 Hyperlipidemia, unspecified; E87.5 Hyperkalemia; S81.811A Laceration without foreign body, right lower leg, initial encounter; F17.200 Nicotine dependence, unspecified, uncomplicated; I25.2 Old myocardial infarction; W26.0XXA Contact with knife, initial encounter; Z79.4 Long term (current) use of insulin; Z79.01 Long term (current) use of anticoagulants; Z89.422 Acquired absence of other left toe(s); Z20.828 Contact with and (suspected) exposure to other viral communicable diseases

== ENCOUNTER 2020-06-15 10:55 | Inpatient (IN) | payer MEDICAID ==
[~2020-06-15] VITALS: Ht 175.3 cm; Wt 102.7 kg
[~2020-06-15 10:55] MED LIST changes: +BUMETANIDE2 MG IN; +DOXYCYCL HYC100 MG PO; +LOSARTAN POTASS25 MG PO
--- NOTE | 2020-06-15 11:00 | NUR ---
PATIENT RESTING IN WAITING ROOM CHAIR IN NAD. SPO2 97% ON ROOM AIR AND RR 22. PATIENT AWARE OF BUSY ED AND WAIT TIME. HE WILL NOTIFY FRONT REGISTRATION STAFF FOR ANY WORSENING OF SYMPTOMS.
--- NOTE | 2020-06-15 11:40 | NUR ---
TRIAGE COMPLETED AND PATIENT BACK TO WAITING ROOM TO AWAIT ROOM ASSIGNMENT.
--- NOTE | 2020-06-15 12:30 | NUR ---
PATIENT SITTING IN WAITING ROOM EATING LUNCH AT THIS TIME.
--- NOTE | 2020-06-15 12:52 | NUR ---
PATIENT TO ROOM WITH A STEADY GAIT.
--- NOTE | 2020-06-15 12:55 | NUR ---
AMBULATED TO BATHROOM FOR BM, PER PT
[2020-06-15] MEDS ORDERED: BUMETANIDE1 MG PO (14:17)
[2020-06-15] MEDS ORDERED: SPIRONOLACT25 MG PO (14:18)
--- NOTE | 2020-06-15 14:27 | NUR ---
IV ACCESS OBTAINED LAB WORK DRAWN AND PER HE DISCUSSED LASIX ADMINISTRATION WITH PT AND HE IS FINE WITH RECIEVING IT (LISTED ALLERGY FOR BLISTERS)
[2020-06-15 14:54] LABS: HEMATOCRIT 32.8 % (39.0-50.0); HEMOGLOBIN 10.2 g/dl (14.0-18.0); IMMATURE GRANULOCYTES 0.4 % (0.0-5.0); MEAN CELL VOLUME 99.4 fL CALC (80.0-100.0); MEAN CORPUSCULAR HGB 30.9 pG CALC (26.0-32.0); MEAN CORPUSCULAR HGB CONC 31.1 g/dL CAL (32.0-36.0); NEUT# 6.25 thou/uL (1.82-7.42); RED BLOOD COUNT 3.3 mill/uL (4.70-6.10); RED CELL DISTRI WIDTH 14.9 % (11.5-15.5)
--- NOTE | 2020-06-15 15:00 | NUR ---
PT RESTING NO OUTPUT FROM LASIX AT THIS TIME,
[2020-06-15 15:09] LABS: ALBUMIN 3.4 g/dL (3.2-5.0); BILIRUBIN, TOTAL 0.3 mg/dL (0.0-1.4); POTASSIUM 5.2 mmol/l (3.5-5.1); TOTAL PROTEIN 6.1 g/dL (6.3-8.2)
--- NOTE | 2020-06-15 16:02 | NUR ---
PT RESTING AWARE OF PLANNED ADMISSION, CALL FREEMAN WITHIN REACH
--- NOTE | 2020-06-15 16:58 | NUR ---
PT RESTING NO CHANGES NORTED, AWARE OF PLANNED ADMISSION
--- NOTE | 2020-06-15 17:45 | NUR ---
PT AWARE OF PENDING ADMISSION
--- NOTE | 2020-06-15 18:15 | NUR ---
REPORT CALLED TO [facility] ONMED SURG TRASNPORTED TO MED SURG VIA WHEELCHAIR, ALL BELONGINGS WITH PT. TELE PLACED PRIOR TO LEAVING UNIT.
[2020-06-15 18:25] VITALS: BP 160/81
--- NOTE | 2020-06-15 18:25 | NUR ---
PT ARRIVED TO UNIT VIA WHEELCHAIR WITH ARTS ADMINISTRATOR OR MANAGER; ALERT AND ORIENTED; AGITATED AND TALKING ON CELL PHONE; DEMANDING NICOTINE PATCH. AMBUALTED TO BED WITH UNSTEADY GAIT. DENIES PAIN. RESPIRATIONS EVEN AND UNLABORED ON ROOM AIR; REPORTS SOB WITH EXERTION. LUNGS ARE CLEAR; SMOKER. REDNESS WITH SCABS AND TRACE EDEMA TO BLE; PHOTO OBTAINED AND PLACED IN CHART. ORIENTED TO ROOM AND CALL LIGHT SYSTEM. PLAN OF CARE DISCUSSED. PT ENCOURAGED TO VERBALIZE CONCERNS; HAS MULITPLE REQUESTS INCLUDING COFFEE, CIGAREETS, FOOD, ETC. SAFETY MEASURES IN PLACE. CALL LIGHT WITHIN REACH.
--- NOTE | 2020-06-15 18:50 | NUR ---
REQUESTING PAIN MEDICATION FOR RIGHT SIDED PAIN. NEW ORDERS RECEIVED.
[2020-06-15 20:00] VITALS: BP 150/82
--- NOTE | 2020-06-15 21:00 | NUR ---
PT MEDICATED ORDERS PROVIDE AND ASSESSMENT COMPLETED AT THIS TIME. NO S/O DISTRESS NOTED. PT ENCOURAGED TO CALL NEEDS ARISE.
--- NOTE | 2020-06-15 22:10 | NUR ---
PT IS AWAKE AND WATCHING TV, SNACK PROVIDED PER REQUEST.
[2020-06-16] VITALS: BP 143/67
--- NOTE | 2020-06-16 00:58 | NUR ---
ED CALLED TO REPORT PT IS OFF GEOTECHNICAL ENGINEER. NO S/O DISTRESS NOTED, PT WAS SLEEPING, BUT AWOKE TO OUR ENTERING THE ROOM
--- NOTE | 2020-06-16 03:41 | NUR ---
PT UP IN RESTROOM, DENIES ANY NEEDS OF ASSISTANCE.
[2020-06-16 04:00] VITALS: BP 131/67
--- NOTE | 2020-06-16 07:00 | NUR ---
SHIFT CHANGE REPORT, PT SLEEPING BUT AROUSES TO VERBAL STIMULI, DENIES PAIN/DISCOMFORT, TELE MONITOR IN PLACE, CALL FREEMAN IN REACH.
[2020-06-16 08:00] VITALS: BP 134/73
--- NOTE | 2020-06-16 10:30 | NUR ---
REPORT WAS RECEIVED FROM POLI. ASSESSMENT DONE. PATIENT IS A&O X3. TELE IN PLACE. 20 RAC THAT APPEARS HEALTHY. RESPS EVEN AND UNLABORED. PATIENT DENIES PAIN AT THIS TIME. CHRISTELLE LEGS REDNESS NOTED. CALL LIGHT IN REACH.
[2020-06-16 11:45] VITALS: BP 141/67
--- NOTE | 2020-06-16 12:00 | NUR ---
PATIENT IS EATING HIS LUNCH WITH NO S/S OF DISTRESS NOTED. PATIENT DENIES ANY NEEDS AT THIS TIME. CALL LIGHT IN REACH.
[2020-06-16 13:31] LABS: ALBUMIN 3.6 g/dL (3.2-5.0); BILIRUBIN, TOTAL 0.2 mg/dL (0.0-1.4); CREATININE 1.8 mg/dL (0.7-1.3); POTASSIUM 5.4 mmol/l (3.5-5.1); TOTAL PROTEIN 6.7 g/dL (6.3-8.2)
--- NOTE | 2020-06-16 16:15 | NUR ---
PATIENT IS RESTING IN BED WITH NO S/S OF DISTRESS NOTED. PATIENT DENIES PAIN OR NEEDS. CALL LIGHT IN REACH.
[2020-06-16 17:13] VITALS: BP 162/85
[2020-06-16 19:39] VITALS: BP 175/82
--- NOTE | 2020-06-16 21:30 | NUR ---
received report for this pt and in bed with eyes open and able to make needs known. skin warm to touch. pt has trace edema noted to bilateral lower extremities. lung sounds are clear. no respiratory distress noted. continent of b/b and uses the urinal with no complications noted. call light within reach. will continue to observe
[2020-06-17] VITALS: BP 149/76
[2020-06-17 03:24] VITALS: BP 147/70
--- NOTE | 2020-06-17 04:00 | NUR ---
pt in bed with eyes closed. no respiratory distress noted. bed in low position and call light is within reach. will continue to observe
[2020-06-17 05:17] LABS: HEMATOCRIT 32.1 % (39.0-50.0); MEAN CELL VOLUME 98.5 fL CALC (80.0-100.0); MEAN CORPUSCULAR HGB 30.7 pG CALC (26.0-32.0); MEAN CORPUSCULAR HGB CONC 31.2 g/dL CAL (32.0-36.0); RED BLOOD COUNT 3.26 mill/uL (4.70-6.10); RED CELL DISTRI WIDTH 14.6 % (11.5-15.5)
[2020-06-17 05:43] LABS: ALBUMIN 3.2 g/dL (3.2-5.0); CREATININE 1.7 mg/dL (0.7-1.3); MAGNESIUM 1.8 mg/dL (1.6-2.3); POTASSIUM 4.7 mmol/l (3.5-5.1); TOTAL PROTEIN 5.9 g/dL (6.3-8.2)
[2020-06-17 06:06] LABS: BILIRUBIN, TOTAL 0.3 mg/dL (0.0-1.4)
--- NOTE | 2020-06-17 07:15 | NUR ---
PT REPORT RECEIVED FROM NIGHT NURSE Ally LOPEZ
[2020-06-17 09:34] VITALS: BP 147/68
--- NOTE | 2020-06-17 09:45 | NUR ---
PT WAS RESTING COMFORTABLY IN BED;PT IS A&O X4; PT HAD EATEN BREAKFAST AND AMBULATED TO SHOWER WITH MINIMAL ASSISTANCE;ASSESSMENT WAS COMPLETED;VITAL SIGNS WERE WITHIN NORMAL RANGE;ACCUCHECK WAS 275;PT WAS COVERED WITH INSULIN; LUNG SOUNDS WERE CLEAR AND RESPIRATIONS WERE NORMAL AND NONLABORED ON RA;HEART SOUNDS WERE REGULAR;PT IS ON TELE SR W/IVCD'S; ABDOMINAL SOUNDS ARE ACTIVE IN ALL QUADRANTS;RADIAL AND PEDAL PULSES ARE STRONG;PT HAS REDNESS, SOME SCABS AND TRACE EDEMA IN BLE;PT IS REPORTING NO PAIN AT THIS TIME;CALL LIGHT WITHIN REACH;BED IN LOWEST POSTITON;WILL CONTINUE TO MONITOR.
--- NOTE | 2020-06-17 10:06 | NUR ---
AT BEDSIDE;DISCUSSING POC.
[2020-06-17 11:47] VITALS: BP 166/76
--- NOTE | 2020-06-17 14:00 | NUR ---
PT WAS RESTING COMFORTABLY IN BED;VS ARE WITHIN NORMAL RANGE;TELE IN PLACE;NO COMPLAINTS OF PAIN AT THIS TIME;CALL LIGHT WITHIN REACH;BED IN LOWEST POSITION;WILL CONTINUE TO MONITOR.
--- NOTE | 2020-06-17 16:21 | NUR ---
PT SITTING ON SIDE OF BED DRINKING A CUP OF COFFEE; TELE IN PLACE; IV SITE FREE OF COMPLICATIONS;PT REPORTS NO PAIN AT THIS TIME;CALL LIGHT LEFT WITHIN REACH; BED IN LOWEST POSTION; WILL CONTINUE TO MONITOR.
[2020-06-17 16:53] VITALS: BP 152/62
[2020-06-17 19:03] VITALS: BP 164/82
--- NOTE | 2020-06-17 20:30 | NUR ---
RECEIVED REPORT FOR THIS PT A DN IN BED WITH EYES OPEN WATCHING TV. CALM AND COOPERATIVE AND VERY PLEASANT. DENIES PAIN. RESPIRATIONS EVEN AND NON LABORED. CONTINENT OF B/B. CALL LIGHT WITHIN REACH. WILL CONTINUE TO OBSERVE.
[2020-06-18 00:08] VITALS: BP 111/51
--- NOTE | 2020-06-18 02:07 | NUR ---
PT IN BED WITH EYES OPEN AND ABLE TO MAKE NEEDS KNOWN. COMPLAINED OF INSOMNIA AND REQUESTING A SLEEPNG PILL. DR. HAAS WAS NOTIFIED AND NEW ORDERS NOTED. Prabhu WAS GIVEN BY MOUTHA AND WILL CONTINUE TO OBSERVE.
[2020-06-18 04:00] VITALS: BP 152/81
--- NOTE | 2020-06-18 05:56 | NUR ---
PT IN BED WITH EYES CLOSED. WAS GIVEN SONATA 5MG FOR UNSOMNIA AND EFEECTIVE. CONTINENT OF B/B AND USES URINAL WITH NO COMPLICATIONS. MEDICATIONS GIVEN AND TOLERATED WELL WTH ADVERSE SIDE EFFECTS. BED IN LOW POSITION AND CALL LIGHT WITHIN REACH
[2020-06-18 08:25] VITALS: BP 191/80
--- NOTE | 2020-06-18 08:25 | NUR ---
PT WAS RESTING AT 0748. ASSESSMENT IS COMPLETED: IV SITE IS FREE FROM REDNESS OR EDEMA. HR IS REG,PULSES ARE STRONG X 4, ABD IS SOFT WITH ACTIV EBS. BREATH SOUNDS ARE CLEAR,BILATERALLY. TELE MONITOR IN PLACE.
[2020-06-18 10:39] LABS: CREATININE 1.5 mg/dL (0.7-1.3); MAGNESIUM 1.7 mg/dL (1.6-2.3)
[2020-06-18 10:40] VITALS: BP 162/76
[2020-06-18 10:40] LABS: POTASSIUM 5.2 mmol/l (3.5-5.1)
--- NOTE | 2020-06-18 12:30 | NUR ---
PT HAS BEEN RELAXING IN BED WITH MO DISTRESS NOTED. IV SITE IS FREE FROM REDNESS OR EDEMA. CONTINUE TO ARIA AND AZUL.
[2020-06-18 15:05] VITALS: BP 175/77
--- NOTE | 2020-06-18 16:30 | NUR ---
PT CONTINUES TO RELAX IN BED WITH MO DISTRESS NTOED. IV SITE IS FREE FROM REDNESS OR EDEMA.
[2020-06-18 19:00] VITALS: BP 177/78
--- NOTE | 2020-06-18 20:00 | NUR ---
RECEIVED REPORT FROM NURSE REAL PATIENT RESTING IN BED WATCHING TV, ALERT ORIENTED AMBULATORY, WITH SALINE LOCK ON RAC G20 PATENT FLUSHES WELL, REMAINS ON TELE SR WITH IVCD 62, LBM 06/18, DENIES PAIN AT THIS TIME, CLEAR/DIMINISHED LUNG SOUNDS, ACTIVE BOWEL SOUNDS BREATHING UNLABORED CALL LIGHT AT REACH.
[2020-06-19] VITALS (7 sets, daily range): BP systolic 148–179; BP diastolic 66–85
--- NOTE | 2020-06-19 | NUR ---
PATIENT AWAKE, DENIES PAIN AT THIS TIME, REQUESTED SLEEPAID, BREATHING EVEN UNLABORED, CALL LIGHT AT REACH.
--- NOTE | 2020-06-19 04:53 | NUR ---
PATIENT RESTING IN BED BREATHING UNLABORED CALL LIGHT AT REACH.
[2020-06-19 07:08] LABS: HEMOGLOBIN 10.9 g/dl (14.0-18.0); MEAN CELL VOLUME 97.4 fL CALC (80.0-100.0); MEAN CORPUSCULAR HGB 31.2 pG CALC (26.0-32.0); MEAN CORPUSCULAR HGB CONC 32.1 g/dL CAL (32.0-36.0); RED BLOOD COUNT 3.49 mill/uL (4.70-6.10); RED CELL DISTRI WIDTH 14.1 % (11.5-15.5)
[2020-06-19 07:29] LABS: CREATININE 1.5 mg/dL (0.7-1.3); MAGNESIUM 1.8 mg/dL (1.6-2.3); POTASSIUM 4.6 mmol/l (3.5-5.1)
--- NOTE | 2020-06-19 08:20 | NUR ---
ASSESSMENT IS COMPLETED: IV SITE IS FREE FROM REDNESS OR EDEMA. HR IS REG,PULSES ARE STRONG X4 ABD IS SOFT WITH ACTIVE BS BRETH SOUNDS ARE CLEAR,BILTERALLY, TELE MONITOR IN PLACE
--- NOTE | 2020-06-19 12:00 | NUR ---
PT IS RELAXING IN BED WITH NO DISRESS NOTED. IV SITE IS FREE FROM REDNESS OR EDEMA.
--- NOTE | 2020-06-19 16:15 | NUR ---
PT IS RELAXING IN BED WITH MO DISTRESS NOTED. IV SITE IS FREE FROM REDNESS OR EDEMA.
--- NOTE | 2020-06-19 20:00 | NUR ---
PT IS IN BED AWAKE WATCHING TV WITH LIGHTS OUT. PT DENIES ANY NEEDS AT THIS TIME.
--- NOTE | 2020-06-19 22:44 | NUR ---
PT MEDICATED ORDERS PROVIDE. ASSESSMENT COMPLETED AT THIS TIME. NO S/O DISTRESS NOTED, CRACKERS AND BOTTLED WATER PROVIDE PER REQUEST. PT INSTRUCTED TO CALL NEEDS ARISE.
[2020-06-20 00:08] VITALS: BP 166/65
--- NOTE | 2020-06-20 03:44 | NUR ---
DENTISTRY TEACHER IN TO OBTAIN V/S. PT DENIES ANY NEEDS AT THIS TIME. NO S/O DISTRESS NOTED AT THIS TIME.
[2020-06-20 04:00] VITALS: BP 147/76
[2020-06-20 08:00] VITALS: BP 156/79
--- NOTE | 2020-06-20 09:00 | NUR ---
PT AWAKE, ALERT, ORIENTED X 3. LUNGS CLEAR, RA. DECREASED PEDAL PULSES WITH WEAK PULSES. NO SHORTNESS OF BREATH, NO SUPPLEMENTAL OXYGEN IN USE.
[2020-06-20 10:54] VITALS: BP 152/67
[2020-06-20 15:37] VITALS: BP 170/81
[2020-06-20 19:22] VITALS: BP 172/85
--- NOTE | 2020-06-20 20:33 | NUR ---
PT RESTING IN BED, NO SIGNS OF DISTRESS NOTED, RESP EVEN AND UNLABORED. PT ALERT AND ORIENTED X3, DISCUSSED POC, PT VERBALIZED UNDERSTANDING. PT MEDICATED PER MAR, ASSESSMENT COMPLETED, CALL LIGHT IN REACH,CONTINUE TO MONITOR.
[2020-06-21] VITALS (8 sets, daily range): BP systolic 158–173; BP diastolic 63–84
--- NOTE | 2020-06-21 | NUR ---
PT RESTING IN BED, NO SIGNS OF DISTRESS NOTED, RESP EVEN AND UNLABORED. PT VOICES NO NEEDS OR COMPLAINTS AT THIS TIME, CALL LIGHT IN REACH,CONTINUE TO MONITOR.
--- NOTE | 2020-06-21 04:23 | NUR ---
PT REQUESTING COFFEE, CALL LIGHT IN REACH, CONTINUE TO MONITOR.
[2020-06-21 05:10] LABS: HEMATOCRIT 33.8 % (39.0-50.0); HEMOGLOBIN 10.6 g/dl (14.0-18.0); MEAN CELL VOLUME 95.5 fL CALC (80.0-100.0); MEAN CORPUSCULAR HGB 29.9 pG CALC (26.0-32.0); MEAN CORPUSCULAR HGB CONC 31.4 g/dL CAL (32.0-36.0); RED BLOOD COUNT 3.54 mill/uL (4.70-6.10); RED CELL DISTRI WIDTH 13.7 % (11.5-15.5)
[2020-06-21 05:30] LABS: ANION GAP 10 (6-22 (CALC)); BUN 29 mg/dL (9-20); BUN/CREATININE RATIO 21 (12-20 (CALC)); CARBON DIOXIDE 25 mmol/l (22-30); CHLORIDE 104 mmol/l (95-108); CREATININE 1.4 mg/dL (0.7-1.3); GFR 53 ML/MIN (>=60 (CALC)); GFR FOR AFR.AMER. > 60 ML/MIN (>=60 (CALC)); MAGNESIUM 1.7 mg/dL (1.6-2.3); POTASSIUM 4.8 mmol/l (3.5-5.1); SODIUM 134 mmol/l (137-146)
--- NOTE | 2020-06-21 09:00 | NUR ---
PT IS ALERT AND ORIENTED X 3. LUNGS CLEAR, RA. PEDAL PULSES DIMINISHED, 2 + EDEMA BILATERALLY.
--- NOTE | 2020-06-21 19:19 | NUR ---
REPORT FROM DESIRAE WATTS. ASSUMED PT CARE. PT ALERT AND ORIENTED. SITTING UP IN BED. NO APPARENT DISTRESS NOTED. COMPLEX CASE MANAGER BOTTLE MACHINE OPERATOR NOTIFIED OF ELEVATED BP. ORDERS PENDING, WILL MEDICATED WHEN AVAILABLE. PT DENIES ANY PAIN OR DISCOMFORT. IV SITE APPEARS HEALTHY. UNATTENDED GROUND SENSOR SPECIALIST IN PLACE. DISCUSSED POC. PT VERBALIZED UNDERSTANDING. COFFEE PROVIDED UPON REQUEST. NO OTHER CURRENT WANTS OR NEEDS. CALL LIGHT WITHIN REACH. WILL CONTINUE TO MONITOR.
--- NOTE | 2020-06-21 23:24 | NUR ---
PRN APRESOLINE ADMINISTERED BY RN ON UNIT AT THIS TIME FOR ELEVATED BP. WILL REASSESS AND CONTINUE TO MONITOR.
[2020-06-22 00:27] VITALS: BP 164/76
--- NOTE | 2020-06-22 00:35 | NUR ---
PRN SONATA ADMINISTERED UPON REQUEST FOR SLEEP. NO APPARENT DISTRESS NOTED. PT DENIES ANY OTHER CURRENT WANTS OR NEEDS. CALL LIGHT WITHIN REACH. WILL CONTINUE TO MONITOR.
--- NOTE | 2020-06-22 03:57 | NUR ---
PT RESTING IN BED WITH EYES CLOSED. NO APPARENT DISTRESS NOTED. RESPIRATIONS EVEN AND UNLABORED. CALL LIGHT WITHIN REACH. WILL CONTINUE TO MONITOR.
[2020-06-22 04:00] VITALS: BP 157/79
[2020-06-22 05:41] LABS: HEMATOCRIT 32.2 % (39.0-50.0); HEMOGLOBIN 10.5 g/dl (14.0-18.0); IMMATURE GRANULOCYTES 0.1 % (0.0-5.0); MEAN CELL VOLUME 94.7 fL CALC (80.0-100.0); MEAN CORPUSCULAR HGB 30.9 pG CALC (26.0-32.0); MEAN CORPUSCULAR HGB CONC 32.6 g/dL CAL (32.0-36.0); NEUT# 5.2 thou/uL (1.82-7.42); RED BLOOD COUNT 3.4 mill/uL (4.70-6.10); RED CELL DISTRI WIDTH 13.6 % (11.5-15.5)
[2020-06-22 05:48] LABS: ALBUMIN 3.2 g/dL (3.2-5.0); BILIRUBIN, TOTAL 0.3 mg/dL (0.0-1.4); CREATININE 1.5 mg/dL (0.7-1.3); POTASSIUM 4.5 mmol/l (3.5-5.1); TOTAL PROTEIN 5.9 g/dL (6.3-8.2)
--- NOTE | 2020-06-22 08:00 | NUR ---
PT IN HIGH MORAN'S POSITION; NO COMPLAINTS OR CONCERNS VOICED; TELE MONITOR IN PLACE; PT DENIES PAIN OR DISCOMFORT; ENCOURAGE USE OF CALL LIGHT IF ANY ASSISTANCE IS NEEDED; WILL CONTINUE TO MONITOR.
[2020-06-22 08:45] VITALS: BP 169/77
[2020-06-22 11:05] VITALS: BP 179/77
--- NOTE | 2020-06-22 11:40 | NUR ---
Discharge instructions given. Patient verbalizes understanding of same. Discharged in stable condition via Wheelchair to Home with family. All belongings sent with pt.
== END 2020-06-22 11:40 | disposition home or self-care (01) | DRG 291 ==
LOC: ED 10:55 → ED-I 15:29 → ED 16:08 → MS2 16:09
PROVIDERS: Family Medicine; Nurse Practitioner; Nurse Practitioner Family; ADMIT Internal Medicine; ATTEND Internal Medicine
DX: I13.0 Hypertensive heart and chronic kidney disease with heart failure and stage 1 through stage 4 chronic kidney disease, or unspecified chronic kidney disease (principal); I50.33 Acute on chronic diastolic (congestive) heart failure; J96.01 Acute respiratory failure with hypoxia; N17.9 Acute kidney failure, unspecified; E11.22 Type 2 diabetes mellitus with diabetic chronic kidney disease; N18.30 Chronic kidney disease, stage 3 unspecified; E11.42 Type 2 diabetes mellitus with diabetic polyneuropathy; E11.51 Type 2 diabetes mellitus with diabetic peripheral angiopathy without gangrene; E87.5 Hyperkalemia; E11.65 Type 2 diabetes mellitus with hyperglycemia; I44.7 Left bundle-branch block, unspecified; E78.5 Hyperlipidemia, unspecified; F17.210 Nicotine dependence, cigarettes, uncomplicated; I25.2 Old myocardial infarction; Z79.4 Long term (current) use of insulin; Z95.5 Presence of coronary angioplasty implant and graft; Z20.822 Contact with and (suspected) exposure to COVID-19

== ENCOUNTER 2020-11-29 09:03 | Emergency (ER) | payer MEDICAID ==
[~2020-11-29] VITALS: Ht 175.3 cm; Wt 103.3 kg
[~2020-11-29 09:03] MED LIST changes: +BUMETANIDE1 MG PO; +SPIRONOLACT25 MG PO
[2020-11-29 10:26] LABS: HEMOGLOBIN 9.5 g/dl (14.0-18.0); IMMATURE GRANULOCYTES 0.4 % (0.0-5.0); MEAN CELL VOLUME 95.2 fL CALC (80.0-100.0); MEAN CORPUSCULAR HGB 32.3 pG CALC (26.0-32.0); MEAN CORPUSCULAR HGB CONC 33.9 g/dL CAL (32.0-36.0); NEUT# 16.03 thou/uL (1.82-7.42); RED BLOOD COUNT 2.94 mill/uL (4.70-6.10); RED CELL DISTRI WIDTH 15.1 % (11.5-15.5)
[2020-11-29 10:45] LABS: ALBUMIN 3.6 g/dL (3.2-5.0); BILIRUBIN, TOTAL 0.4 mg/dL (0.0-1.4); TOTAL PROTEIN 7.4 g/dL (6.3-8.2)
[2020-11-29 10:48] LABS: ACT PARTIAL THROMBO TIME 29.6 SECONDS (20.0-32.5); INTERNATIONAL NORMALIZED RATIO 1.1 RATIO (0.7-1.3); PROTHROMBIN TIME 11.3 SECONDS (9.0-12.5)
[2020-11-29 10:51] LABS: POTASSIUM 4.1 mmol/l (3.5-5.1)
[2020-11-29 10:52] LABS: CREATININE 5.1 mg/dL (0.7-1.3)
[2020-11-29] MEDS ORDERED: NORVASC5 M1 PO (12:06)
[2020-11-29] MEDS ORDERED: COREG25 MG PO (12:07)
[2020-11-29] MEDS ORDERED: ROPINIROLE0.5 MG PO (12:08)
[2020-11-29] MEDS ORDERED: FARXIGA10 MG PO (12:08)
[2020-11-29] MEDS ORDERED: CYCLOBENZAPR5 MG PO (12:09)
[2020-11-29] MEDS ORDERED: METOLAZONE2.5 MG PO (12:10)
[2020-11-29] MEDS ORDERED: FIASP100 UNIT/M SC (12:11)
[2020-11-29] MEDS ORDERED: VITAMIN D350000 UNIT PO (12:18)
[2020-11-29 16:00] VITALS: BP 123/58
== END 2020-11-29 16:00 | disposition short-term general hospital (02) ==
LOC: ED 09:03
DX: E11.621 Type 2 diabetes mellitus with foot ulcer (principal); L97.419 Non-pressure chronic ulcer of right heel and midfoot with unspecified severity; L97.519 Non-pressure chronic ulcer of other part of right foot with unspecified severity; E11.51 Type 2 diabetes mellitus with diabetic peripheral angiopathy without gangrene; E11.42 Type 2 diabetes mellitus with diabetic polyneuropathy; I11.0 Hypertensive heart disease with heart failure; I50.9 Heart failure, unspecified; E78.00 Pure hypercholesterolemia, unspecified; F32.9 Major depressive disorder, single episode, unspecified; F17.210 Nicotine dependence, cigarettes, uncomplicated; Z86.14 Personal history of Methicillin resistant Staphylococcus aureus infection; Z79.4 Long term (current) use of insulin

== ENCOUNTER 2021-11-14 11:45 | Emergency (ER) | payer MEDICARE, OTHER ==
[~2021-11-14] VITALS: Ht 175.3 cm; Wt 86.3 kg
[~2021-11-14 11:45] MED LIST changes: +COREG25 MG PO; +CYCLOBENZAPR5 MG PO; +FARXIGA10 MG PO; +FIASP100 UNIT/M SC; +METOLAZONE2.5 MG PO; +NORVASC5 M1 PO; +ROPINIROLE0.5 MG PO; +VITAMIN D350000 UNIT PO
[2021-11-14 12:31] VITALS: BP 127/69
[2021-11-14] MEDS ORDERED: DOXYCYCL HYC100 M4 PO (12:43)
[2021-11-14 12:53] VITALS: BP 127/69
== END 2021-11-14 13:25 | disposition home or self-care (01) ==
LOC: ED 11:45
PROC: 0H96XZZ Drainage of Back Skin, External Approach (ICD-10-PCS; principal; 2021-11-14)
DX: L02.212 Cutaneous abscess of back [any part, except buttock and flank] (principal); I11.0 Hypertensive heart disease with heart failure; I50.9 Heart failure, unspecified; E11.42 Type 2 diabetes mellitus with diabetic polyneuropathy; E11.51 Type 2 diabetes mellitus with diabetic peripheral angiopathy without gangrene; I25.2 Old myocardial infarction; F32.A Depression, unspecified; B95.62 Methicillin resistant Staphylococcus aureus infection as the cause of diseases classified elsewhere; Z86.14 Personal history of Methicillin resistant Staphylococcus aureus infection; Z79.4 Long term (current) use of insulin; Z79.84 Long term (current) use of oral hypoglycemic drugs

== ENCOUNTER 2021-12-13 13:48 | Emergency (ER) | payer MEDICARE, OTHER ==
[~2021-12-13] VITALS: Ht 175.3 cm; Wt 85.9 kg
[~2021-12-13 13:48] MED LIST changes: +DOXYCYCL HYC100 M4 PO
[2021-12-13 14:15] LABS: IMMATURE GRANULOCYTES 1.1 % (0.0-5.0); MEAN CELL VOLUME 97.5 fL CALC (80.0-100.0); MEAN CORPUSCULAR HGB 34.1 pG CALC (26.0-32.0); NEUT# 7.8 thou/uL (1.82-7.42); RED BLOOD COUNT 3.55 mill/uL (4.70-6.10); RED CELL DISTRI WIDTH 13.1 % (11.5-15.5)
[2021-12-13 14:17] LABS: HEMATOCRIT 34.6 % (39.0-50.0); HEMOGLOBIN 12.1 g/dl (14.0-18.0)
[2021-12-13 14:32] LABS: ALBUMIN 3.7 g/dL (3.2-5.0); CREATININE 2.4 mg/dL (0.7-1.3); POTASSIUM 4.9 mmol/l (3.5-5.1); TOTAL PROTEIN 6.8 g/dL (6.3-8.2)
[2021-12-13 14:34] LABS: BILIRUBIN, TOTAL 0.6 mg/dL (0.0-1.4)
[2021-12-13 17:06] VITALS: BP 143/113
== END 2021-12-13 17:18 | disposition home or self-care (01) ==
LOC: ED 13:48
PROVIDERS: Family Medicine
DX: K62.5 Hemorrhage of anus and rectum (principal); I10 Essential (primary) hypertension; E11.51 Type 2 diabetes mellitus with diabetic peripheral angiopathy without gangrene; E11.42 Type 2 diabetes mellitus with diabetic polyneuropathy; I25.2 Old myocardial infarction; F32.A Depression, unspecified; Z79.4 Long term (current) use of insulin; Z79.84 Long term (current) use of oral hypoglycemic drugs; Z98.890 Other specified postprocedural states

== ENCOUNTER 2022-01-25 19:40 | Emergency (ER) | payer MEDICARE, OTHER ==
[~2022-01-25] VITALS: Ht 175.3 cm; Wt 90.0 kg
[2022-01-25 19:55] VITALS: BP 153/84
[2022-01-25 20:01] VITALS: BP 178/81
[2022-01-25 20:16] VITALS: BP 181/78
[2022-01-25 20:31] VITALS: BP 178/83
[2022-01-25 20:46] VITALS: BP 193/86
[2022-01-25 20:58] LABS: HEMATOCRIT 34.1 % (39.0-50.0); HEMOGLOBIN 12.2 g/dl (14.0-18.0); IMMATURE GRANULOCYTES 0.1 % (0.0-5.0); MEAN CELL VOLUME 96.3 fL CALC (80.0-100.0); MEAN CORPUSCULAR HGB 34.5 pG CALC (26.0-32.0); MEAN CORPUSCULAR HGB CONC 35.8 g/dL CAL (32.0-36.0); NEUT# 5.83 thou/uL (1.82-7.42); RED BLOOD COUNT 3.54 mill/uL (4.70-6.10); RED CELL DISTRI WIDTH 13.3 % (11.5-15.5)
[2022-01-25 20:59] LABS: URINE BILIRUBIN - DIPSTICK NEGATIVE (NEGATIVE); URINE BLOOD DIPSTICK SMALL (NEGATIVE); URINE COLOR YELLOW; URINE GLUCOSE - DIPSTICK >=1000 mg/dL (NEGATIVE); URINE KETONE NEGATIVE (NEGATIVE); URINE LEUK ESTERASE NEGATIVE (NEGATIVE); URINE NITRITE - DIPSTICK NEGATIVE (Negative); URINE PROTEIN - DIPSTICK 100 mg/dL (NEG-TRACE); URINE SPECIFIC GRAVITY 1.025; URINE UROBILINOGEN - DIPSTICK 0.2 E.U./dL (0.2)
[2022-01-25 21:00] VITALS: BP 180/84
[2022-01-25 21:06] LABS: URINE RBC 0-2 RBC/hpf (0-5)
[2022-01-25 21:09] LABS: ALBUMIN 4.2 g/dL (3.2-5.0); CREATININE 2.3 mg/dL (0.7-1.3); POTASSIUM 5.1 mmol/l (3.5-5.1); TOTAL PROTEIN 7.9 g/dL (6.3-8.2)
[2022-01-25 21:10] LABS: BILIRUBIN, TOTAL 0.3 mg/dL (0.0-1.4)
[2022-01-26] MEDS ORDERED: AMOXICILLIN500 MG PO (00:29)
[2022-01-26 00:32] VITALS: BP 180/84
== END 2022-01-26 00:53 | disposition home or self-care (01) ==
LOC: ED 19:40
PROVIDERS: Emergency Medicine
DX: R07.9 Chest pain, unspecified (principal); J02.9 Acute pharyngitis, unspecified; E11.65 Type 2 diabetes mellitus with hyperglycemia; E11.40 Type 2 diabetes mellitus with diabetic neuropathy, unspecified; E11.51 Type 2 diabetes mellitus with diabetic peripheral angiopathy without gangrene; I11.0 Hypertensive heart disease with heart failure; I50.9 Heart failure, unspecified; I25.10 Atherosclerotic heart disease of native coronary artery without angina pectoris; E78.00 Pure hypercholesterolemia, unspecified; F32.A Depression, unspecified; I25.2 Old myocardial infarction; F17.200 Nicotine dependence, unspecified, uncomplicated; Z79.4 Long term (current) use of insulin; Z79.84 Long term (current) use of oral hypoglycemic drugs; Z89.611 Acquired absence of right leg above knee; Z95.820 Peripheral vascular angioplasty status with implants and grafts; Z20.822 Contact with and (suspected) exposure to COVID-19

== ENCOUNTER 2022-07-30 07:41 | Inpatient (IN) | payer MEDICARE, OTHER ==
[~2022-07-30] VITALS: Ht 175.3 cm; Wt 113.0 kg
[~2022-07-30 07:41] MED LIST changes: +ALLERGY RELIEF180 M1 PO; +ALPHA LIPOIC A200 MG PO; +AMOXICILLIN500 MG PO; +BUPROPION HCL150 MG PO; +DOXYCYCLINE HY100 MG PO; +FIBERCON; +ISOSORBIDE DINI30 MG PO
--- NOTE | 2022-07-30 07:51 | NUR ---
PT ARRIVES VIA EMS, TO RM 10 FOR EVALUATION. VITALS STABLE, MD AWARE
--- NOTE | 2022-07-30 08:20 | NUR ---
PT MEDICATED, PT IS RESTING AT THIS TIME.
[2022-07-30 08:38] LABS: ALBUMIN 3.5 g/dL (3.2-5.0); TOTAL PROTEIN 6.6 g/dL (6.3-8.2)
--- NOTE | 2022-07-30 09:00 | NUR ---
DR CELESTIN ALERTED TO CRITCAL BUN 89.
[2022-07-30 09:02] LABS: BILIRUBIN, TOTAL 0.7 mg/dL (0.2-1.3); POTASSIUM 3.6 mmol/l (3.5-5.1)
[2022-07-30 11:40] VITALS: BP 119/48
[2022-07-30 12:00] VITALS: BP 109/46
--- NOTE | 2022-07-30 12:13 | NUR ---
RECEIVE ADMISSION FROM ER. REPORT FROM [facility] NURSE. PATIENT ALERT AND ORIENTED X3. REFER BACK PAIN AT THIS TIME. PATIENT WITH BANDAGE IN THE LEFT FOOT REFER HAD SURGERY PROBABLY 6 WEEKS AGO. REMOVAL TOES IN THE LEFT FOOT. PATIENT IS EDUCATED ABOUD ADMISSION, MEDICATIONS AND NURSING PLAN FOR TODAY. PATIENT REFER UNDERSTAND.
[2022-07-30 12:25] VITALS: BP 103/59
--- NOTE | 2022-07-30 12:50 | NUR ---
PT TRANSFERRED TO [facility], REPORT GIVEN TO STEFANIE CALL.
[2022-07-30] MEDS ORDERED: VITAMIN D350000 UNIT PO (13:27)
[2022-07-30] MEDS ORDERED: ROPINIROLE0.5 MG PO (13:28)
--- NOTE | 2022-07-30 14:20 | NUR ---
CONFIRMED A PHYSICIAN CONSULT WITH THE [facility]. I SPOKE WITH NANCY AT 1420 HRS.
--- NOTE | 2022-07-30 14:23 | NUR ---
CONTACTED DR MCINTOSH'S OFFICE IN REFERENCE TO A PHYSICIAN CONSULT. I SPOKE WITH DEEPALI AT 1423 HRS.
[2022-07-30 15:49] LABS: HEMATOCRIT 26.2 % (39.0-50.0); IMMATURE GRANULOCYTES 0.2 % (0.0-5.0); LYMPH% 3.5 % (15-41); MEAN CORPUSCULAR HGB 30.9 pG CALC (26.0-32.0); MEAN CORPUSCULAR HGB CONC 32.4 g/dL CAL (32.0-36.0); MONO% 1.8 % (2-13); NEUT# 5.39 thou/uL (1.82-7.42); NEUT% 94.5 % (42-76); RED BLOOD COUNT 2.75 mill/uL (4.70-6.10); RED CELL DISTRI WIDTH 14.5 % (11.5-15.5)
--- NOTE | 2022-07-30 16:34 | NUR ---
PATIENT SITTING UP IN BED. RESPS ARE EVEN AND UNLABORED. CALL LIGHT IN REACH. WILL CONT TO MONITOR.
[2022-07-30 16:45] VITALS: BP 127/53
[2022-07-30 16:45] LABS: HEMOGLOBIN 8.5 g/dl (14.0-18.0); MEAN CELL VOLUME 95.3 fL CALC (80.0-100.0)
--- NOTE | 2022-07-30 16:45 | NUR ---
PATIENT WITH OXYGEN LEVEL AT 88% RA. A 2L OXYGEN CANNULA IS GIVEN. BUT DOESN'T PROGRESS. OXYGEN CANNULA AT 4L, ACHIEVES THAT THE PATIENT BEGINS TO SATURATE 95%. DR. KIDD IS NOTIFY SEE AND EVALUATES PATIENT AND ISSUES ORDER. SAFETY AND FALL PRECAUTIONS IN PLACE. CALL LIGHT IN PLACE.
[2022-07-30 18:31] VITALS: BP 96/47
--- NOTE | 2022-07-30 20:13 | NUR ---
RECEIVED REPORT FROM DAYSHIFT NURSE. PT NOTED LAYING FOWLERS IN BED. PT COMPLAINED OF PAIN 9 OUT OF 10 IN BACK AT THIS TIME. LEFT FOOT NOTED WITH SURGICAL WOUND, NON DRESSED FOUL ODOR AND BLACK COLORING TO INCISION AREA. BELOW THE KNEE AMPUTATION NOTED WITH RT LEG. EDUCATED PT ON PLAN OF CARE FOR TONIGHT. SAFETY PRECAUTIONS IN PLACE AND CALL LIGHT WITHIN REACH. WILL FOLLOW UP ON PAIN WITH MEDICATION PER EMAR.
[2022-07-31] VITALS (15 sets, daily range): BP systolic 91–153; BP diastolic 41–87
--- NOTE | 2022-07-31 | NUR ---
PT NOTED LAYING BACK IN BED. HAS BEEN DOZING IN AND OUT OF SLEEP. NO S/S OF DISTRESS AT THIS TIME. CALL LIGHT WITHIN REACH AND SAFETY PRECAUTIONS IN PLACE.
--- NOTE | 2022-07-31 04:00 | NUR ---
PT LAYING FOWLERS IN BED, SLEEPING. NASAL CANNULA IN PLACE. NO S/S OF DISTRESS. CALL LIGHT WITHIN REACH AND SAFETY PRECAUTIONS IN PLACE.
--- NOTE | 2022-07-31 05:18 | NUR ---
PT HAS NOT VOIDED THROUGHOUT NIGHT. PT DENIES FEELING THE URGE OR FREQUENCY TO URINATE. PALPATED BLADDER AND IT IS DISTENDED. BLADDER SCAN COMPLETED SHOWING 850ML. INFORMED PHYSICIAN RETAIL WAREHOUSE ASSOCIATE AND ORDERED STRAIGHT CATH TO DRAIN BLADDER. PT HAS REFUSED CATHETER AT THIS TIME. EDUCATED TO PT THE IMPORTANCE OF EMPTYING THE BLADDER AND COMPLICATION OF DISTENDED FULL BLADDER. PT STILL REFUSES CATHETER AT THIS TIME.
--- NOTE | 2022-07-31 05:47 | NUR ---
PT BEGAN FEELING HEAVINESS IN BLADDER AND COULD NOT URINATE ON HIS OWN. PT GAVE CONSENT TO STRAIGHT CATH. 700CC OUTPUT OF BONY URINE. PT STATED FEELING RELIEVED. CALL LIGHT WITHIN REACH AND SAFETY PRECAUTIONS IN PLACE.
[2022-07-31 06:00] LABS: ALBUMIN 2.9 g/dL (3.2-5.0); CARBON DIOXIDE 18 mmol/l (22-30); CHLORIDE 104 mmol/l (95-108); CREATININE 4.7 mg/dL (0.7-1.3); GFR FOR AFR.AMER. 16 ML/MIN (>=60 (CALC)); GFR OTHER RACES 13 ML/MIN (>=60 (CALC)); POTASSIUM 3.4 mmol/l (3.5-5.1); SODIUM 134 mmol/l (137-146)
[2022-07-31 06:12] LABS: HEMATOCRIT 23.3 % (39.0-50.0); HEMOGLOBIN 7.5 g/dl (14.0-18.0); MEAN CELL VOLUME 97.5 fL CALC (80.0-100.0); MEAN CORPUSCULAR HGB 31.4 pG CALC (26.0-32.0); MEAN CORPUSCULAR HGB CONC 32.2 g/dL CAL (32.0-36.0); RED BLOOD COUNT 2.39 mill/uL (4.70-6.10); RED CELL DISTRI WIDTH 14.8 % (11.5-15.5)
[2022-07-31 06:20] LABS: BUN 97 mg/dL (9-20)
--- NOTE | 2022-07-31 07:50 | NUR ---
PT RESTING IN LOW FOWLERS POSITION. A/OX3 ASSESSMENT AND VS COMPLETED. PT TO RECIEVED BLOOD TODAY. PT HEART RHYTHM NORM. RESPIRAITONS ON 4L NC.PT COMPLAINS OF PAIN TO BE MEDICATED PER EMAR. ALL SAFETY PRECAUTIONS IN PLACE WITH CALL LIGHT INREACH.
[2022-07-31 08:37] LABS: BILIRUBIN, TOTAL 0.7 mg/dL (0.2-1.3); POTASSIUM 3.4 mmol/l (3.5-5.1); TOTAL PROTEIN 5.7 g/dL (6.3-8.2)
--- NOTE | 2022-07-31 10:35 | NUR ---
S: GAMA VELAZCO is a 57 M who presents with acute renal faiure and possible surgical site infection of the left foot. He has a history of T2DM, dyslipidemia, HTN, HLD, WV x 2, L BBB, cancer, heart disease, depression, CHF, neuropathy, MRSA. All medications in patient's chart were reviewed. O: VS: BP 146/87, P 93, RR 20,T 97.3 W 113kg, HT 69 in, Scr= 4.7,CrCl= 21.5 ml/min A: Blood culture is pending. Wound culture is pending. P: Patient is on cefepime 1g IV q12hrs. Vancomycin ordered for pharmacy to dose. Start Vancomycin 1250 mg dose IV Q36H. Vancomycin trough is drawn before the 3rd dose on 08/03/22 at 1130. Vancomycin goal trough is between 10-15 mcg/ml. Pharmacy will follow and or advise on antibiotics use as needed.
--- NOTE | 2022-07-31 12:12 | NUR ---
PT URINATED 500 OUPUT RETIANING 136 PER BLADDER SCAN NEED OF URINE SAMPLE. PT AWARE NEED OF CONSENT TO BEOBTIANED.
--- NOTE | 2022-07-31 14:05 | NUR ---
PT STATED HE DOES NOT FEEL WELL. PT SWEATING ORAL TEMP 102.6 PT WAS ALREADY WAS PROVIDED TYLENOL, COLD PACKS APPLIED TEMPT ORAL DOWN TO 99.3 PT ALREADY RECIEVED ABX AND VANCO WAS CURRENTLY RUNNING . PT BLOOD SUGAR CHECKED 68. PT GIVEN ORANGE JUICE. APPLE JUICE X2 WELL. PT PROVIDED WITH CRACKERS PT DENIES PT STATED PERFFERED FRUIT. PT BS TO BE RECHECKED.
--- NOTE | 2022-07-31 14:46 | NUR ---
CALL FROM LAB WITH CRITICAL LAB VALUE OF LACTIC ACID 2.3 HEMALATHA, FLOUR TESTER MADE AWARE. PER FLOUR TESTER PATIENT IS ALREADY ON FLUIDS AND HAS CHF SO AT THIS TIME DOES NOT WANT TO GIVE ANY FLUID BOLUS. TEMPATURE IS DOWN TO 99.5 FROM 102.6. PATIENT BLOOD CULTURES ALREADY DRAWN PRIOR TO ANTIBIOTICS. PATIENT IS TO GET 1 UNIT OF PRBC BUT PER HEMALATHA, FLOUR TESTER HOLD UNTIL PATIENT TEMPATURE IS STEADY UNDER 99.0F. HEMALATHA, FLOUR TESTER IS ALSO CHANGING TYLENOL FROM Q6 HOURS TO Q4 HOURS NEEDED. PATIENT NURSE MADE AWARE OF THIS EVENT AND NEW CHANGES.
--- NOTE | 2022-07-31 16:15 | NUR ---
GOT CALL FROM LAB TO INFORM THAT LACTIC ACID IS NOW 2.4. HEMALATHA [employer] EQUIPMENT MECHANIC SUPERVISOR AND NURSE MADE AWARE. PER HEMALATHA OIL FIELD EQUIPMENT MECHANIC SUPERVISOR SHE WILL PUT IN ORDERS FOR PATIENT. SEE ORDERS.
--- NOTE | 2022-07-31 18:20 | NUR ---
PT CONSENT OBTAINED AT 1500. PT TEMP DROPPED TO 98.3 ABLE TO PROVIDE BLOOD TRANSFUSION. PT UN ABLE TO BEGIN TRANSFUISON AT THE MOMENT PER IV FOUND DISLOGGED. RN TO TRY FOR NEW IV .
--- NOTE | 2022-07-31 19:48 | NUR ---
PT BLOOD TRANSFUSION STARTED LATE OKAY TO START GIVEN BY [facility]. PT FORGETFULL FULL REPORT PROVIDED FOR NIGHT NURSE. ALL SAFETY PRECAUTIONS IN PLACE.
--- NOTE | 2022-07-31 22:29 | NUR ---
PT RECEIVED 1 UINTS OF RBC, VITALS STABLE TOLERATED WELL, CALL LIGHT WITHIN REACHED WILL CONT TO MONITOR
[2022-08-01] VITALS (8 sets, daily range): BP systolic 94–149; BP diastolic 46–71
--- NOTE | 2022-08-01 02:24 | NUR ---
PT AX3 VITALS STABLE, TOLRATED MEDS WELL, MED PAIN GIVEN PER ORDERED, CALL LIGHT WITHIN REACHED, WILL CONT TO MONITOR
[2022-08-01 05:25] LABS: URINE BILIRUBIN - DIPSTICK NEGATIVE (NEGATIVE); URINE BLOOD DIPSTICK NEGATIVE (NEGATIVE); URINE COLOR YELLOW; URINE GLUCOSE - DIPSTICK NEGATIVE (NEGATIVE); URINE KETONE NEGATIVE (NEGATIVE); URINE LEUK ESTERASE NEGATIVE (NEGATIVE); URINE PROTEIN - DIPSTICK 30 mg/dL (NEG-TRACE); URINE UROBILINOGEN - DIPSTICK 0.2 E.U./dL (0.2)
[2022-08-01 05:27] LABS: URINE NITRITE - DIPSTICK NEGATIVE (Negative)
[2022-08-01 05:32] LABS: URINE BACTERIA MODERATE hpf; URINE SQUAMOUS EPITHELIAL CELL FEW EPI/hpf (0-FEW)
[2022-08-01 05:54] LABS: BASO% 0.2 % (0-3); HEMOGLOBIN 8.3 g/dl (14.0-18.0); IMMATURE GRANULOCYTES 1.8 % (0.0-5.0); LYMPH% 6.9 % (15-41); MEAN CELL VOLUME 94.5 fL CALC (80.0-100.0); MEAN CORPUSCULAR HGB 30.2 pG CALC (26.0-32.0); MEAN CORPUSCULAR HGB CONC 31.9 g/dL CAL (32.0-36.0); MONO% 4.8 % (2-13); NEUT# 7.03 thou/uL (1.82-7.42); NEUT% 86.3 % (42-76); RED BLOOD COUNT 2.75 mill/uL (4.70-6.10); RED CELL DISTRI WIDTH 17.4 % (11.5-15.5)
[2022-08-01 06:04] LABS: ALBUMIN 2.9 g/dL (3.2-5.0); POTASSIUM 3.9 mmol/l (3.5-5.1); TOTAL PROTEIN 5.7 g/dL (6.3-8.2)
[2022-08-01 06:12] LABS: BILIRUBIN, TOTAL 1.2 mg/dL (0.2-1.3)
--- NOTE | 2022-08-01 07:45 | NUR ---
PT WAS STAIGHT CATH 600CC URINE OUTPUT , DIDIER GUEVARA FOR ORDER
--- NOTE | 2022-08-01 08:00 | NUR ---
PT RESTING IN BED. ASSESSMENT COPLETED. UPDATED PT IN CURRENT PLAN OF CARE. PT INIDCTAED UNDERSTANDING. PT COMPLAINS OF PAIN IN LEFT FOOT. REPOSITONED. FALL/SAFETY PRECAUTION IN PLACE. CALL LIGHT WITHIN REACH
--- NOTE | 2022-08-01 12:55 | NUR ---
PT EAITNG LUNCH. PT COMPLAINS OF PAIN IN ABD AREA. MEDIACTED SEE EMAR. FALL/SAFTEY PRECAUTION IN PLACE. CALL LIGHT WITHIN REACH.
--- NOTE | 2022-08-01 16:20 | NUR ---
PT RESTING WATCHIBG TV. NO DISTRESS NOTED. FALL/SAFETY PRECAUTION IN PLACE. CALL LIGHT WITHIN REACH
--- NOTE | 2022-08-01 16:31 | NUR ---
PRELIMINARY BLOOD CULTURES SHOW 4/4 GRAM (-) RODS.CALLED TO [facility] NO NEW ORDERS
--- NOTE | 2022-08-01 20:44 | NUR ---
PT RESTING C/O NO PAIN OR WITH NO DISTRESS
--- NOTE | 2022-08-01 23:53 | NUR ---
PT TRANSFERED TO [facility] ALERT, VITALS STABLE
--- NOTE | 2022-08-02 13:45 | NUR ---
FINAL BLOOD CULTURE SHOWS PROTEUS MIRABILIS AND FINAL WOUND CULTURE SHOWS ENTEROCOCCUS FAECALIS + K. PNEUMONIAE. RESULTS FAXED TO [facility] NURSE [facility]ANG @ [phone].
== END 2022-08-01 23:57 | disposition short-term general hospital (02) | DRG 564 ==
LOC: ED 07:41 → ED-I 10:40 → ED 11:11 → MS2 11:12
PROVIDERS: Family Medicine; Internal Medicine Nephrology; Nurse Practitioner Family; ADMIT Internal Medicine; ATTEND Internal Medicine
PROC: 30233N1 Transfusion of Nonautologous Red Blood Cells into Peripheral Vein, Percutaneous Approach (ICD-10-PCS; principal; 2022-07-31)
DX: T87.44 Infection of amputation stump, left lower extremity (principal); A41.9 Sepsis, unspecified organism; N17.0 Acute kidney failure with tubular necrosis; K55.059 Acute (reversible) ischemia of intestine, part and extent unspecified; R65.20 Severe sepsis without septic shock; I13.0 Hypertensive heart and chronic kidney disease with heart failure and stage 1 through stage 4 chronic kidney disease, or unspecified chronic kidney disease; I50.32 Chronic diastolic (congestive) heart failure; E87.1 Hypo-osmolality and hyponatremia; E87.20 Acidosis, unspecified; E86.9 Volume depletion, unspecified; T87.81 Dehiscence of amputation stump; E11.22 Type 2 diabetes mellitus with diabetic chronic kidney disease; N18.30 Chronic kidney disease, stage 3 unspecified; E11.42 Type 2 diabetes mellitus with diabetic polyneuropathy; E11.51 Type 2 diabetes mellitus with diabetic peripheral angiopathy without gangrene; E78.5 Hyperlipidemia, unspecified; F32.A Depression, unspecified; F17.200 Nicotine dependence, unspecified, uncomplicated; I25.2 Old myocardial infarction; Y83.6 Removal of other organ (partial) (total) as the cause of abnormal reaction of the patient, or of later complication, without mention of misadventure at the time of the procedure; Z79.4 Long term (current) use of insulin; Z85.038 Personal history of other malignant neoplasm of large intestine; Z89.432 Acquired absence of left foot; Z20.822 Contact with and (suspected) exposure to COVID-19; D63.1 Anemia in chronic kidney disease; Z87.442 Personal history of urinary calculi; Z89.511 Acquired absence of right leg below knee; Z86.14 Personal history of Methicillin resistant Staphylococcus aureus infection; I25.10 Atherosclerotic heart disease of native coronary artery without angina pectoris; B95.2 Enterococcus as the cause of diseases classified elsewhere; B96.1 Klebsiella pneumoniae [K. pneumoniae] as the cause of diseases classified elsewhere; I95.9 Hypotension, unspecified
CPT/HCPCS: J0692; J1756; J3370; P9016; Q5106 EC; S0164

== ENCOUNTER 2022-08-11 14:48 | Inpatient (IN) | payer MEDICARE, OTHER ==
[~2022-08-11] VITALS: Ht 175.3 cm; Wt 98.9 kg
[2022-08-11 14:48] VITALS: BP 139/61
[2022-08-11 18:09] VITALS: BP 170/64
[2022-08-11] MEDS ORDERED: PROAIR HFA IN (18:23)
[2022-08-11] MEDS ORDERED: BASAGLAR TEM100 UNIT SC (18:25)
[2022-08-11] MEDS ORDERED: FARXIGA10 MG PO (18:33)
[2022-08-11] MEDS ORDERED: EQL IRON SUPPL325 M1 PO (19:12)
[2022-08-11] MEDS ORDERED: HYDRALAZINE HY100 MG PO (19:13)
[2022-08-11] MEDS ORDERED: NOVOLOG100 UNIT SC (19:15)
[2022-08-11] MEDS ORDERED: METHOCARBAMOL500 MG PO (19:16)
[2022-08-11] MEDS ORDERED: [UNRECOGNIZED DRUG - OTHER] TOP (19:17)
[2022-08-11] MEDS ORDERED: NIFEDIPINE60 MG PO (19:17)
[2022-08-11] MEDS ORDERED: SODIUM BICARBI650 MG PO (19:18)
[2022-08-11] MEDS ORDERED: PROTONIX40 M2 PO (19:18)
[2022-08-11] MEDS ORDERED: LIPITOR80 M1 PO (19:20)
[2022-08-11] MEDS ORDERED: D350 MCG PO (19:20)
[2022-08-11] MEDS ORDERED: BUMETANIDE1 MG PO (19:21)
[2022-08-11] MEDS ORDERED: MAXIPIME1 GM IV (19:22)
[2022-08-11] MEDS ORDERED: DAPTOMYCIN500 MG IV (19:23)
[2022-08-11] MEDS ORDERED: HYDROCO/APAP1 TA9 PO (19:24)
[2022-08-11] MEDS ORDERED: ATIVAN1 MG PO (19:25)
[2022-08-11] MEDS ORDERED: DICYCLOMINE10 MG PO (19:30)
[2022-08-11] MEDS ORDERED: ZOFRAN4 MG/TAB PO (19:31)
[2022-08-11] MEDS ORDERED: EQL ANTACID U1000 MG PO (19:33)
[2022-08-11 23:15] VITALS: BP 163/53
[2022-08-12] VITALS (9 sets, daily range): BP systolic 111–162; BP diastolic 49–65
[2022-08-12 05:49] LABS: HEMATOCRIT 20.3 % (39.0-50.0); MEAN CELL VOLUME 93.5 fL CALC (80.0-100.0); RED BLOOD COUNT 2.17 mill/uL (4.70-6.10); RED CELL DISTRI WIDTH 16.8 % (11.5-15.5)
[2022-08-12 05:57] LABS: ALBUMIN 2.9 g/dL (3.2-5.0); MAGNESIUM 1.6 mg/dL (1.6-2.3); POTASSIUM 3.3 mmol/l (3.5-5.1); TOTAL PROTEIN 6.4 g/dL (6.3-8.2)
[2022-08-12 06:16] LABS: BILIRUBIN, TOTAL 1.7 mg/dL (0.2-1.3); CREATININE 3.9 mg/dL (0.7-1.3)
[2022-08-12 06:19] LABS: HEMOGLOBIN 6.5 g/dl (14.0-18.0)
[2022-08-13] VITALS (10 sets, daily range): BP systolic 111–142; BP diastolic 48–59
[2022-08-13 05:55] LABS: EOS% 0.8 % (0-8); HEMATOCRIT 21.1 % (39.0-50.0); IMMATURE GRANULOCYTES 0.2 % (0.0-5.0); LYMPH% 8.5 % (15-41); MEAN CELL VOLUME 96.8 fL CALC (80.0-100.0); MEAN CORPUSCULAR HGB 29.8 pG CALC (26.0-32.0); MEAN CORPUSCULAR HGB CONC 30.8 g/dL CAL (32.0-36.0); MONO% 6.5 % (2-13); NEUT# 7.98 thou/uL (1.82-7.42); RED BLOOD COUNT 2.18 mill/uL (4.70-6.10); RED CELL DISTRI WIDTH 16.6 % (11.5-15.5)
[2022-08-13 06:22] LABS: HEMOGLOBIN 6.5 g/dl (14.0-18.0)
[2022-08-13 06:27] LABS: BILIRUBIN, TOTAL 1.2 mg/dL (0.2-1.3); CREATININE 3.7 mg/dL (0.7-1.3); POTASSIUM 3.2 mmol/l (3.5-5.1); TOTAL PROTEIN 6.4 g/dL (6.3-8.2)
[2022-08-14] VITALS (10 sets, daily range): BP systolic 131–169; BP diastolic 57–69
[2022-08-14 07:50] LABS: EOS% 0.4 % (0-8); HEMATOCRIT 22.4 % (39.0-50.0); HEMOGLOBIN 7.1 g/dl (14.0-18.0); IMMATURE GRANULOCYTES 0.2 % (0.0-5.0); LYMPH% 7.3 % (15-41); MEAN CELL VOLUME 95.7 fL CALC (80.0-100.0); MEAN CORPUSCULAR HGB 30.3 pG CALC (26.0-32.0); MEAN CORPUSCULAR HGB CONC 31.7 g/dL CAL (32.0-36.0); MONO% 5.6 % (2-13); NEUT# 8.05 thou/uL (1.82-7.42); NEUT% 85.5 % (42-76); RED BLOOD COUNT 2.34 mill/uL (4.70-6.10); RED CELL DISTRI WIDTH 16.7 % (11.5-15.5)
[2022-08-14 08:12] LABS: ALBUMIN 3.3 g/dL (3.2-5.0); BILIRUBIN, TOTAL 1.3 mg/dL (0.2-1.3); CREATININE 3.8 mg/dL (0.7-1.3); POTASSIUM 3.4 mmol/l (3.5-5.1)
[2022-08-15] VITALS (7 sets, daily range): BP systolic 124–153; BP diastolic 55–70
[2022-08-15 05:39] LABS: BASO% 0.8 % (0-3); EOS% 0.8 % (0-8); HEMATOCRIT 23.9 % (39.0-50.0); HEMOGLOBIN 7.6 g/dl (14.0-18.0); IMMATURE GRANULOCYTES 0.2 % (0.0-5.0); MEAN CELL VOLUME 94.1 fL CALC (80.0-100.0); MEAN CORPUSCULAR HGB 29.9 pG CALC (26.0-32.0); MEAN CORPUSCULAR HGB CONC 31.8 g/dL CAL (32.0-36.0); MONO% 6.8 % (2-13); NEUT# 8.75 thou/uL (1.82-7.42); NEUT% 84.4 % (42-76); RED BLOOD COUNT 2.54 mill/uL (4.70-6.10)
[2022-08-15 05:56] LABS: BILIRUBIN, TOTAL 1.1 mg/dL (0.2-1.3); CREATININE 3.4 mg/dL (0.7-1.3); POTASSIUM 3.4 mmol/l (3.5-5.1); TOTAL PROTEIN 6.1 g/dL (6.3-8.2)
[2022-08-15 10:22] LABS: URINE BILIRUBIN - DIPSTICK NEGATIVE (NEGATIVE); URINE BLOOD DIPSTICK TRACE-INTACT (NEGATIVE); URINE COLOR YELLOW; URINE GLUCOSE - DIPSTICK NEGATIVE (NEGATIVE); URINE KETONE NEGATIVE (NEGATIVE); URINE LEUK ESTERASE NEGATIVE (Negative); URINE NITRITE - DIPSTICK NEGATIVE (Negative); URINE PROTEIN - DIPSTICK 30 mg/dL (NEG-TRACE); URINE SPECIFIC GRAVITY 1.015; URINE UROBILINOGEN - DIPSTICK 0.2 E.U./dL (0.2)
[2022-08-15 10:23] LABS: URINE CLARITY SL CLOUDY
[2022-08-15 10:24] LABS: URINE EPITHELIAL CELLS FEW EPI/hpf (0-FEW); URINE MUCUS MANY hpf (NONE-FEW); URINE RBC 0-2 RBC/hpf (0-5)
[2022-08-16] VITALS (9 sets, daily range): BP systolic 130–171; BP diastolic 57–78
[2022-08-16 07:05] LABS: ALBUMIN 3.1 g/dL (3.2-5.0); CREATININE 2.9 mg/dL (0.7-1.3); MAGNESIUM 1.4 mg/dL (1.6-2.3); POTASSIUM 3.4 mmol/l (3.5-5.1)
[2022-08-16 07:06] LABS: BASO% 0.8 % (0-3); EOS% 0.9 % (0-8); HEMATOCRIT 24.7 % (39.0-50.0); HEMOGLOBIN 7.9 g/dl (14.0-18.0); IMMATURE GRANULOCYTES 0.3 % (0.0-5.0); LYMPH% 6.4 % (15-41); MEAN CELL VOLUME 95.7 fL CALC (80.0-100.0); MEAN CORPUSCULAR HGB 30.6 pG CALC (26.0-32.0); MONO% 6.4 % (2-13); NEUT# 7.85 thou/uL (1.82-7.42); NEUT% 85.2 % (42-76); RED BLOOD COUNT 2.58 mill/uL (4.70-6.10); RED CELL DISTRI WIDTH 17.3 % (11.5-15.5)
[2022-08-17 04:00] VITALS: BP 154/62
[2022-08-17 04:06] VITALS: BP 154/62
[2022-08-17 05:44] LABS: CREATININE 2.6 mg/dL (0.7-1.3); MAGNESIUM 1.3 mg/dL (1.6-2.3); POTASSIUM 3.5 mmol/l (3.5-5.1)
[2022-08-17 05:45] LABS: BASO% 0.7 % (0-3); EOS% 0.6 % (0-8); HEMATOCRIT 24.1 % (39.0-50.0); HEMOGLOBIN 7.6 g/dl (14.0-18.0); IMMATURE GRANULOCYTES 0.3 % (0.0-5.0); LYMPH% 6.9 % (15-41); MEAN CELL VOLUME 96.4 fL CALC (80.0-100.0); MEAN CORPUSCULAR HGB 30.4 pG CALC (26.0-32.0); MEAN CORPUSCULAR HGB CONC 31.5 g/dL CAL (32.0-36.0); MONO% 7.8 % (2-13); NEUT# 6.09 thou/uL (1.82-7.42); NEUT% 83.7 % (42-76); RED BLOOD COUNT 2.5 mill/uL (4.70-6.10); RED CELL DISTRI WIDTH 17.2 % (11.5-15.5)
[2022-08-17 07:41] VITALS: BP 174/69
[2022-08-17 15:13] VITALS: BP 126/56
[2022-08-17 19:11] VITALS: BP 121/58
[2022-08-17 23:47] VITALS: BP 138/59
[2022-08-18] VITALS (7 sets, daily range): BP systolic 104–179; BP diastolic 60–82
[2022-08-18 05:26] LABS: BASO% 1.3 % (0-3); EOS% 1.1 % (0-8); HEMATOCRIT 22.5 % (39.0-50.0); HEMOGLOBIN 7.1 g/dl (14.0-18.0); IMMATURE GRANULOCYTES 0.2 % (0.0-5.0); LYMPH% 7.6 % (15-41); MEAN CELL VOLUME 96.2 fL CALC (80.0-100.0); MEAN CORPUSCULAR HGB 30.3 pG CALC (26.0-32.0); MEAN CORPUSCULAR HGB CONC 31.6 g/dL CAL (32.0-36.0); MONO% 7.7 % (2-13); NEUT% 82.1 % (42-76); RED BLOOD COUNT 2.34 mill/uL (4.70-6.10); RED CELL DISTRI WIDTH 16.8 % (11.5-15.5)
[2022-08-18 05:44] LABS: CREATININE 2.5 mg/dL (0.7-1.3); MAGNESIUM 1.3 mg/dL (1.6-2.3); POTASSIUM 4.1 mmol/l (3.5-5.1)
[2022-08-19] VITALS (8 sets, daily range): BP systolic 153–215; BP diastolic 63–88
[2022-08-19 05:36] LABS: EOS% 1.1 % (0-8); HEMATOCRIT 24.6 % (39.0-50.0); HEMOGLOBIN 7.8 g/dl (14.0-18.0); IMMATURE GRANULOCYTES 0.2 % (0.0-5.0); LYMPH% 6.2 % (15-41); MEAN CELL VOLUME 94.6 fL CALC (80.0-100.0); MEAN CORPUSCULAR HGB CONC 31.7 g/dL CAL (32.0-36.0); MONO% 7.2 % (2-13); NEUT# 7.92 thou/uL (1.82-7.42); NEUT% 84.3 % (42-76); RED BLOOD COUNT 2.6 mill/uL (4.70-6.10); RED CELL DISTRI WIDTH 17.7 % (11.5-15.5)
[2022-08-19 05:53] LABS: ALBUMIN 3.3 g/dL (3.2-5.0); BILIRUBIN, TOTAL 0.8 mg/dL (0.2-1.3); CREATININE 2.4 mg/dL (0.7-1.3); MAGNESIUM 1.4 mg/dL (1.6-2.3); POTASSIUM 4.2 mmol/l (3.5-5.1); TOTAL PROTEIN 7.1 g/dL (6.3-8.2)
[2022-08-20 02:31] VITALS: BP 174/70
[2022-08-20 05:49] LABS: BASO% 0.7 % (0-3); EOS% 1.5 % (0-8); HEMATOCRIT 24.4 % (39.0-50.0); HEMOGLOBIN 7.6 g/dl (14.0-18.0); IMMATURE GRANULOCYTES 0.4 % (0.0-5.0); LYMPH% 6.7 % (15-41); MEAN CELL VOLUME 96.1 fL CALC (80.0-100.0); MEAN CORPUSCULAR HGB 29.9 pG CALC (26.0-32.0); MEAN CORPUSCULAR HGB CONC 31.1 g/dL CAL (32.0-36.0); MONO% 8.2 % (2-13); NEUT% 82.5 % (42-76); RED BLOOD COUNT 2.54 mill/uL (4.70-6.10); RED CELL DISTRI WIDTH 17.1 % (11.5-15.5)
[2022-08-20 06:07] LABS: ALBUMIN 3.4 g/dL (3.2-5.0); BILIRUBIN, TOTAL 0.8 mg/dL (0.2-1.3); CREATININE 2.2 mg/dL (0.7-1.3); MAGNESIUM 1.7 mg/dL (1.6-2.3); POTASSIUM 4.6 mmol/l (3.5-5.1); TOTAL PROTEIN 7.1 g/dL (6.3-8.2)
[2022-08-20 06:48] VITALS: BP 188/81
[2022-08-20 10:51] VITALS: BP 179/69
[2022-08-20 16:19] VITALS: BP 168/87
[2022-08-20 16:23] VITALS: BP 186/79
[2022-08-20 20:17] VITALS: BP 148/64
[2022-08-21 00:04] VITALS: BP 138/62
[2022-08-21 04:28] VITALS: BP 158/73
[2022-08-21 06:22] LABS: BASO% 0.9 % (0-3); EOS% 2.4 % (0-8); HEMATOCRIT 24.7 % (39.0-50.0); HEMOGLOBIN 7.6 g/dl (14.0-18.0); IMMATURE GRANULOCYTES 0.4 % (0.0-5.0); LYMPH% 8.5 % (15-41); MEAN CELL VOLUME 97.2 fL CALC (80.0-100.0); MEAN CORPUSCULAR HGB 29.9 pG CALC (26.0-32.0); MEAN CORPUSCULAR HGB CONC 30.8 g/dL CAL (32.0-36.0); MONO% 6.8 % (2-13); NEUT# 7.23 thou/uL (1.82-7.42); RED BLOOD COUNT 2.54 mill/uL (4.70-6.10); RED CELL DISTRI WIDTH 16.7 % (11.5-15.5)
[2022-08-21 06:28] VITALS: BP 172/79
[2022-08-21 06:42] LABS: ALBUMIN 3.4 g/dL (3.2-5.0); BILIRUBIN, TOTAL 0.8 mg/dL (0.2-1.3); CREATININE 2.1 mg/dL (0.7-1.3); MAGNESIUM 1.7 mg/dL (1.6-2.3); POTASSIUM 4.7 mmol/l (3.5-5.1); TOTAL PROTEIN 7.2 g/dL (6.3-8.2)
[2022-08-21 10:31] LABS: INTERNATIONAL NORMALIZED RATIO 1.2 RATIO (0.7-1.3); PROTHROMBIN TIME 11.6 SECONDS (9.0-12.5)
[2022-08-21 10:32] LABS: C. DIFFICILE TOXIN A&B NEGATIVE (NEGATIVE)
[2022-08-21 10:38] VITALS: BP 145/77
[2022-08-21 15:48] VITALS: BP 139/70
[2022-08-22] VITALS (29 sets, daily range): BP systolic 117–203; BP diastolic 54–93
[2022-08-22 07:30] LABS: BASO% 0.7 % (0-3); EOS% 1.2 % (0-8); HEMATOCRIT 25.6 % (39.0-50.0); HEMOGLOBIN 7.8 g/dl (14.0-18.0); IMMATURE GRANULOCYTES 0.5 % (0.0-5.0); LYMPH% 4.2 % (15-41); MEAN CELL VOLUME 96.2 fL CALC (80.0-100.0); MEAN CORPUSCULAR HGB 29.3 pG CALC (26.0-32.0); MEAN CORPUSCULAR HGB CONC 30.5 g/dL CAL (32.0-36.0); MONO% 5.8 % (2-13); NEUT# 8.43 thou/uL (1.82-7.42); NEUT% 87.6 % (42-76); RED BLOOD COUNT 2.66 mill/uL (4.70-6.10); RED CELL DISTRI WIDTH 16.3 % (11.5-15.5)
[2022-08-22 08:11] LABS: ALBUMIN 3.5 g/dL (3.2-5.0); BILIRUBIN, TOTAL 0.9 mg/dL (0.2-1.3); CREATININE 1.9 mg/dL (0.7-1.3)
[2022-08-22 15:54] LABS: HEMATOCRIT 23.6 % (39.0-50.0); HEMOGLOBIN 7.3 g/dl (14.0-18.0)
[2022-08-23] VITALS (42 sets, daily range): BP systolic 125–194; BP diastolic 50–90
[2022-08-23 06:03] LABS: ALBUMIN 2.9 g/dL (3.2-5.0); BILIRUBIN, TOTAL 0.8 mg/dL (0.2-1.3); CREATININE 1.7 mg/dL (0.7-1.3); POTASSIUM 5.1 mmol/l (3.5-5.1); TOTAL PROTEIN 5.9 g/dL (6.3-8.2)
[2022-08-23 06:44] LABS: BASO% 0.6 % (0-3); EOS% 0.9 % (0-8); HEMATOCRIT 20.5 % (39.0-50.0); IMMATURE GRANULOCYTES 1.6 % (0.0-5.0); LYMPH% 6.5 % (15-41); MEAN CELL VOLUME 95.3 fL CALC (80.0-100.0); MEAN CORPUSCULAR HGB 29.3 pG CALC (26.0-32.0); MEAN CORPUSCULAR HGB CONC 30.7 g/dL CAL (32.0-36.0); MONO% 7.8 % (2-13); NEUT# 8.97 thou/uL (1.82-7.42); NEUT% 82.6 % (42-76); RED BLOOD COUNT 2.15 mill/uL (4.70-6.10); RED CELL DISTRI WIDTH 16.2 % (11.5-15.5)
[2022-08-23 07:01] LABS: HEMOGLOBIN 6.4 g/dl (14.0-18.0)
[2022-08-23 18:23] LABS: HEMATOCRIT 23.8 % (39.0-50.0); HEMOGLOBIN 7.5 g/dl (14.0-18.0)
[2022-08-24 03:41] VITALS: BP 179/76
[2022-08-24 05:26] LABS: HEMATOCRIT 23.5 % (39.0-50.0); HEMOGLOBIN 7.4 g/dl (14.0-18.0); MEAN CORPUSCULAR HGB 29.6 pG CALC (26.0-32.0); MEAN CORPUSCULAR HGB CONC 31.5 g/dL CAL (32.0-36.0); RED BLOOD COUNT 2.5 mill/uL (4.70-6.10); RED CELL DISTRI WIDTH 16.3 % (11.5-15.5)
[2022-08-24 06:05] LABS: BILIRUBIN, TOTAL 0.7 mg/dL (0.2-1.3); MAGNESIUM 1.5 mg/dL (1.6-2.3); TOTAL PROTEIN 6.2 g/dL (6.3-8.2)
[2022-08-24 06:40] VITALS: BP 182/87
[2022-08-24 08:19] VITALS: BP 189/79
[2022-08-24 10:48] VITALS: BP 158/67
[2022-08-24 16:30] VITALS: BP 171/70
[2022-08-24 19:41] VITALS: BP 176/60
[2022-08-25] VITALS (9 sets, daily range): BP systolic 118–204; BP diastolic 58–85
[2022-08-25 06:11] LABS: ALBUMIN 2.8 g/dL (3.2-5.0); CREATININE 1.9 mg/dL (0.7-1.3); POTASSIUM 4.8 mmol/l (3.5-5.1)
[2022-08-25 07:34] LABS: HEMATOCRIT 22.2 % (39.0-50.0); MEAN CELL VOLUME 93.7 fL CALC (80.0-100.0); MEAN CORPUSCULAR HGB 29.5 pG CALC (26.0-32.0); MEAN CORPUSCULAR HGB CONC 31.5 g/dL CAL (32.0-36.0); RED BLOOD COUNT 2.37 mill/uL (4.70-6.10); RED CELL DISTRI WIDTH 15.8 % (11.5-15.5)
[2022-08-26] VITALS (7 sets, daily range): BP systolic 126–198; BP diastolic 58–81
[2022-08-26 05:47] LABS: BASO% 0.7 % (0-3); EOS% 2.3 % (0-8); HEMATOCRIT 26.1 % (39.0-50.0); HEMOGLOBIN 8.4 g/dl (14.0-18.0); IMMATURE GRANULOCYTES 2.6 % (0.0-5.0); MEAN CELL VOLUME 92.6 fL CALC (80.0-100.0); MEAN CORPUSCULAR HGB 29.8 pG CALC (26.0-32.0); MEAN CORPUSCULAR HGB CONC 32.2 g/dL CAL (32.0-36.0); MONO% 7.3 % (2-13); NEUT# 8.59 thou/uL (1.82-7.42); NEUT% 81.1 % (42-76); RED BLOOD COUNT 2.82 mill/uL (4.70-6.10); RED CELL DISTRI WIDTH 15.7 % (11.5-15.5)
[2022-08-26 05:56] LABS: ALBUMIN 3.2 g/dL (3.2-5.0); BILIRUBIN, TOTAL 0.6 mg/dL (0.2-1.3); MAGNESIUM 1.5 mg/dL (1.6-2.3); TOTAL PROTEIN 6.9 g/dL (6.3-8.2)
[2022-08-27] VITALS (9 sets, daily range): BP systolic 126–206; BP diastolic 54–84
[2022-08-27 05:42] LABS: BASO% 0.7 % (0-3); EOS% 2.3 % (0-8); IMMATURE GRANULOCYTES 4.4 % (0.0-5.0); MEAN CELL VOLUME 92.3 fL CALC (80.0-100.0); MEAN CORPUSCULAR HGB 29.5 pG CALC (26.0-32.0); MONO% 6.7 % (2-13); NEUT# 8.25 thou/uL (1.82-7.42); NEUT% 80.9 % (42-76); RED BLOOD COUNT 2.71 mill/uL (4.70-6.10); RED CELL DISTRI WIDTH 15.6 % (11.5-15.5)
[2022-08-27 05:55] LABS: ALBUMIN 3.1 g/dL (3.2-5.0); BILIRUBIN, TOTAL 0.5 mg/dL (0.2-1.3); MAGNESIUM 1.4 mg/dL (1.6-2.3); POTASSIUM 4.7 mmol/l (3.5-5.1); TOTAL PROTEIN 6.7 g/dL (6.3-8.2)
[2022-08-28] VITALS (7 sets, daily range): BP systolic 118–196; BP diastolic 55–90
[2022-08-28 07:47] LABS: BASO% 0.4 % (0-3); EOS% 2.5 % (0-8); HEMOGLOBIN 9.2 g/dl (14.0-18.0); IMMATURE GRANULOCYTES 3.2 % (0.0-5.0); LYMPH% 5.5 % (15-41); MEAN CELL VOLUME 91.5 fL CALC (80.0-100.0); MEAN CORPUSCULAR HGB CONC 31.7 g/dL CAL (32.0-36.0); MONO% 5.7 % (2-13); NEUT# 8.76 thou/uL (1.82-7.42); NEUT% 82.7 % (42-76); RED BLOOD COUNT 3.17 mill/uL (4.70-6.10); RED CELL DISTRI WIDTH 15.3 % (11.5-15.5)
[2022-08-28 08:03] LABS: ALBUMIN 3.5 g/dL (3.2-5.0); BILIRUBIN, TOTAL 0.6 mg/dL (0.2-1.3); MAGNESIUM 1.7 mg/dL (1.6-2.3); TOTAL PROTEIN 7.7 g/dL (6.3-8.2)
[2022-08-29 00:06] VITALS: BP 176/70
[2022-08-29 04:16] VITALS: BP 179/68
[2022-08-29 05:53] LABS: BASO% 0.4 % (0-3); EOS% 2.4 % (0-8); HEMATOCRIT 25.3 % (39.0-50.0); HEMOGLOBIN 8.2 g/dl (14.0-18.0); IMMATURE GRANULOCYTES 1.2 % (0.0-5.0); LYMPH% 6.3 % (15-41); MEAN CORPUSCULAR HGB 29.8 pG CALC (26.0-32.0); MEAN CORPUSCULAR HGB CONC 32.4 g/dL CAL (32.0-36.0); MONO% 6.8 % (2-13); NEUT# 7.87 thou/uL (1.82-7.42); NEUT% 82.9 % (42-76); RED BLOOD COUNT 2.75 mill/uL (4.70-6.10)
[2022-08-29 06:09] LABS: ALBUMIN 2.9 g/dL (3.2-5.0); BILIRUBIN, TOTAL 0.5 mg/dL (0.2-1.3); POTASSIUM 4.9 mmol/l (3.5-5.1)
[2022-08-29 06:11] VITALS: BP 199/82
[2022-08-29 06:11] LABS: TOTAL PROTEIN 6.1 g/dL (6.3-8.2)
[2022-08-29 11:13] VITALS: BP 164/62
[2022-08-29 15:31] VITALS: BP 133/57
[2022-08-29 18:20] VITALS: BP 158/75
[2022-08-30] VITALS (7 sets, daily range): BP systolic 143–179; BP diastolic 63–84
[2022-08-30 05:40] LABS: HEMATOCRIT 23.7 % (39.0-50.0); HEMOGLOBIN 7.6 g/dl (14.0-18.0); MEAN CELL VOLUME 91.2 fL CALC (80.0-100.0); MEAN CORPUSCULAR HGB 29.2 pG CALC (26.0-32.0); MEAN CORPUSCULAR HGB CONC 32.1 g/dL CAL (32.0-36.0); RED BLOOD COUNT 2.6 mill/uL (4.70-6.10)
[2022-08-30 05:50] LABS: ALBUMIN 3.3 g/dL (3.2-5.0); BILIRUBIN, TOTAL 0.5 mg/dL (0.2-1.3); CREATININE 1.8 mg/dL (0.7-1.3); MAGNESIUM 1.5 mg/dL (1.6-2.3); POTASSIUM 4.4 mmol/l (3.5-5.1)
[2022-08-31] VITALS (10 sets, daily range): BP systolic 117–180; BP diastolic 48–79
[2022-08-31 05:18] LABS: BASO% 0.4 % (0-3); HEMATOCRIT 23.4 % (39.0-50.0); HEMOGLOBIN 7.4 g/dl (14.0-18.0); IMMATURE GRANULOCYTES 0.2 % (0.0-5.0); LYMPH% 13.7 % (15-41); MEAN CELL VOLUME 90.3 fL CALC (80.0-100.0); MEAN CORPUSCULAR HGB 28.6 pG CALC (26.0-32.0); MEAN CORPUSCULAR HGB CONC 31.6 g/dL CAL (32.0-36.0); MONO% 10.8 % (2-13); NEUT# 6.46 thou/uL (1.82-7.42); NEUT% 71.9 % (42-76); RED BLOOD COUNT 2.59 mill/uL (4.70-6.10); RED CELL DISTRI WIDTH 14.6 % (11.5-15.5)
[2022-08-31 05:48] LABS: ALBUMIN 3.1 g/dL (3.2-5.0); BILIRUBIN, TOTAL 0.3 mg/dL (0.2-1.3); CREATININE 1.7 mg/dL (0.7-1.3); POTASSIUM 4.3 mmol/l (3.5-5.1); TOTAL PROTEIN 6.7 g/dL (6.3-8.2)
[2022-09-01 00:05] VITALS: BP 132/61
[2022-09-01 04:21] VITALS: BP 135/58
[2022-09-01 05:19] LABS: BASO% 0.3 % (0-3); EOS% 2.8 % (0-8); HEMATOCRIT 22.7 % (39.0-50.0); HEMOGLOBIN 7.3 g/dl (14.0-18.0); IMMATURE GRANULOCYTES 0.2 % (0.0-5.0); MEAN CELL VOLUME 89.7 fL CALC (80.0-100.0); MEAN CORPUSCULAR HGB 28.9 pG CALC (26.0-32.0); MEAN CORPUSCULAR HGB CONC 32.2 g/dL CAL (32.0-36.0); MONO% 7.3 % (2-13); NEUT# 7.92 thou/uL (1.82-7.42); NEUT% 80.4 % (42-76); RED BLOOD COUNT 2.53 mill/uL (4.70-6.10); RED CELL DISTRI WIDTH 14.6 % (11.5-15.5)
[2022-09-01 05:34] LABS: ALBUMIN 3.2 g/dL (3.2-5.0); BILIRUBIN, TOTAL 0.4 mg/dL (0.2-1.3); POTASSIUM 4.2 mmol/l (3.5-5.1); TOTAL PROTEIN 6.8 g/dL (6.3-8.2)
[2022-09-01 06:46] VITALS: BP 153/59
[2022-09-01 10:10] VITALS: BP 144/59
[2022-09-01 15:01] VITALS: BP 122/54
[2022-09-01 19:35] VITALS: BP 146/60
[2022-09-02 00:39] VITALS: BP 155/70
[2022-09-02 04:26] VITALS: BP 161/62
[2022-09-02 05:22] LABS: HEMATOCRIT 22.9 % (39.0-50.0); HEMOGLOBIN 7.5 g/dl (14.0-18.0); MEAN CELL VOLUME 88.8 fL CALC (80.0-100.0); MEAN CORPUSCULAR HGB 29.1 pG CALC (26.0-32.0); MEAN CORPUSCULAR HGB CONC 32.8 g/dL CAL (32.0-36.0); RED BLOOD COUNT 2.58 mill/uL (4.70-6.10); RED CELL DISTRI WIDTH 14.5 % (11.5-15.5)
[2022-09-02 05:37] LABS: ALBUMIN 3.2 g/dL (3.2-5.0); BILIRUBIN, TOTAL 0.4 mg/dL (0.2-1.3); MAGNESIUM 1.6 mg/dL (1.6-2.3); POTASSIUM 4.2 mmol/l (3.5-5.1); TOTAL PROTEIN 6.8 g/dL (6.3-8.2)
[2022-09-02 06:15] VITALS: BP 158/68
[2022-09-02 10:30] VITALS: BP 173/73
[2022-09-02] MEDS ORDERED: HYDROCORT AC2.5% TOP (13:46)
[2022-09-02] MEDS ORDERED: BOUDREAUXS BUTT EX (13:46)
[2022-09-02] MEDS ORDERED: LEVEMIR100 UNIT SC (13:47)
[2022-09-02] MEDS ORDERED: CARAFATE1 GM PO (13:48)
[2022-09-02] MEDS ORDERED: METOLAZONE5 MG PO (13:49)
[2022-09-02] MEDS ORDERED: OXYCODONE15 MG PO (13:51)
[2022-09-02] MEDS ORDERED: LISINOPRIL20 M1 PO (13:51)
[2022-09-02 14:57] VITALS: BP 117/52
== END 2022-09-02 16:49 | DRG 474 ==
LOC: ICU 14:48 → MS2 14:48 → ICU 08-22 18:41 → MS2 08-23 20:45
PROVIDERS: Internal Medicine; Internal Medicine Nephrology; Nurse Practitioner Family; Surgery; ADMIT Internal Medicine; ATTEND Internal Medicine
PROC: 2Y41X5Z Packing of Nasal Region using Packing Material (ICD-10-PCS; principal; 2022-08-12)
PROC: 30233N1 Transfusion of Nonautologous Red Blood Cells into Peripheral Vein, Percutaneous Approach (ICD-10-PCS; 2022-08-12)
PROC: 30233N1 Transfusion of Nonautologous Red Blood Cells into Peripheral Vein, Percutaneous Approach (ICD-10-PCS; 2022-08-13)
PROC: 30233N1 Transfusion of Nonautologous Red Blood Cells into Peripheral Vein, Percutaneous Approach (ICD-10-PCS; 2022-08-14)
PROC: 30233N1 Transfusion of Nonautologous Red Blood Cells into Peripheral Vein, Percutaneous Approach (ICD-10-PCS; 2022-08-18)
PROC: 30233N1 Transfusion of Nonautologous Red Blood Cells into Peripheral Vein, Percutaneous Approach (ICD-10-PCS; 2022-08-22)
PROC: 0Y6J0Z1 Detachment at Left Lower Leg, High, Open Approach (ICD-10-PCS; 2022-08-22)
PROC: 30233N1 Transfusion of Nonautologous Red Blood Cells into Peripheral Vein, Percutaneous Approach (ICD-10-PCS; 2022-08-23)
PROC: 30233N1 Transfusion of Nonautologous Red Blood Cells into Peripheral Vein, Percutaneous Approach (ICD-10-PCS; 2022-08-25)
DX: T87.44 Infection of amputation stump, left lower extremity (principal); A41.89 Other specified sepsis; N17.0 Acute kidney failure with tubular necrosis; R65.20 Severe sepsis without septic shock; J96.21 Acute and chronic respiratory failure with hypoxia; I13.0 Hypertensive heart and chronic kidney disease with heart failure and stage 1 through stage 4 chronic kidney disease, or unspecified chronic kidney disease; K76.6 Portal hypertension; E87.1 Hypo-osmolality and hyponatremia; M86.8X7 Other osteomyelitis, ankle and foot; T87.81 Dehiscence of amputation stump; I50.22 Chronic systolic (congestive) heart failure; E11.22 Type 2 diabetes mellitus with diabetic chronic kidney disease; N18.30 Chronic kidney disease, stage 3 unspecified; D63.1 Anemia in chronic kidney disease; E86.9 Volume depletion, unspecified; E11.51 Type 2 diabetes mellitus with diabetic peripheral angiopathy without gangrene; E11.69 Type 2 diabetes mellitus with other specified complication; E11.42 Type 2 diabetes mellitus with diabetic polyneuropathy; R16.0 Hepatomegaly, not elsewhere classified; K20.90 Esophagitis, unspecified without bleeding; K31.89 Other diseases of stomach and duodenum; E87.6 Hypokalemia; E83.42 Hypomagnesemia; R04.0 Epistaxis; E78.5 Hyperlipidemia, unspecified; I25.2 Old myocardial infarction; N50.89 Other specified disorders of the male genital organs; F17.200 Nicotine dependence, unspecified, uncomplicated; B95.2 Enterococcus as the cause of diseases classified elsewhere; B96.1 Klebsiella pneumoniae [K. pneumoniae] as the cause of diseases classified elsewhere; Y83.5 Amputation of limb(s) as the cause of abnormal reaction of the patient, or of later complication, without mention of misadventure at the time of the procedure; Z89.432 Acquired absence of left foot; Z85.038 Personal history of other malignant neoplasm of large intestine; Z79.02 Long term (current) use of antithrombotics/antiplatelets; Z79.4 Long term (current) use of insulin; Z20.822 Contact with and (suspected) exposure to COVID-19
CPT/HCPCS: J0131; J0692; J0878; J3475; P9016; Q5106 EC; S0164

== ENCOUNTER 2023-01-08 10:59 | Emergency (ER) | payer MEDICARE, OTHER ==
[~2023-01-08] VITALS: Ht 175.3 cm; Wt 66.4 kg
[2023-01-08] VITALS (18 sets, daily range): BP systolic 106–148; BP diastolic 48–72
[~2023-01-08 10:59] MED LIST changes: +ATIVAN1 MG PO; +BASAGLAR TEM100 UNIT SC; +BOUDREAUXS BUTT EX; +CARAFATE1 GM PO; +D350 MCG PO; +DICYCLOMINE10 MG PO; +EQL ANTACID U1000 MG PO; +EQL IRON SUPPL325 M1 PO; +HYDRALAZINE HY100 MG PO; +HYDROCO/APAP1 TA9 PO; +HYDROCORT AC2.5% TOP; +LEVEMIR100 UNIT SC; +LIPITOR80 M1 PO; +MAXIPIME1 GM IV; +METHOCARBAMOL500 MG PO; +NOVOLOG100 UNIT SC; +OXYCODONE15 MG PO; +PROAIR HFA IN; +PROTONIX40 M2 PO; +SODIUM BICARBI650 MG PO; +ZOFRAN4 MG/TAB PO; +[UNRECOGNIZED DRUG - OTHER] TOP
[2023-01-08 11:23] LABS: BASO% 0.1 % (0-3); IMMATURE GRANULOCYTES 0.6 % (0.0-5.0); LYMPH% 3.3 % (15-41); MEAN CELL VOLUME 92.3 fL CALC (80.0-100.0); MEAN CORPUSCULAR HGB 30.7 pG CALC (26.0-32.0); MEAN CORPUSCULAR HGB CONC 33.2 g/dL CAL (32.0-36.0); MONO% 7.6 % (2-13); NEUT# 20.39 thou/uL (1.82-7.42); NEUT% 88.4 % (42-76); RED BLOOD COUNT 3.65 mill/uL (4.70-6.10); RED CELL DISTRI WIDTH 15.8 % (11.5-15.5)
[2023-01-08 11:34] LABS: HEMATOCRIT 33.7 % (39.0-50.0); HEMOGLOBIN 11.2 g/dl (14.0-18.0)
[2023-01-08 11:50] LABS: ALBUMIN 3.1 g/dL (3.2-5.0); POTASSIUM 3.6 mmol/l (3.5-5.1); TOTAL PROTEIN 7.4 g/dL (6.3-8.2)
[2023-01-08 11:54] LABS: BILIRUBIN, TOTAL 0.6 mg/dL (0.2-1.3); CREATININE 4.3 mg/dL (0.7-1.3)
[2023-01-08 14:48] LABS: URINE BILIRUBIN - DIPSTICK Negative (NEGATIVE); URINE BLOOD DIPSTICK Trace-lysed (NEGATIVE); URINE GLUCOSE - DIPSTICK 100 mg/dL (NEGATIVE); URINE KETONE Negative (NEGATIVE); URINE LEUK ESTERASE Negative (NEGATIVE); URINE NITRITE - DIPSTICK Negative (Negative); URINE PROTEIN - DIPSTICK >=300 mg/dL (NEG-TRACE); URINE UROBILINOGEN - DIPSTICK 0.2 E.U./dL (0.2)
[2023-01-08 14:49] LABS: URINE COLOR Yellow
[2023-01-08 14:50] LABS: URINE RBC 0-2 RBC/hpf (0-5)
[2023-01-08 14:51] LABS: URINE EPITHELIAL CELLS FEW EPI/hpf (0-FEW); URINE MUCUS MODERATE hpf (NONE-FEW)
[2023-01-08 16:01] LABS: CREATININE 3.5 mg/dL (0.7-1.3); POTASSIUM 3.6 mmol/l (3.5-5.1)
== END 2023-01-08 17:10 | disposition short-term general hospital (02) ==
LOC: ED 10:59
PROVIDERS: Family Medicine
PROC: 02HV33Z Insertion of Infusion Device into Superior Vena Cava, Percutaneous Approach (ICD-10-PCS; principal; 2023-01-08)
PROC: 0T9B70Z Drainage of Bladder with Drainage Device, Via Natural or Artificial Opening (ICD-10-PCS; 2023-01-08)
DX: T81.42XA Infection following a procedure, deep incisional surgical site, initial encounter (principal); K68.12 Psoas muscle abscess; M46.26 Osteomyelitis of vertebra, lumbar region; N17.9 Acute kidney failure, unspecified; E11.10 Type 2 diabetes mellitus with ketoacidosis without coma; E11.22 Type 2 diabetes mellitus with diabetic chronic kidney disease; I13.0 Hypertensive heart and chronic kidney disease with heart failure and stage 1 through stage 4 chronic kidney disease, or unspecified chronic kidney disease; N18.9 Chronic kidney disease, unspecified; I50.9 Heart failure, unspecified; E78.5 Hyperlipidemia, unspecified; E11.40 Type 2 diabetes mellitus with diabetic neuropathy, unspecified; I25.2 Old myocardial infarction; F17.200 Nicotine dependence, unspecified, uncomplicated; Y83.8 Other surgical procedures as the cause of abnormal reaction of the patient, or of later complication, without mention of misadventure at the time of the procedure; Z98.1 Arthrodesis status; Z79.4 Long term (current) use of insulin; Z85.038 Personal history of other malignant neoplasm of large intestine; Z89.612 Acquired absence of left leg above knee; Z20.822 Contact with and (suspected) exposure to COVID-19
CPT/HCPCS: J0692

== ENCOUNTER 2023-06-09 10:29 | Emergency (ER) | payer MEDICARE, MEDICAID ==
[~2023-06-09] VITALS: Ht 175.3 cm; Wt 67.8 kg
[2023-06-09] VITALS (26 sets, daily range): BP systolic 65–135; BP diastolic 29–122
[2023-06-09 11:22] LABS: BASO% 0.1 % (0-3); EOS% 0.1 % (0-8); LYMPH% 2.1 % (15-41); MEAN CELL VOLUME 116.3 fL CALC (80.0-100.0); MEAN CORPUSCULAR HGB 34.9 pG CALC (26.0-32.0); MONO% 3.2 % (2-13); NEUT# 27.38 thou/uL (1.82-7.42); NEUT% 93.5 % (42-76); RED BLOOD COUNT 1.72 mill/uL (4.70-6.10); RED CELL DISTRI WIDTH 17.7 % (11.5-15.5)
[2023-06-09 11:31] LABS: ALBUMIN 2.7 g/dL (3.2-5.0); ALKALINE PHOSPHATASE 252 u/l (38-126); BUN 79 mg/dL (9-20); BUN/CREATININE RATIO 19 (12-20 (CALC)); CHLORIDE 110 mmol/l (95-108); CREATININE 4.2 mg/dL (0.7-1.3); GFR FOR AFR.AMER. 18 ML/MIN (>=60 (CALC)); GFR OTHER RACES 15 ML/MIN (>=60 (CALC)); POTASSIUM 4.3 mmol/l (3.5-5.1); SGOT/AST 21 u/l (17-59); SODIUM 135 mmol/l (137-146)
[2023-06-09 11:55] LABS: INTERNATIONAL NORMALIZED RATIO 1.3 RATIO (0.7-1.3); PROTHROMBIN TIME 12.1 SECONDS (9.0-12.5)
[2023-06-09 11:57] LABS: ANION GAP 24 (6-22 (CALC)); BILIRUBIN, TOTAL 0.6 mg/dL (0.2-1.3); CARBON DIOXIDE < 5 mmol/l (22-30)
[2023-06-09] MEDS ORDERED: VITAMIN D-32000 UNI1 (12:02)
[2023-06-09] MEDS ORDERED: PHILLIPS MOM311 MG PO (12:02)
[2023-06-09] MEDS ORDERED: COQ-10100 MG PO (12:04)
[2023-06-09] MEDS ORDERED: SEROQUEL25 MG (12:05)
[2023-06-09] MEDS ORDERED: ATORVASTATIN CA20 MG PO (12:09)
[2023-06-09] MEDS ORDERED: ZOLOFT25 MG PO (12:10)
[2023-06-09] MEDS ORDERED: TORSEMIDE20 M1 PO (12:14)
[2023-06-09] MEDS ORDERED: GABAPENTIN300 M2 (12:18)
[2023-06-09] MEDS ORDERED: ISOSORBIDE DINI30 MG PO (12:18)
[2023-06-09] MEDS ORDERED: COZAAR50 MG PO (12:19)
[2023-06-09] MEDS ORDERED: ALEVE220 M1 PO (12:29)
== END 2023-06-09 16:32 ==
LOC: ED 10:29
PROVIDERS: Emergency Medicine
PROC: 30233N1 Transfusion of Nonautologous Red Blood Cells into Peripheral Vein, Percutaneous Approach (ICD-10-PCS; principal; 2023-06-09)
PROC: 30233N1 Transfusion of Nonautologous Red Blood Cells into Peripheral Vein, Percutaneous Approach (ICD-10-PCS; 2023-06-09)
DX: E11.69 Type 2 diabetes mellitus with other specified complication (principal); M46.26 Osteomyelitis of vertebra, lumbar region; K68.12 Psoas muscle abscess; E11.10 Type 2 diabetes mellitus with ketoacidosis without coma; D64.9 Anemia, unspecified; N17.9 Acute kidney failure, unspecified; I13.0 Hypertensive heart and chronic kidney disease with heart failure and stage 1 through stage 4 chronic kidney disease, or unspecified chronic kidney disease; E11.22 Type 2 diabetes mellitus with diabetic chronic kidney disease; N18.9 Chronic kidney disease, unspecified; I50.9 Heart failure, unspecified; E78.00 Pure hypercholesterolemia, unspecified; I25.2 Old myocardial infarction; E11.40 Type 2 diabetes mellitus with diabetic neuropathy, unspecified; F17.200 Nicotine dependence, unspecified, uncomplicated; Z86.14 Personal history of Methicillin resistant Staphylococcus aureus infection; Z89.612 Acquired absence of left leg above knee; Z89.611 Acquired absence of right leg above knee; Z20.822 Contact with and (suspected) exposure to COVID-19
CPT/HCPCS: P9016